=== PATIENT | female | born 1935 | race Caucasian/White ===

== ENCOUNTER 2017-06-09 09:00 | Inpatient (IN) | payer MEDICARE ==
--- OUTSIDE RECORDS SUMMARY | 2017-06-09 09:19 | XMS REPORT ---
:1935 External Reference #:[id number] Author Organization [facility] Address [address] [address] Phone [phone] Care Team Providers Name Role Phone Carmen Winter MD Primary Care Physician Unavailable Payers Type Date Identification Numbers Payment Provider Subscriber Commercial Policy Number: [id number] [employer] Rosalina Joya PayID: [id number] [address] [place] [address] Medigap Part B Expires: 2017 Policy Number: Medicare Rosalina Joya [id number] PayID: [id number] [address] [place] [address] Medigap Part B Expires: 2017 Policy Number: Aetna [facility] Rosalina Joya [id number] Group Number: [id number] [address] PayID: [id number] [place] [address] Problems Date Description Provider Status Onset: 10/01/2013 Atrial fibrillation Marsha Prado M.D. Active Onset: 10/01/2013 Difficulty breathing Marsha Prado M.D. Active Onset: 10/01/2013 Aortic valve disorder Marsha Prado M.D. Active Onset: 11/07/2014 Left bundle branch block Marsha Prado M.D. Active Onset: 11/21/2015 Paroxysmal atrial fibrillation Marsha Prado M.D. Active Onset: 07/04/2016 Essential hypertension Marsha Prado M.D. Active Onset: 08/06/2016 Obstructive sleep apnea syndrome Gretel Gimenez MD Active Family History Date Family Member(s) Problem(s) Comments General Hypertension General Congestive Heart Failure (CHF) General Arrhythmia General Alzheimer's Disease General Stroke Father Alzheimer's Disease Father due to Alzheimer's () Disease Mother Arrhythmia Mother due to Stroke () - at 84 years of age. Mother Stroke Social History Type Date Description Comments Marital Status Single Lives With Alone Occupation Retired ETOH Use Occasionally consumes alcohol Smoking Patient is a former smoker quit in 1997 1PPD x 40 years Recreational Drug Use Denies Drug Use Daily Caffeine Consumes on average 1 cup of regular coffee per day Daily Caffeine Iced Tea occassionally Exercise Type/Frequency Does not exercise PT Allergies, Adverse Reactions, Alerts Date Description Reaction Status Severity Comments 07/03/2012 Topical Sulfa Urticaria active Moderate to Severe 03/23/2013 Zestril Cough active Medications Medication Date Status Form Strength Qnty SIG Indications Ordering Provider Gabapentin 04/18/ Active Capsules 300mg 180ca 1 tabs by G25.0 Maggy Smith 2015 ps mouth every Stackman, morning and M.D. 2 tab by mouth every night Clonazepam 05/17/ Active Tablets 0.125mg 20tab 1 by mouth Maryanne 2014 Dispers s twice a day Cowdery, as needed M.D. tremor Potassium 09/13/ Active Tablets 10Meq 90tab 1 by mouth Marsha Chloride ER 2014 ER s every day Hayden Prado Spironolactone 07/05/ Active Tablets 25mg 90tab 1 tab by Marsha Johns s mouth every Ecru, day (takes M.D. with furosemide) (last taken 2 weeks ago Apr 2017 Flu) Primidone 01/01/ Active Tablets 50mg 540ta 3 po bid Jonny De La Cruz 2012 leighton Solis M.D. Cozaar 11/18/ Active Tablets 25mg 45tab 1/2 tab by Marsha 2012 s mouth every Eve, day M.D. Furosemide 07/02/ Active Tablets 20mg 180ta 2 tabs by Marsha manzanares mouth every Ecru, day as M.D. directed ( last taken approx 2 weeks ago Flu 04/2017) Pradaxa / Active Capsules 150mg 200ca po bid Unknown 0000 ps Flovent Diskus / Active Aerosol 50mcg/Bli 60uni inhale [address] ts puff by mouth 2 times a day prn for asthma Fish Oil / Active 1000mg 1 cap po Unknown 0000 daily (not taking) Calcium 0000/ Active 1200Iu daily Unknown 0000 Vitamin D / Active 2000Iu 1 tablet po Unknown 0000 daily Vitamin B-12 / Active Tablets 500mcg 90tab 1 po qd Unknown 0000 s Premarin / Active Cream 0.625mg/G 42.50 1 Unknown 0000 M 0gm application pv 3 x weekly Econazole / Active Cream 1% 30g prn Unknown Nitrate 0000 Triamcinolone / Active 0.1% b.i.d prn Unknown Cream 0000 Cpap / Active Device 1unit nightly Unknown 0000 s Halobetasol / Active Cream 0.05% 50uni apply Unknown Propionate 0000 ts topically twice daily prn Lotrisone / Active Cream 1-0.05% 15gm apply Unknown 0000 externally bid prn Proventil HFA / Active Aerosol 108(90Bas 1unit 2 puff(s) Unknown 0000 e) s inhalation mcg/Act four times a day as needed Vitamin C / Active Tablets 500mg 1 by mouth Unknown 0000 daily Loratadine / Active Tablets 10mg 1 by mouth Unknown Allergy Relief 0000 Dispers every day Nasacort Allergy / Active Aerosol 55mcg/Act 1 spray both Unknown 24HR 0000 nares once daily Topamax / Active Tablets 50mg 180ta 1 po bid Jonny S. 0000 leighton Solis M.D. Flecainide 05/15/ Hx Tablets 50mg 90tab 1/2 tablet I48.0 Marsha Acetate 2017 - s bid, take Eve, 06/03/ with 100 mg M.D. 2017 tablets. Pravastatin 06/23/ Hx Tablets 10mg 1 po qd Marsha Sodium 2013 - Eve, 06/23/ M.D. 2013 Pravastatin 06/23/ Hx Tablets 20mg 90tab 1 tablet by Marsha Sodium 2013 - s mouth once Ecru, 11/05/ daily at M.D. 2013 bedtime Flecainide 05/28/ Hx Tablets 100mg 180ta 1 by mouth Marsha Acetate 2012 twice a day Ecru, take with 25 M.D. 2018 mg for total 125 mg bid Spironolactone 05/28/ Hx Tablets 25mg 90tab 1 po qd Marsha 2012 Eve, M.D. 2012 Pravastatin 03/26/ Hx Tablets 20mg 90tab 1 tablet by Marsha Sodium 2011 mouth every Ecru, M.D. 2012 Potassium / Hx Tablets 10Meq 90tab 1 po qd Marsha Chloride CR - ER s Ecru, M.D. 2013 Primidone / Hx Tablets 100mg 90tab bid Unknown 0000 - s 2012 Gabapentin / Hx Capsules 300mg 360ca 1 tab in Am, Jonny S. 0000 - ps 2 tabs in PM Will, 04/18/ a M.D. 2016 day(titratin g dose to stop) Aldactone / Hx Tablets 25mg 30tab 1 po qd Unknown 0000 - s 2013 Cozaar / Hx Tablets 25mg 30tab 1 po qd Marsha - s Ecru, M.D. 2012 Pravachol / Hx Tablets 10mg 100ta 1 po qd Unknown 0000 - bs 2013 Lasix / Hx Tablets 20mg 30tab 1 po bid Unknown 0000 - s 2012 Nasacort Aq / Hx Aerosol 55mcg/Act 1unit use 1 spray Unknown 0000 - s ea nostril 12/18/ [facility] prn 2015 Aldactone / Hx Tablets 25mg 1 by mouth Unknown 0000 - every day 2014 Claritin / Hx Nasal 10mg 1 po qd Unknown 0000 - [place] 2016 Vital Signs Date Vital Result Comment 06/03/2017 Height 63 inches 5'3" Weight 131.75 lb with shoes Heart Rate 76 /min BP Systolic Sitting 102 mmHg LA, reg cuff BP Diastolic Sitting 58 mmHg LA, reg cuff BMI (Body Mass Index) 23.3 kg/m2 Ejection Fraction 55%-60% echo 01/23/17 05/22/2017 Height 63 inches 5'3" Weight 132.25 lb Heart Rate 68 /min BP Systolic 122 mmHg BP Diastolic 70 mmHg BMI (Body Mass Index) 23.4 kg/m2 05/15/2017 Height 63 inches 5'3" Weight 134.00 lb with shoes Heart Rate 101 /min BP Systolic Sitting 110 mmHg Lue reg cuff BP Diastolic Sitting 76 mmHg Lue reg cuff BP Systolic Standing 118 mmHg Lue reg cuff BP Diastolic Standing 70 mmHg Lue reg cuff Respiratory Rate 18 /min BMI (Body Mass Index) 23.7 kg/m2 Ejection Fraction 55-60% date 01/23/17 echo 01/01/2017 Height 63 inches 5'3" Weight 134.00 lb per pt` Heart Rate 64 /min reg BP Systolic Standing 130 mmHg Rue, reg cuff BP Diastolic Standing 80 mmHg Rue, reg cuff Respiratory Rate 16 /min O2 % BldC Oximetry 98 % on Ra BMI (Body Mass Index) 23.7 kg/m2 12/31/2016 Height 63 inches 5'3" Weight 133.38 lb per pt this Am 12/31/16 Heart Rate 62 /min BP Systolic Sitting 128 mmHg BP Diastolic Sitting 60 mmHg BP Systolic Standing 128 mmHg BP Diastolic Standing 60 mmHg Respiratory Rate 20 /min BMI (Body Mass Index) 23.6 kg/m2 Ejection Fraction 55-60% 12/14/2015-echo 11/19/2016 Height 63 inches 5'3" Weight 135.00 lb Heart Rate 62 /min BP Systolic Sitting 122 mmHg BP Diastolic Sitting 62 mmHg Respiratory Rate 24 /min O2 % BldC Oximetry 97 % room air BMI (Body Mass Index) 23.9 kg/m2 11/05/2016 Height 63 inches 5'3" Weight 135.00 lb Heart Rate 64 /min BP Systolic Sitting 128 mmHg BP Diastolic Sitting 60 mmHg Respiratory Rate 15 /min BMI (Body Mass Index) 23.9 kg/m2 10/01/2016 Height 63 inches 5'3" Weight 134.00 lb Heart Rate 68 /min BP Systolic Sitting 124 mmHg BP Diastolic Sitting 64 mmHg O2 % BldC Oximetry 96 % BMI (Body Mass Index) 23.7 kg/m2 08/06/2016 Height 63 inches 5'3" Weight 138.00 lb Heart Rate 56 /min BP Systolic Sitting 134 mmHg BP Diastolic Sitting 62 mmHg Respiratory Rate 16 /min O2 % BldC Oximetry 97 % BMI (Body Mass Index) 24.4 kg/m2 Neck Circumference in inches 13 07/04/2016 Height 63 inches 5'3" Weight 137.00 lb Heart Rate 60 /min BP Systolic Sitting 132 mmHg Lue reg cuff BP Diastolic Sitting 64 mmHg Lue reg cuff BP Systolic Standing 108 mmHg Lue BP Diastolic Standing 60 mmHg Lue Respiratory Rate 16 /min BMI (Body Mass Index) 24.3 kg/m2 Ejection Fraction 55-60% 12/14/15 04/18/2016 Height 63 inches 5'3" Weight 136.00 lb Heart Rate 68 /min BP Systolic Sitting 136 mmHg BP Diastolic Sitting 68 mmHg BMI (Body Mass Index) 24.1 kg/m2 12/29/2015 Height 63 inches 5'3" Weight 142.00 lb no shoes Heart Rate 62 /min BP Systolic Sitting 128 mmHg Ra reg cuff BP Diastolic Sitting 68 mmHg Ra reg cuff BP Systolic Standing 132 mmHg Ra reg cuff BP Diastolic Standing 70 mmHg Ra reg cuff Respiratory Rate 17 /min BMI (Body Mass Index) 25.2 kg/m2 Ejection Fraction 55-60% 12/14/2015 12/20/2015 Height 63 inches 5'3" Weight 144.50 lb Heart Rate 58 /min BP Systolic Sitting 124 mmHg BP Diastolic Sitting 64 mmHg Respiratory Rate 16 /min O2 % BldC Oximetry 97 % BMI (Body Mass Index) 25.6 kg/m2 11/21/2015 Height 63 inches 5'3" Weight 148.00 lb with shoes Heart Rate 62 /min BP Systolic Sitting 132 mmHg Ra reg cuff BP Diastolic Sitting 60 mmHg Ra reg cuff BP Systolic Standing 132 mmHg Ra reg cuff BP Diastolic Standing 60 mmHg Ra reg cuff Respiratory Rate 16 /min BMI (Body Mass Index) 26.2 kg/m2 Ejection Fraction 59% 10/07/13 06/14/2015 Height 63 inches 5'3" Weight 146.38 lb Heart Rate 64 /min BP Systolic Sitting 120 mmHg BP Diastolic Sitting 60 mmHg Respiratory Rate 14 /min BMI (Body Mass Index) 25.9 kg/m2 04/17/2015 Height 63 inches 5'3" Weight 148.38 lb without shoes Heart Rate 76 /min BP Systolic Sitting 136 mmHg LA reg cuff BP Diastolic Sitting 70 mmHg LA reg cuff BP Systolic Standing 128 mmHg LA reg cuff BP Diastolic Standing 62 mmHg LA reg cuff Respiratory Rate 16 /min BMI (Body Mass Index) 26.3 kg/m2 Ejection Fraction 59% date 10/07/13 ECHO 11/23/2014 Height 63 inches 5'3" Weight 148.00 lb Heart Rate 64 /min BP Systolic Sitting 112 mmHg BP Diastolic Sitting 64 mmHg Respiratory Rate 16 /min BMI (Body Mass Index) 26.2 kg/m2 11/07/2014 Height 63 inches 5'3" Weight 148.00 lb per pt Heart Rate 64 /min reg BP Systolic Sitting 114 mmHg Rue, reg cuff BP Diastolic Sitting 60 mmHg Rue, reg cuff BP Systolic Standing 106 mmHg Rue BP Diastolic Standing 64 mmHg Rue Respiratory Rate 18 /min BMI (Body Mass Index) 26.2 kg/m2 Ejection Fraction 59% as of 10/07/13 echo 05/17/2014 Height 63 inches 5'3" Weight 149.00 lb Heart Rate 64 /min BP Systolic Sitting 126 mmHg BP Diastolic Sitting 60 mmHg Respiratory Rate 16 /min BMI (Body Mass Index) 26.4 kg/m2 11/05/2013 Height 63 inches 5'3" Weight 150.00 lb with shoes Heart Rate 66 /min BP Systolic Sitting 146 mmHg LA reg cuff BP Diastolic Sitting 70 mmHg LA reg cuff BP Systolic Standing 132 mmHg LA reg cuff BP Diastolic Standing 68 mmHg LA reg cuff Respiratory Rate 16 /min BMI (Body Mass Index) 26.6 kg/m2 10/01/2013 Height 63 inches 5'3" Weight 151.00 lb w/o shoes (today 150lbs at home per pt) Heart Rate 62 /min BP Systolic Sitting 120 mmHg LA reg cuff BP Diastolic Sitting 60 mmHg LA reg cuff BP Systolic Standing 112 mmHg LA reg cuff BP Diastolic Standing 60 mmHg LA reg cuff Respiratory Rate 16 /min BMI (Body Mass Index) 26.7 kg/m2 04/26/2013 Height 65 inches 5'5" Weight 164.00 lb Heart Rate 58 /min BP Systolic Sitting 126 mmHg left arm, reg cuff BP Diastolic Sitting 76 mmHg left arm, reg cuff BP Systolic Standing 126 mmHg left arm, reg cuff BP Diastolic Standing 68 mmHg left arm, reg cuff Respiratory Rate 14 /min BMI (Body Mass Index) 27.3 kg/m2 03/23/2013 Height 65 inches 5'5" Weight 164.00 lb Heart Rate 68 /min BP Systolic Sitting 148 mmHg Ra reg cuff BP Diastolic Sitting 80 mmHg Ra reg cuff BP Systolic Standing 134 mmHg Ra BP Diastolic Standing 72 mmHg Ra Respiratory Rate 16 /min BMI (Body Mass Index) 27.3 kg/m2 07/03/2012 Heart Rate 60 /min BP Systolic Sitting 142 mmHg BP Diastolic Sitting 58 mmHg Respiratory Rate 14 /min Results Test Date Test Result H/L Range Note Rapid Influenza A & 05/09/2017 Influenza A Molecular NEGATIVE Negative 1 B Molecular Influenza B Molecular NEGATIVE Negative Laboratory test finding 05/09/2017 C Reactive Protein 27.03 mg/L High &lt ; 5.00 2 Comp Metabolic Panel 05/09/2017 Sodium 137 mmol/L 133-145 Potassium 3.9 mmol/L 3.5-5.0 Chloride 105 mmol/L 101-111 Co2 Carbon Dioxide 27 mmol/L 22-32 Anion Gap 5 mmol/L 2-11 Glucose 86 mg/dL 70-100 Blood Urea Nitrogen 18 mg/dL 6-24 Creatinine 1.06 mg/dL High 0.51-0.95 BUN/Creatinine Ratio 17.0 8-20 Calcium 8.2 mg/dL Low 8.6-10.3 Total Protein 6.1 g/dL Low 6.4-8.9 Albumin 2.7 g/dL Low 3.2-5.2 Globulin 3.4 g/dL 2-4 Albumin/Globulin Ratio 0.8 Low 1-3 Total Bilirubin 0.20 mg/dL 0.2-1.0 Alkaline Phosphatase 48 U/L 34-104 Alt 5 U/L Low 7-52 Ast 12 U/L Low 13-39 Egfr Non- 49.4 >60 Egfr 63.5 >60 3 CBC Auto Diff 05/09/2017 White Blood Count 6.0 10^3/uL 3.5-10.8 Red Blood Count 3.30 10^6/uL Low 4.0-5.4 Hemoglobin 9.2 g/dL Low 12.0-16.0 Hematocrit 29 % Low 35-47 Mean Corpuscular Volume 87 fL 80-97 Mean Corpuscular Hemoglobin 28 pg 27-31 Mean Corpuscular HGB Conc 32 g/dL 31-36 Red Cell Distribution Width 17 % High 10.5-15 Platelet Count 250 10^3/uL 150-450 Mean Platelet Volume 7 um3 Low 7.4-10.4 Abs Neutrophils 4.6 10^3/uL 1.5-7.7 Abs Lymphocytes 0.9 10^3/uL Low 1.0-4.8 Abs Monocytes 0.4 10^3/uL 0-0.8 Abs Eosinophils 0.1 10^3/uL 0-0.6 Abs Basophils 0 10^3/uL 0-0.2 Abs Nucleated RBC 0 10^3/uL Granulocyte % 76.7 % 38-83 Lymphocyte % 14.6 % Low 25-47 Monocyte % 7.3 % 1-9 Eosinophil % 0.9 % 0-6 Basophil % 0.5 % 0-2 Nucleated Red Blood Cells % 0.1 Laboratory test finding 05/09/2017 Rapid Influenza A B SEE RESULT BELOW 4 Antigen Basic Metabolic Panel 11/24/2012 Sodium 137 mmol/L 133-145 Potassium 4.3 mmol/L 3.5-5.0 Chloride 103 mmol/L 101-111 Co2 Carbon Dioxide 27.0 mmol/L 22-32 Anion Gap 7.0 mmol/L 2-11 Glucose 83 mg/dL 70-100 Blood Urea Nitrogen 13 mg/dL 6-24 Creatinine 0.90 mg/dL 0.50-1.40 BUN/Creatinine Ratio 14.4 8-20 Calcium 9.3 mg/dL 8.1-9.9 Egfr Non- 60.4 >60 Egfr 77.7 >60 5 1 Fisher Trap: [id number] 2 Acute inflammation: >10.00 3 Because ethnic data is not always readily available, this report includes an eGFR for both -Americans and non- Americans. The National Kidney Disease Education Program (NKDEP) does not endorse the use of the MDRD equation for patients that are not between the ages of 18 and 70, are , have extremes of body size, muscle mass, or nutritional status, or are non- or non-. According to the National Kidney Foundation, irrespective of diagnosis, the stage of the disease is based on the level of kidney function: Stage Description GFR(mL/min/1.73 m(2)) 1 Kidney damage with normal or decreased GFR 90 2 Kidney damage with mild decrease in GFR 60-89 3 Moderate decrease in GFR 30-59 4 Severe decrease in GFR 15-29 5 Kidney failure <15 (or dialysis) 4 SEE RESULT BELOW Name: ROSALINA JOYA : [address]: Marsha Prado MD Acct: [id number] Unit: [id number] AGE: 82 Location: [facility] Re05/09/17 SEX: F Status: REG REF SPEC: [id number] JOSEPH: 05/09/[address] [facility] [address]: Marsha Prado MD REQ: [id number] RECD: 05/09/17 STATUS: KEITH CHACON DR: Carmen Winter MD _ SOURCE: NASAL SPDESC: ORDERED: Flu A B Request Procedure Result Reported Site Rapid Influenza A B Request Final 05/09/17- 1156 ML Specimen received for Influenza A/B Molecular testing * ML - MAIN LAB ([facility]) . END OF REPORT * ML=Testing performed at Main Lab DEPARTMENT OF PATHOLOGY, [address] [place] [address] Devin Syed M.D. Director [facility] # [id number] 5 Because ethnic data is not always readily available, this report includes an eGFR for both -Americans and non- Americans. The National Kidney Disease Education Program (NKDEP) does not endorse the use of the MDRD equation for patients that are not between the ages of 18 and 70, are , have extremes of body size, muscle mass, or nutritional status, or are non- or non-. According to the National Kidney Foundation, irrespective of diagnosis, the stage of the disease is based on the level of kidney function: Stage Description GFR(mL/min/1.73 m(2)) 1 Kidney damage with normal or decreased GFR 90 2 Kidney damage with mild decrease in GFR 60-89 3 Moderate decrease in GFR 30-59 4 Severe decrease in GFR 15-29 5 Kidney failure <15 (or dialysis) Procedures Date CPT Code Description Status 06/03/2017 85051 EKG Tracing & Interpretation Completed 05/19/2017 30136 Cardioversion Completed 05/15/2017 66393 EKG Tracing & Interpretation Completed 05/09/2017 23071 Cardioversion Completed 05/07/2017 74971 EKG Tracing & Interpretation Completed 01/23/2017 03457 ECHO Transthoracic, Real-Time 2D With Doppler And Color Completed Flow 01/23/2017 91457 ECHO Transthoracic, Real-Time 2D With Doppler And Color Completed Flow 12/31/2016 86525 EKG Tracing & Interpretation Completed 07/04/2016 33613 EKG Tracing & Interpretation Completed 12/14/2015 22755 ECHO Transthoracic, Real-Time 2D With Doppler And Color Completed Flow 11/21/2015 64596 EKG Tracing & Interpretation Completed 04/17/2015 14475 EKG Tracing & Interpretation Completed 04/17/2015 42512 EKG Tracing & Interpretation Completed 11/07/2014 74074 EKG Tracing & Interpretation Completed 10/18/2013 23657 ECHO Stress Test Incl Perf Contiuous ekg Monitoring Completed W/Phys Superv 10/07/2013 03492 ECHO Transthoracic, Real-Time 2D With Doppler And Color Completed Flow 10/01/2013 82588 EKG Tracing & Interpretation Completed 03/16/2013 23732 ECHO Transthoracic, Real-Time 2D With Doppler And Color Completed Flow 11/03/2012 23735 EKG Tracing & Interpretation Completed 08/13/2012 82587 Carpal Tunnel Release Completed 08/13/2012 88881 Carpal Tunnel Release Completed 04/24/2012 14470 Rad Exam; Wrist Limited, 2 Views Completed 04/24/2012 40261 Rad Exam; Wrist Limited, 2 Views Completed 04/10/2012 33863 Rad Exam; Wrist Limited, 2 Views Completed 04/10/2012 92826 Rad Exam; Wrist Limited, 2 Views Completed 04/10/2012 07019 Short Arm Cast Application Completed 04/07/2012 50062 EKG, Tracing Only, No Interpretation Completed 04/07/2012 39030 EKG, Interpretation Only Completed 03/27/2012 13189 Rad Exam; Wrist Limited, 2 Views Completed 03/27/2012 38807 Rad Exam; Wrist Limited, 2 Views Completed 03/27/2012 44679 Short Arm Cast Application Completed 03/27/2012 09138 Short Arm Cast Application Completed 03/27/2012 44792 CLST TRMT Distal Radial FX Completed 03/13/2012 35908 Open TX Of Distal Radial Intra-Articular FX Or Completed Epiphyseal Septn 03/13/2012 43238 Open TX Of Distal Radial Intra-Articular FX Or Completed Epiphyseal Septn 11/25/2011 71477 Polysomnography Sleep Staging 4+ Parameters W/Cpap Completed 11/25/2011 77180 Polysomnography Sleep Staging 4+ Parameters W/Cpap Completed Encounters Type Date Location Provider CPT E/M Dx Office Visit 05/22/2017 [facility] Jonny Solis, 34321 I48.0 10:30a M.DFreya G25.0 Office Visit 05/15/2017 1:00p [facility] Marsha Prado M.D. 02628 I48.0 Animal Technician I44.7 Office Visit 01/01/2017 1:00p [facility] [place], 80962 G47.33 [facility] LOGAN ARTHUR, [facility] Office Visit 12/31/2016 3:00p [facility] Marsha Prado M.D. 74728 I44.7 [facility] I35.0 I48.0 R06.02 Office Visit 11/19/2016 3:00p [facility] [place], 75884 G47.33 [facility] LOGAN ARTHUR, [facility] R09.02 F45.8 Office Visit 11/05/2016 10:30a [facility] Jonny Solis, 32199 G25.0 [facility] Hayden R26.0 Office Visit 10/01/2016 1:30p [facility] [place] [address] G47.33 [facility] Office Visit 08/06/2016 2:45p [facility] [place] [address] G47.33 [facility] R68.2 I48.0 I42.9 Office Visit 07/04/2016 4:00p [facility] Marsha Prado M.D. 64091 I35.0 Joel I48.0 I44.7 I10 Office Visit 04/18/2016 9:45a [facility] Jonny Solis, 87074 G25.0 M.DFreya Office Visit 12/29/2015 1:15p [facility] Marsha Prado, 15778 I35.0 Hayden I48.0 R53.1 Office Visit 12/20/2015 2:45p [facility] Jonny Solis 68244 G25.0 Services Of Joel Blake R26.0 Office Visit 11/21/2015 11:15a [facility] Christopher Prado M.D. 63112 I44.7 Joel I35.0 I48.0 R53.1 R53.83 G47.33 I10 Office Visit 06/14/2015 2:45p [facility] Jonny Solis, 93417 G25.0 Services Of Animal Technician M.DFreya Office Visit 04/17/2015 3:00p [facility] DEX Barnard 95227MHB I48.0 Animal Technician I44.7 I35.0 Office Visit 11/23/2014 3:45p [facility] Jonny Solis, 42762 333.1 Services Of Joel Blake 781.3 Office Visit 11/07/2014 1:45p [facility] Marsha Prado M.D. 41569 427.31 Animal Technician 424.1 426.3 780.50 Office Visit 05/17/2014 11:45a [facility] Jonny Solis, 00976 333.1 Services Of Joel M.DFreya Office Visit 11/05/2013 2:00p [facility] Marsha Prado M.D. 94637 786.09 Animal Technician 780.79 424.1 426.3 Office Visit 10/01/2013 1:15p [facility] Marsha Prado M.D. 37954 427.31 [facility] 786.09 424.1 Office Visit 04/26/2013 1:00p [facility] Nurse Visit 81563 401.9 [facility] Office Visit 03/30/2013 11:00a [facility] Tanisha Campos M.D. 50553 354.0 C.M.AFreya Office Visit 03/23/2013 3:15p [facility] Marsha Prado M.D. 24025 424.1 Animal Technician 427.31 401.9 E880.9 Office Visit 01/04/2013 11:15a [facility] Lore Alvarez 52610 354.0 Of C.M.AFreya Blake 354.2 Office Visit 01/01/2013 11:45a [facility] Jonny Solis, 80973 333.1 Services Of Joel Blake 781.3 Office Visit 11/03/2012 2:45p [facility] Marsha Prado M.D. 26910 427.31 Animal Technician 424.1 401.9 272.0 Office Visit 07/03/2012 11:30a [facility] Jonny Solis, 20692 333.1 Services Of [facility] Hayden 781.3 Office Visit 04/07/2012 12:45p [facility] Marsha Prado M.D. 47888 427.31 [facility] 427.31 401.9 Office Visit 03/18/2012 4:09p [facility], Jessica Arnold, 78198 401.9 Hospitalists M.D. 780.53 814.12 814.09 Office Visit 03/17/2012 4:09p [facility], Jessica rAnold, 97442 401.9 Hospitalists M.D. 780.53 814.12 814.09 Office Visit 03/16/2012 4:08p [facility], Jessica Arnold, 58563 814.12 Hospitalists M.D. 814.09 401.9 780.53 Office Visit 03/15/2012 4:07p [facility], Jessica Arnold, 54153 780.53 Hospitalists M.DFreya 401.9 814.12 814.09 Office Visit 03/14/2012 4:07p [facility], Jessica Arnold, 45642 780.53 Hospitalists M.D. 401.9 814.12 814.09 Office Visit 03/12/2012 4:07p [facility], Abdifatah Tilley M.D. 04267 401.9 Hospitalists 780.53 814.12 814.09 Office Visit 03/11/2012 4:06p [facility], Abdifatah Tilley M.D. 67158 814.12 Hospitalists 814.09 401.9 780.53 Plan of Care Future Appointment(s):06/24/2017 11:00 am - Marsha Prado M.D. at [facility]06/10/2017 1:30 pm - Nurse Visit IC at [facility]11/26/2017 2:45 pm - Jonny Solis M.D. at [facility]06/23/2017 4:00 pm - Marsha Prado M.D. at [facility]2017 2:00 pm - Ica Nuclear Schedule at [facility]05/22/2017 - Jonny Solis M.D.I48.0 Paroxysmal atrial fibrillationFollow up:6 MONTHSRecommendations:increase primidone to 150 mg twice a dayG25.0 Essential tremor
--- OUTSIDE RECORDS SUMMARY | 2017-06-09 09:20 | XMS REPORT ---
:1935 External Reference #:[id number] [facility] Address [address] [address] Phone [phone] Care Team Providers Name Role Phone Carmen Winter MD Primary Care Physician Unavailable Payers Type Date Identification Numbers Payment Provider Subscriber Commercial Policy Number: [id number] [employer] Rosalina Joya PayID: [id number] [address] [place] [address] Medigap Part B Expires: 2017 Policy Number: Medicare Rosalina Joya [id number] PayID: [id number] [address] [place] [address] Medigap Part B Expires: 2017 Policy Number: [employer] [facility] Rosalina Joya [id number] Group Number: [id number] [address] PayID: [id number] [place] [address] Problems Date Description Provider Status Onset: 10/01/2013 [...] Form Strength Qnty SIG Indications Ordering Provider Flecainide 05/15/ Active Tablets 50mg 90tab 1/2 tablet I48.0 Marsha Acetate 2017 s bid, take [place], with 100 mg M.D. tablets. Gabapentin 04/18/ Active Capsules 300mg 180ca 1 tabs by G25.0 Maggy Smith 2015 ps mouth every [place], morning and M.D. 2 tab by mouth every night Clonazepam 05/17/ Active Tablets 0.125mg 20tab 1 by mouth Maryanne 2014 Dispers s twice a day [place], as needed M.D. tremor Potassium 09/13/ Active Tablets 10Meq 90tab 1 by mouth Marsha Chloride ER 2013 ER s every day Hayden Prado Spironolactone 07/05/ Active Tablets 25mg 90tab 1 tab by Marsha Johns s mouth every [place], day (last M.D. taken 2 weeks ago Apr 2017 Flu) Primidone 01/01/ Active Tablets 50mg 540ta 3 po bid Jonny De La Cruz 2012 leighton Solis M.D. Cozaar 11/18/ Active Tablets 25mg 45tab 1/2 tab by Marsha Casey s mouth every [place], day M.D. Furosemide 07/02/ Active Tablets 20mg 180ta 2 tabs by Marsha manzanares mouth every [place], day as M.D. directed ( last taken approx 2 weeks ago Flu 04/2017) Flecainide 05/28/ Active Tablets 100mg 180ta 1 by mouth Marsha Acetate 2012 bs twice a day [place], take with 25 M.D. mg for total 125 mg bid Pradaxa 00/ Active Capsules 150mg 200ca po bid Unknown 0000 ps Flovent Diskus / Active Aerosol 50mcg/Bli 60uni inhale [address] ts puff by mouth 2 times a day prn for asthma Fish Oil / Active 1000mg 1 cap po Unknown 0000 daily (not taking) Calcium 00/ Active 1200Iu daily Unknown 0000 Vitamin D / Active 2000Iu 1 tablet po Unknown 0000 daily Vitamin B-12 / Active Tablets 500mcg 90tab 1 po qd Unknown 0000 s Premarin 00/ Active Cream 0.625mg/G 42.50 1 Unknown 0000 M 0gm application pv 3 x weekly Econazole / Active Cream 1% 30g prn Unknown Nitrate 0000 Triamcinolone / Active 0.1% b.i.d prn Unknown Cream 0000 Cpap 00/ Active Device 1unit nightly Unknown 0000 s Halobetasol 00/ Active Cream 0.05% 50uni apply Unknown Propionate 0000 ts topically twice daily prn Lotrisone / Active Cream 1-0.05% 15gm apply Unknown 0000 externally bid prn Proventil HFA / Active Aerosol 108(90Bas 1unit 2 puff(s) Unknown 0000 e) s inhalation mcg/Act four times a day as needed Vitamin C / Active Tablets 500mg 1 by mouth Unknown 0000 daily Loratadine 00/ Active Tablets 10mg 1 by mouth Unknown Allergy Relief 0000 Dispers every day Nasacort Allergy / Active Aerosol 55mcg/Act 1 spray both Unknown 24HR 0000 nares once daily Topamax / Active Tablets 50mg 180ta 1 po bid Jonny S. 0000 bs Hayden Solis Pravastatin 06/23/ Hx Tablets 10mg 1 po qd Marsha Sodium 2013 - Eve 06/23/ Hayden 2013 Pravastatin 06/23/ Hx Tablets 20mg 90tab 1 tablet by Marsha Sodium 2013 - s mouth once [place], 11/05/ daily at M.D. 2013 bedtime Spironolactone 05/28/ Hx Tablets 25mg 90tab 1 po qd Marsha 2012 s Eve, M.D. 2012 Pravastatin 03/26/ Hx Tablets 20mg 90tab 1 tablet by Marsha Sodium 2011 - s mouth every [place], day M.D. 2012 Potassium / Hx Tablets 10Meq 90tab 1 po qd Marsha Chloride CR - ER s Eve, M.D. 2013 Primidone / Hx Tablets 100mg 90tab bid Unknown - s 2012 Gabapentin / Hx Capsules 300mg 360ca 1 tab in Am, S. 0000 - ps 2 tabs in PM Will, 04/18/ M.D. 2016 day(titratin g dose to stop) Aldactone / Hx Tablets 25mg 30tab 1 po qd Unknown - s 2013 Cozaar / Hx Tablets 25mg 30tab 1 po qd Marsha s Eve, M.D. 2012 Pravachol / Hx Tablets 10mg 100ta 1 po qd Unknown 0000 - bs 2013 Lasix / Hx Tablets 20mg 30tab 1 po bid Unknown 0000 - s 2012 Nasacort Aq / Hx Aerosol 55mcg/Act 1unit use 1 spray Unknown - s ea nostril 12/18/ [facility] prn 2016 Aldactone / Hx Tablets 25mg 1 by mouth Unknown 0000 - every day 2014 Claritin / Hx Nasal 10mg 1 po qd Unknown 0000 - [place] 2016 Vital Signs Date Vital Result Comment 05/22/2017 Height 63 inches 5'3" Weight 132.25 [...] Test Date Test Result H/L Range Note Laboratory test 05/09/2017 C Reactive Protein 27.03 mg/L High < 5.00 1 finding Rapid Influenza A 05/09/2017 Influenza A Molecular NEGATIVE Negative 2 & B Molecular Influenza B Molecular NEGATIVE Negative Laboratory test finding 05/09/2017 Rapid Influenza A B SEE RESULT BELOW 3 Antigen Comp Metabolic Panel 05/09/2017 Sodium 137 mmol/L [...] Egfr Non- 49.4 >60 Egfr 63.5 >60 4 CBC Auto Diff 05/09/2017 White Blood Count [...] 0-2 Nucleated Red Blood Cells % 0.1 Basic Metabolic Panel 11/24/2012 Sodium 137 mmol/L 133-145 Potassium 4.3 mmol/L 3.5-5.0 Chloride 103 mmol/L 101-111 Co2 Carbon Dioxide 27.0 mmol/L 22-32 Anion Gap 7.0 mmol/L 2-11 Glucose 83 mg/dL 70-100 Blood Urea Nitrogen 13 mg/dL 6-24 Creatinine 0.90 mg/dL 0.50-1.40 BUN/Creatinine Ratio 14.4 8-20 Calcium 9.3 mg/dL 8.1-9.9 Egfr Non- 60.4 >60 Egfr 77.7 >60 5 1 Acute inflammation: >10.00 2 Batch Analyst: [id number] 3 SEE RESULT BELOW Name: ROSALINA JOYA : [address]: Marsha Prado MD Acct: [id number] Unit: [id number] AGE: 82 Location: [facility] Re05/09/17 SEX: F Status: REG REF SPEC: [id number] JOSEPH: 05/09/17-[address]: Marsha Prado MD REQ: [id number] RECD: 05/09/17 STATUS: COMP OT DR: Carmen Winter MD _ SOURCE: NASAL SPDESC: ORDERED: Flu A B Request Procedure Result Reported Site Rapid Influenza A B Request Final 05/09/17- 1156 ML Specimen received for Influenza A/B Molecular testing * ML - MAIN LAB ([facility]) . END OF REPORT * ML=Testing performed at Main Lab DEPARTMENT OF PATHOLOGY, [address] [place] [address] Devin Syed M.D. Director [facility] # [id number] 4 Because ethnic data is not always readily [...] 15-29 5 Kidney failure <15 (or dialysis) 5 Because ethnic data is not always [...] dialysis) Procedures Date CPT Code Description Status 05/15/2017 01064 EKG Tracing & Interpretation Completed 05/09/2017 35222 Cardioversion Completed 05/07/2017 56702 EKG Tracing & Interpretation Completed 01/23/2017 18850 ECHO Transthoracic, Real-Time 2D With Doppler And Color Completed Flow 01/23/2017 49830 ECHO Transthoracic, Real-Time 2D With Doppler And Color Completed Flow 12/31/2016 98242 EKG Tracing & Interpretation Completed 07/04/2016 47081 EKG Tracing & Interpretation Completed 12/14/2015 42067 ECHO Transthoracic, Real-Time 2D With Doppler And Color Completed Flow 11/21/2015 70881 EKG Tracing & Interpretation Completed 04/17/2015 70772 EKG Tracing & Interpretation Completed 04/17/2015 95264 EKG Tracing & Interpretation Completed 11/07/2014 54608 EKG Tracing & Interpretation Completed 10/18/2013 56932 ECHO Stress Test Incl Perf Contiuous ekg Monitoring Completed W/Phys Superv 10/07/2013 05595 ECHO Transthoracic, Real-Time 2D With Doppler And Color Completed Flow 10/01/2013 30553 EKG Tracing & Interpretation Completed 03/16/2013 93123 ECHO Transthoracic, Real-Time 2D With Doppler And Color Completed Flow 11/03/2012 91494 EKG Tracing & Interpretation Completed 08/13/2012 46092 Carpal Tunnel Release Completed 08/13/2012 51323 Carpal Tunnel Release Completed 04/24/2012 32209 Rad Exam; Wrist Limited, 2 Views Completed 04/24/2012 46046 Rad Exam; Wrist Limited, 2 Views Completed 04/10/2012 62335 Rad Exam; Wrist Limited, 2 Views Completed 04/10/2012 79161 Rad Exam; Wrist Limited, 2 Views Completed 04/10/2012 19603 Short Arm Cast Application Completed 04/07/2012 91908 EKG, Interpretation Only Completed 04/07/2012 95376 EKG, Tracing Only, No Interpretation Completed 03/27/2012 43129 CLST TRMT Distal Radial FX Completed 03/27/2012 11418 Short Arm Cast Application Completed 03/27/2012 09695 Short Arm Cast Application Completed 03/27/2012 39280 Rad Exam; Wrist Limited, 2 Views Completed 03/27/2012 05028 Rad Exam; Wrist Limited, 2 Views Completed 03/13/2012 43972 Open TX Of Distal Radial Intra-Articular FX Or Completed Epiphyseal Septn 03/13/2012 22783 Open TX Of Distal Radial Intra-Articular FX Or Completed Epiphyseal Septn 11/25/2011 80432 Polysomnography Sleep Staging 4+ Parameters W/Cpap Completed 11/25/2011 24965 Polysomnography Sleep Staging 4+ Parameters W/Cpap Completed Encounters Type Date Location Provider CPT E/M Dx Office Visit 01/01/2017 [facility] [place], 61199 G47.33 1:00p Services Of Joel ARTHUR RN, JAQUELIN Office Visit 12/31/2016 [facility] Marsha Prado M.D. 47709 I44.7 3:00p Joel I35.0 I48.0 R06.02 Office Visit 11/19/2016 3:00p [facility] [place], 80762 G47.33 Services Of Joel ARTHUR RN, JAQUELIN R09.02 F45.8 Office Visit 11/05/2016 10:30a [facility] Jonny Solis, 31900 G25.0 Services Of Operating Room Orderly M.D. R26.0 Office Visit 10/01/2016 1:30p [facility] [place] [address] G47.33 Services Of Operating Room Orderly Office Visit 08/06/2016 2:45p [facility] [place] [address] G47.33 Services Of Operating Room Orderly R68.2 I48.0 I42.9 Office Visit 07/04/2016 4:00p [facility] Marsha Prado M.D. 92244 I35.0 Operating Room Orderly I48.0 I44.7 I10 Office Visit 04/18/2016 9:45a [facility] Jonny Solis 09235 G25.0 M.D. Office Visit 12/29/2015 1:15p [facility] Joel Prado 12947 I35.0 M.DFreya I48.0 R53.1 Office Visit 12/20/2015 2:45p [facility] Jonny Solis 72111 G25.0 Services Of Operating Room Orderly M.D. R26.0 Office Visit 11/21/2015 11:15a [facility] Marsha Prado M.D. 84058 I44.7 Joel I35.0 I48.0 R53.1 R53.83 G47.33 I10 Office Visit 06/14/2015 2:45p [facility] Jonny Solis 64388 G25.0 Services Of Operating Room Orderly M.D. Office Visit 04/17/2015 3:00p [facility] DEX Barnard 95588TDW I48.0 Operating Room Orderly I44.7 I35.0 Office Visit 11/23/2014 3:45p [facility] Jonny Solis 80228 333.1 Services Of Operating Room Orderly M.D. 781.3 Office Visit 11/07/2014 1:45p [facility] Marsha Prado M.D. 68010 427.31 Operating Room Orderly 424.1 426.3 780.50 Office Visit 05/17/2014 11:45a [facility] Jonny Solis 56773 333.1 Services Of Operating Room Orderly M.D. Office Visit 11/05/2013 2:00p [facility] Marsha Prado M.D. 60296 786.09 Operating Room Orderly 780.79 424.1 426.3 Office Visit 10/01/2013 1:15p [facility] Marsha Prado M.D. 42726 427.31 Operating Room Orderly 786.09 424.1 Office Visit 04/26/2013 1:00p [facility] Nurse Visit 02507 401.9 Operating Room Orderly Office Visit 03/30/2013 11:00a [facility] Of Tanisha Campos M.D. 04425 354.0 C.M.A. Office Visit 03/23/2013 3:15p [facility] Marsha Prado M.D. 01728 424.1 Operating Room Orderly 427.31 401.9 E880.9 Office Visit 01/04/2013 11:15a [facility] Lore Alvarez, 02047 354.0 Of C.M.AFreya Blake 354.2 Office Visit 01/01/2013 11:45a [facility] Jonny Solis, 25506 333.1 Services Of [facility] M.DFreya 781.3 Office Visit 11/03/2012 2:45p [facility] Marsha Prado M.D. 19261 427.31 [facility] 424.1 401.9 272.0 Office Visit 07/03/2012 11:30a [facility] Jonny Solis, 31571 333.1 Services Of Operating Room Orderly M.DFreya 781.3 Office Visit 04/07/2012 12:45p [facility] Marsha Prado M.D. 16415 427.31 Operating Room Orderly 427.31 401.9 Office Visit 03/18/2012 4:09p [facility], Jessica Arnold, 19640 401.9 Hospitalists M.D. 780.53 814.12 814.09 Office Visit 03/17/2012 4:09p [facility], Jessica Arnold, 54133 401.9 Hospitalists M.DFreya 780.53 814.12 814.09 Office Visit 03/16/2012 4:08p [facility], Jessica Arnold, 58815 814.12 Hospitalists M.D. 814.09 401.9 780.53 Office Visit 03/15/2012 4:07p [facility], Jessicakarley Arnold, 47175 780.53 Hospitalists Hayden 401.9 814.12 814.09 Office Visit 03/14/2012 4:07p [facility], Jessica Arnold, 30373 780.53 Hospitalists [place]den 401.9 814.12 814.09 Office Visit 03/12/2012 4:07p [facility], Abdifatah Tilley M.D. 74097 401.9 Hospitalists 780.53 814.12 814.09 Office Visit 03/11/2012 4:06p [facility], Abdifatah Tilley M.D. 67383 814.12 Hospitalists 814.09 401.9 780.53 Plan of Care Future Appointment(s):11/26/2017 2:45 pm - Jonny Solis M.D. at [facility]06/23/2017 4:00 pm - Marsha Prado M.D. at [facility]06/12/2017 2:00 pm - Ica Nuclear Schedule at [facility]05/22/2017 - Jonny Solis M.D.I48.0 Paroxysmal atrial fibrillationFollow up:6 MONTHSRecommendations:increase primidone to 150 mg twice a dayG25.0 Essential tremor
--- OUTSIDE RECORDS SUMMARY | 2017-06-09 09:20 | XMS REPORT ---
:1935 External Reference #:[id number] Author Organization [facility] Address [address] [address] Phone [phone] Care Team Providers Name Role Phone Carmen Winter MD Primary Care Physician Unavailable Payers Type Date Identification Numbers Payment Provider Subscriber Medicare Primary Policy Number: [id number] Medicare Rosalina Joya PayID: [id number] [address] [place] [address] [facility] Policy Number: [id number] [employer] Rosalina Joya Group Number: [id number] [address] PayID: [id number] [place] [address] Problems Date Description Provider Status Onset: 10/01/2013 [...] 50mg 90tab 1/2 tablet I48.0 Marsha Acetate 2018 s bid, take [place], with 100 mg M.D. tablets. Gabapentin 04/18/ [...] Chloride ER 2014 ER s every day Eve, M.D. Spironolactone 07/05/ Active Tablets 25mg 90tab 1 tab by Marsha Johns s mouth every [place], day (last M.D. taken 2 weeks ago Apr 2017 Flu) Primidone 01/01/ Active Tablets 50mg 360ta 3 in am by Jonny Casey bs mouth two at [place], night M.D. Cozaar 11/18/ Active Tablets 25mg 45tab 1/2 tab by Marsha 2012 s mouth every [place], day M.D. Furosemide 07/02/ Active Tablets 20mg 180ta 2 tabs by Marsha Casey bs mouth every [place], day as M.D. directed ( last taken approx 2 weeks ago Flu 04/2017) Flecainide 05/28/ Active Tablets 100mg 180ta 1 by mouth Marsha Acetate Carmela bs twice a day Eve, take with 25 M.D. mg for total 125 mg bid Pradaxa 0000/ Active Capsules 150mg 200ca po bid Unknown 0000 ps Flovent Diskus / Active Aerosol 50mcg/Bli 60uni inhale [address] ts puff by mouth 2 times a day prn for asthma Fish Oil / Active 1000mg 1 cap po Unknown 0000 daily (not taking) Calcium 00/00/ Active 1200Iu daily Unknown 0000 Vitamin D [...] bid Jonny S. 0000 leighton Solis M.D. Pravastatin 06/23/ Hx Tablets 10mg 1 po qd Marsha Sodium 2013 - Eve, 06/23/ M.D. 2013 Pravastatin 06/23/ Hx Tablets 20mg 90tab 1 tablet by Marsha Sodium 2013 mouth once Eve, 11/05/ daily at M.DFreya 2013 bedtime Spironolactone 05/28/ Hx Tablets 25mg 90tab 1 po qd Marsha 2012 - Eve, M.D. 2012 Pravastatin 03/26/ Hx Tablets 20mg 90tab 1 tablet by Marsha Sodium 2011 mouth every , M.D. 2012 Potassium / Hx Tablets 10Meq 90tab 1 po qd Marsha Chloride CR - ER s [place], M.D. 2013 Primidone / Hx Tablets 100mg 90tab bid Unknown 0000 - s 2012 Gabapentin / Hx Capsules 300mg 360ca 1 tab in Am, Jonny SFreya 0000 - ps 2 tabs in PM Will, M.D. 2016 day(titratin g dose to stop) Aldactone / Hx Tablets 25mg 30tab 1 po qd Unknown 0000 - s 2013 Cozaar / Hx Tablets 25mg 30tab 1 po qd Marsha - s [place], M.D. 2012 Pravachol / Hx Tablets 10mg 100ta 1 po qd Unknown 0000 - bs 2013 Lasix / Hx Tablets 20mg 30tab 1 po bid Unknown 0000 - s 2012 Nasacort Aq / Hx Aerosol 55mcg/Act 1unit use 1 spray Unknown - s ea nostril 12/18/ [facility] 2016 Aldactone / Hx Tablets 25mg 1 by mouth Unknown 0000 - every day 2014 Claritin / Hx Nasal 10mg 1 po qd Unknown 0000 - [place] 2016 Vital Signs Date Vital Result Comment 05/15/2017 Height 63 inches 5'3" Weight 134.00 [...] >60 5 1 Acute inflammation: >10.00 2 Food Tester: [id number] 3 SEE RESULT BELOW Name: ROSALINA JOYA : [address]: Marsha Prado MD Acct: [id number] Unit: [id number] AGE: 82 Location: [facility] Re05/09/17 SEX: F Status: REG REF SPEC: [id number] JOSEPH: 05/09/[address] [facility] [address]: Marsha Prado MD REQ: [id number] RECD: 05/09/17 STATUS: KEITH CHACON DR: Carmen Winter MD _ SOURCE: NASAL SPDESC: ORDERED: Flu A B Request Procedure Result Reported Site Rapid Influenza A B Request Final 05/09/17- 1156 ML Specimen received for Influenza A/B Molecular testing * ML - MAIN LAB ([facility]) . END OF REPORT * ML=Testing performed at Main Lab DEPARTMENT OF PATHOLOGY, [address] [place] [address] Devin Syed M.D. Director [facility] # [id number] 4 Because ethnic data is not always [...] Procedures Date CPT Code Description Status 05/15/2017 54536 EKG Tracing & Interpretation Completed 05/07/2017 87225 EKG Tracing & Interpretation Completed 01/23/2017 67914 ECHO Transthoracic, Real-Time 2D With Doppler And Color Completed Flow 01/23/2017 33979 ECHO Transthoracic, Real-Time 2D With Doppler And Color Completed Flow 12/31/2016 58395 EKG Tracing & Interpretation Completed 07/04/2016 32772 EKG Tracing & Interpretation Completed 12/14/2015 50853 ECHO Transthoracic, Real-Time 2D With Doppler And Color Completed Flow 11/21/2015 00044 EKG Tracing & Interpretation Completed 04/17/2015 73312 EKG Tracing & Interpretation Completed 04/17/2015 04440 EKG Tracing & Interpretation Completed 11/07/2014 81629 EKG Tracing & Interpretation Completed 10/18/2013 66965 ECHO Stress Test Incl Perf Contiuous ekg Monitoring Completed W/Phys Superv 10/07/2013 56245 ECHO Transthoracic, Real-Time 2D With Doppler And Color Completed Flow 10/01/2013 86781 EKG Tracing & Interpretation Completed 03/16/2013 23997 ECHO Transthoracic, Real-Time 2D With Doppler And Color Completed Flow 11/03/2012 89306 EKG Tracing & Interpretation Completed 08/13/2012 45548 Carpal Tunnel Release Completed 08/13/2012 79452 Carpal Tunnel Release Completed 04/24/2012 17160 Rad Exam; Wrist Limited, 2 Views Completed 04/24/2012 15334 Rad Exam; Wrist Limited, 2 Views Completed 04/10/2012 55086 Rad Exam; Wrist Limited, 2 Views Completed 04/10/2012 56741 Rad Exam; Wrist Limited, 2 Views Completed 04/10/2012 04756 Short Arm Cast Application Completed 04/07/2012 65431 EKG, Interpretation Only Completed 04/07/2012 64585 EKG, Tracing Only, No Interpretation Completed 03/27/2012 33703 CLST TRMT Distal Radial FX Completed 03/27/2012 02518 Short Arm Cast Application Completed 03/27/2012 25584 Short Arm Cast Application Completed 03/27/2012 00634 Rad Exam; Wrist Limited, 2 Views Completed 03/27/2012 67146 Rad Exam; Wrist Limited, 2 Views Completed 03/13/2012 19251 Open TX Of Distal Radial Intra-Articular FX Or Completed Epiphyseal Septn 03/13/2012 78435 Open TX Of Distal Radial Intra-Articular FX Or Completed Epiphyseal Septn 11/25/2011 69546 Polysomnography Sleep Staging 4+ Parameters W/Cpap Completed 11/25/2011 86987 Polysomnography Sleep Staging 4+ Parameters W/Cpap Completed Encounters Type Date Location Provider CPT E/M Dx Office Visit 05/15/2017 1:00p [facility] Marsha Prado M.D. 33641 I48.0 Joel I44.7 Office Visit 01/01/2017 1:00p [facility] [place], 73303 G47.33 Services Of Joel ARTHUR RN, JAQUELIN Office Visit 12/31/2016 3:00p [facility] Marsha Prado M.D. 07030 I44.7 Joel I35.0 I48.0 R06.02 Office Visit 11/19/2016 3:00p [facility] [place] 65493 G47.33 Services Of Joel ARTHUR RN, JAQUELIN R09.02 F45.8 Office Visit 11/05/2016 10:30a Lynn Solis 81093 G25.0 Services Of Joel Blake R26.0 Office Visit 10/01/2016 1:30p [facility] [place] [address] G47.33 Services Of Medical Billing Coder Office Visit 08/06/2016 2:45p [facility] [place] [address] G47.33 Services Of Medical Billing Coder R68.2 I48.0 I42.9 Office Visit 07/04/2016 4:00p [facility] Marsha Prado M.D. 84346 I35.0 Medical Billing Coder I48.0 I44.7 I10 Office Visit 04/18/2016 9:45a [facility] Jonny Solis 39651 G25.0 M.D. Office Visit 12/29/2015 1:15p [facility]illing [facility]oder Marsha Prado 03003 I35.0 M.D. I48.0 R53.1 Office Visit 12/20/2015 2:45p [facility] Jonny Solis 32450 G25.0 Services Of Medical Billing Coder M.D. R26.0 Office Visit 11/21/2015 11:15a [facility] Marsha Prado M.D. 44974 I44.7 Joel I35.0 I48.0 R53.1 R53.83 G47.33 I10 Office Visit 06/14/2015 2:45p [facility] Jonny Solis 49891 G25.0 Services Of Medical Billing Coder M.D. Office Visit 04/17/2015 3:00p [facility] DEX Barnard 85496RJM I48.0 Medical Billing Coder I44.7 I35.0 Office Visit 11/23/2014 3:45p [facility] Jonny Solis 16215 333.1 Services Of Medical Billing Coder M.D. 781.3 Office Visit 11/07/2014 1:45p [facility] Marsha Prado M.D. 37892 427.31 Medical Billing Coder 424.1 426.3 780.50 Office Visit 05/17/2014 11:45a [facility] Jonny Solis 10615 333.1 Services Of Medical Billing Coder M.D. Office Visit 11/05/2013 2:00p [facility] Marsha Prado M.D. 16840 786.09 Medical Billing Coder 780.79 424.1 426.3 Office Visit 10/01/2013 1:15p [facility] Marsha Prado M.D. 52599 427.31 Medical Billing Coder 786.09 424.1 Office Visit 04/26/2013 1:00p [facility] [place] [address] 401.9 [facility] Office Visit 03/30/2013 11:00a [facility] Of Tanisha Campos M.D. 04459 354.0 C.M.A. Office Visit 03/23/2013 3:15p [facility] Marsha Prado M.D. 05514 424.1 Medical Billing Coder 427.31 401.9 E880.9 Office Visit 01/04/2013 11:15a [facility] Lore Alvarez 91929 354.0 Of C.MMerlin Blake 354.2 Office Visit 01/01/2013 11:45a [facility] Jonny Solis 19087 333.1 Services Of Joel Blake 781.3 Office Visit 11/03/2012 2:45p [facility] Marsha Prado M.D. 97961 427.31 [facility] 424.1 401.9 272.0 Office Visit 07/03/2012 11:30a [facility] Jonny Solis, 78669 333.1 Services Of Joel Blake 781.3 Office Visit 04/07/2012 12:45p [facility] Marsha Prado M.D. 94490 427.31 Medical Billing Coder 427.31 401.9 Office Visit 03/18/2012 4:09p [facility], Jessica Arnold, 55725 401.9 Hospitalists M.D. 780.53 814.12 814.09 Office Visit 03/17/2012 4:09p [facility], Jessica Arnold, 14696 401.9 Hospitalists M.D. 780.53 814.12 814.09 Office Visit 03/16/2012 4:08p [facility], Jessica Arnold, 25090 814.12 Hospitalists M.D. 814.09 401.9 780.53 Office Visit 03/15/2012 4:07p [facility],gill Arnold, 51730 780.53 Hospitalists M.D. 401.9 814.12 814.09 Office Visit 03/14/2012 4:07p [facility], Jessica Arnold, 80727 780.53 Hospitalists [place] 401.9 814.12 814.09 Office Visit 03/12/2012 4:07p [facility], Abdifatah Tilley M.D. 06134 401.9 Hospitalists 780.53 814.12 814.09 Office Visit 03/11/2012 4:06p [facility],gill Tilley M.D. 33558 814.12 Hospitalists 814.09 401.9 780.53 Plan of Care Future Appointment(s):06/23/2017 4:00 pm - Marsha Prado M.D. at [facility]05/19/2017 11:00 am - Marlo Iyer DO FAC at [facility]06/12/2017 2:00 pm - [facility] at [facility]05/22/2017 3:00 pm - Jonny Solis M.D. at [facility]05/15/2017 - Marsha Prado M.D.I48.0 Paroxysmal atrial fibrillationNew Medication:Flecainide Acetate 50 mgNew Orders: CardioversionEchocardiogramFollow up:OV 2-4 weeks, or DEX with ECG and after echo done.Recommendations:Increase flecainide to 125 mg twice daily (100 mg + half of a 50 mg tablet twice daily).I44.7 Left bundle-branch block, unspecified
[2017-06-09] MEDS ORDERED: Clotrimazole/Betamethasone CREAM* 15 GM TOPICAL PRN (09:53)
[2017-06-09] MEDS ORDERED: Albuterol HFA INHALER* 8 gm MDI INH PRN (09:53)
[2017-06-09] MEDS ORDERED: Zolpidem TAB* 5 MG PO PRN (10:00)
[2017-06-09 11:29] LABS: EGFR Non-African American 48.3 (>60)
[2017-06-09 11:36] LABS: Hematocrit 31 % (35-47); Hemoglobin 9.9 g/dl (12.0-16.0); Mean Corpuscular HGB Conc 32 g/dl (31-36); Mean Corpuscular Hemoglobin 27 pg (27-31); Mean Corpuscular Volume 86 fL (80-97); Mean Platelet Volume 8 um3 (7.4-10.4); Platelet Count 218 10^3/ul (150-450); Red Blood Count 3.64 10^6/ul (4.0-5.4); Red Cell Distribution Width 17 % (10.5-15); White Blood Count 5.5 10^3/ul (3.5-10.8)
[2017-06-09 11:37] LABS: ABS Basophils 0 10^3/ul (0-0.2); ABS Eosinophils 0.2 10^3/ul (0-0.6); ABS Lymphocytes 1.2 10^3/ul (1.0-4.8); ABS Monocytes 0.4 10^3/ul (0-0.8); ABS Neutrophils 3.7 10^3/ul (1.5-7.7); ABS Nucleated RBC 0 10^3/ul; Eosinophil % 4.2 % (0-6); Lymphocyte % 21.2 % (25-47); Nucleated Red Blood Cells % 0.1
[2017-06-09] MEDS: Dofetilide CAP* 125 MCG PO SCH ×2 (12:34→21:51)
[2017-06-09] MEDS ORDERED: Potassium Chloride LIQUID* 20 MEQ PACKET PO SCH (13:00)
[2017-06-09] MEDS ORDERED: Gabapentin CAP(*) 300 MG PO SCH (18:00)
[2017-06-09] MEDS ORDERED: Mometasone 220 MCG MDI INH SCH (18:00)
[2017-06-09] MEDS: CMC Dabigatran CAP(NF) 150 MG CAP PO SCH (21:49)
[2017-06-09] MEDS: Potassium Chlor TAB* 10 MEQ TAB.ER PO SCH (21:50)
[2017-06-09] MEDS: Topiramate TAB(*) 25 MG PO SCH (21:50)
[2017-06-09] MEDS: Losartan TAB* 25 MG PO SCH (21:50)
[2017-06-09] MEDS: Triamcinolone 0.025% OINT * 15 GM TUBE TOPICAL SCH (21:51)
[2017-06-09] MEDS ORDERED: Gabapentin CAP(*) 100 MG PO ONE (22:40)
[2017-06-09] MEDS: Primidone TAB(*) 50 MG PO SCH ×3 (23:13→23:22)
[2017-06-10] MEDS: Gabapentin CAP(*) 100 MG PO SCH ×2 (09:18→17:56)
[2017-06-10] MEDS: Cholecalciferol TAB* 1000 UNITS PO SCH (09:18)
[2017-06-10] MEDS: Furosemide TAB* 20 MG PO SCH (09:19)
[2017-06-10] MEDS: Spironolactone TAB* 25 MG PO SCH (09:19)
[2017-06-10] MEDS: Topiramate TAB(*) 25 MG PO SCH ×2 (09:19→20:24)
[2017-06-10] MEDS: CMC Dabigatran CAP(NF) 150 MG CAP PO SCH ×2 (09:21→20:21)
[2017-06-10] MEDS: Acetaminophen TAB* 325 MG PO PRN ×2 (09:22→17:57)
[2017-06-10] MEDS: Fluticasone NASAL SPRAY 50MCG* 16 gm SPRAY BTL BOTH NARES SCH (09:23)
[2017-06-10] MEDS: Triamcinolone 0.025% OINT * 15 GM TUBE TOPICAL SCH ×2 (09:23→20:28)
[2017-06-10] MEDS: Cyanocobalamin TAB* 500 MCG PO SCH (09:36)
[2017-06-10] MEDS: Primidone TAB(*) 50 MG PO SCH ×2 (09:36→20:23)
[2017-06-10] MEDS: Dofetilide CAP* 125 MCG PO SCH ×2 (09:37→20:22)
[2017-06-10 09:38] LABS: EGFR Non-African American 56.7 (>60)
[2017-06-10] MEDS ORDERED: Nitroglycerin TAB 0.4 MG* 0.4 MG TAB SL PRN (17:37)
[2017-06-10] MEDS: Potassium Chlor TAB* 10 MEQ TAB.ER PO SCH (20:23)
[2017-06-10] MEDS: Losartan TAB* 25 MG PO SCH (22:12)
[2017-06-11] MEDS: Triamcinolone 0.025% OINT * 15 GM TUBE TOPICAL SCH ×2 (09:00→20:12)
[2017-06-11] MEDS: Fluticasone NASAL SPRAY 50MCG* 16 gm SPRAY BTL BOTH NARES SCH (09:14)
[2017-06-11] MEDS: Dofetilide CAP* 125 MCG PO SCH ×2 (09:15→21:24)
[2017-06-11] MEDS: CMC Dabigatran CAP(NF) 150 MG CAP PO SCH ×2 (09:15→20:10)
[2017-06-11] MEDS ORDERED: fentaNYL* 50 MCG/ML 2 ML VIAL (100 MCG VIAL) ONE (11:30)
[2017-06-11] MEDS ORDERED: Naloxone* 0.4 MG/ML 1 ML VIAL ONE (11:31)
[2017-06-11] MEDS ORDERED: Flumazenil* 0.1 MG/ML 5 ML MDV ONE (11:31)
[2017-06-11] MEDS ORDERED: Midazolam* 1 MG/ML 10 ML VIAL (10 MG) ONE (11:31)
--- NOTE | 2017-06-11 12:13 | PN ---
Subjective Date of Service: 06/11/17 - CC: christensen, afib Interval History: Pt had chest pressure last night, different from CP she told us about in the office. She felt odd/not right. It responded to SL NTG and has not recurred. No c/o today. Medications Active Medications: Acetaminophen (Tylenol Tab*) 650 mg PO Q6H PRN PRN Reason: PAIN Last Admin: 06/10/17 17:57 Dose: 650 mg Albuterol (Ventolin Hfa Inhaler*) 2 puff INH QID PRN PRN Reason: DYSPNEA Betamethasone/Clotrimazole (Lotrisone Cream*) 1 applic TOPICAL BID PRN PRN Reason: erythema Cholecalciferol (Vitamin D Tab*) 2,000 units PO QAM [facility] Last Admin: 06/10/17 09:18 Dose: 2,000 units Cyanocobalamin (Vitamin B12 Tab*) 500 mcg PO QAM [facility] Last Admin: 06/10/17 09:36 Dose: 500 mcg Dabigatran (Pradaxa Cap(Nf)) 150 mg PO BID [facility] Last Admin: 06/11/17 09:15 Dose: 150 mg Dofetilide (Tikosyn Cap*) 125 mcg PO BID [facility] Last Admin: 06/11/17 09:15 Dose: 125 mcg Fluticasone Propionate (Flonase Nasal [place] 50mcg*) 1 spray BOTH NARES DAILY [facility] Last Admin: 06/11/17 09:14 Dose: 1 spray Furosemide (Lasix Tab*) 40 mg PO DAILY [facility] Last Admin: 06/10/17 09:19 Dose: 40 mg Gabapentin (Neurontin Cap(*)) 100 mg PO QAM [facility] Last Admin: 06/10/17 09:18 Dose: 100 mg Gabapentin (Neurontin Cap(*)) 200 mg PO QPM [facility] Last Admin: 06/10/17 17:56 Dose: 200 mg Losartan Potassium (Cozaar Tab*) 12.5 mg PO BEDTIME [facility] Last Admin: 06/10/17 22:12 Dose: 12.5 mg Nitroglycerin (Nitroglycerin Tab 0.4 Mg*) 0.4 mg SL Q5M PRN PRN Reason: ANGINA Last Admin: 06/10/17 17:57 Dose: 0.4 mg Potassium Chloride (Klor Con Er Tab*) 10 meq PO BEDTIME [facility] Last Admin: 06/10/17 20:23 Dose: 10 meq Primidone (Mysoline Tab(*)) 150 mg PO BID [facility] Last Admin: 06/10/17 20:23 Dose: 150 mg Spironolactone (Aldactone Tab*) 25 mg PO QAM [facility] Last Admin: 06/10/17 09:19 Dose: 25 mg Topiramate (Topamax(*)) 50 mg PO BID [facility] Last Admin: 06/10/17 20:24 Dose: 50 mg Triamcinolone Acetonide (Triamcinolone 0.025% Oint *) 1 applic TOPICAL BID [facility] Last Admin: 06/10/17 20:28 Dose: 1 applic Zolpidem Tartrate (Ambien Tab*) 5 mg PO BEDTIME PRN PRN Reason: INSOMNIA Objective Vital Signs: Temp Pulse Resp BP Pulse Ox 98.4 F 79 20 102/47 93 06/11/17 07:31 06/11/17 07:31 06/11/17 08:00 06/11/17 07:31 06/11/17 07:31 Oxygen Devices in Use Now: None Appearance: elderly female, in bed, no accute distress, appears at usual baseline. Eyes: No Scleral Icterus, PERRLA Ears/Nose/Mouth/Throat: Clear Oropharnyx, Mucous Membranes Moist Neck: NL Appearance and Movements; NL JVP, Trachea Midline, No Thyroid Enlargement, Masses Respiratory: Clear to Auscultation Cardiovascular: No Edema, - - Irregularly irregular, +SM. Abdominal: NL Sounds; No Tenderness; No Distention, No Hepatosplenomegaly Lymphatic: No Axillary Adenopathy Extremities: No Edema, No Clubbing, Cyanosis Skin: No Rash or Ulcers Neurological: Alert and Oriented x 3, NL Gait - tremor, long standing. Lines/Tubes/Other Access: Clean, Dry and Intact Peripheral IV Laboratory Results: 06/09/17 11:04 06/11/17 10:09 06/10/17 06/11/17 06/11/17 18:25 00:52 05:17 Troponin I 0.01 0.01 0.01 EKG Data: Monitor: afib, LBBB, borderline, QTc 500 ms (with LBBB). Assessment/Plan 82 yo female with almost 20 years PAF, originally presented with EF 10%, CHF, unaware of afib. Her EF normalized with latter day of NSR. Pt now breaking through flecainide, symptomatic with increased CHRISTENSEN in afib, here for Tikosyn loading. Now s/p successful electrical cardioversion. ECG in NSR pending. Continue current Tikosyn dose for now. Possible discharge in AM. CP: Normal CA's on distant cath, but needs a stress test. As trops normal X 3 post CP we will keep current stress test ordered as out patient.
[2017-06-11] MEDS ORDERED: Potassium Chlor TAB* 10 MEQ TAB.ER PO ONE (12:14)
[2017-06-11] MEDS: Topiramate TAB(*) 25 MG PO SCH ×2 (14:56→23:25)
[2017-06-11] MEDS: Furosemide TAB* 20 MG PO SCH (14:56)
[2017-06-11] MEDS: Primidone TAB(*) 50 MG PO SCH ×2 (14:57→23:25)
[2017-06-11] MEDS: Gabapentin CAP(*) 100 MG PO SCH ×2 (14:58→20:11)
[2017-06-11] MEDS: Cyanocobalamin TAB* 500 MCG PO SCH (14:58)
[2017-06-11] MEDS: Spironolactone TAB* 25 MG PO SCH (14:58)
[2017-06-11] MEDS: Cholecalciferol TAB* 1000 UNITS PO SCH (14:58)
--- NOTE | 2017-06-11 21:10 | CARD ---
CC: Dr. Carmen Winter* ELECTRICAL CARDIOVERSION: DATE OF PROCEDURE: 06/11/17 PROCEDURE: Electrical cardioversion. PREPROCEDURE DIAGNOSIS: Atrial fibrillation, status post Tikosyn loading. POSTPROCEDURE DIAGNOSIS: Atrial fibrillation status post Tikosyn loading. DESCRIPTION OF PROCEDURE: The indications, risks, and benefits of the procedure were discussed with the patient and she was amendable to proceeding. A time-out was called. AP patches have been placed on the patient's chest wall. The patient received a total of 3 mg of Versed and 25 mcg of fentanyl for sedation. She had some mild apnea with sats dropping into the 80s, which responded to oxygen. This was removed and 150 joules of energy was delivered across the chest wall with successful cardioversion to normal sinus rhythm. Other than the transient drop in saturations off oxygen, the patient was hemodynamically stable and no complications. 12-lead ECG is pending. CONCLUSION: Successful electrical cardioversion on Tikosyn. [id number]/CPS #: [id number] MTDRoderick
[2017-06-11] MEDS: Potassium Chlor TAB* 10 MEQ TAB.ER PO SCH (23:25)
[2017-06-11] MEDS: Losartan TAB* 25 MG PO SCH (23:25)
[2017-06-12] MEDS: Fluticasone NASAL SPRAY 50MCG* 16 gm SPRAY BTL BOTH NARES SCH (10:10)
[2017-06-12] MEDS: Primidone TAB(*) 50 MG PO SCH (10:10)
[2017-06-12] MEDS: Dofetilide CAP* 125 MCG PO SCH (10:10)
[2017-06-12] MEDS: Spironolactone TAB* 25 MG PO SCH (10:11)
[2017-06-12] MEDS: Furosemide TAB* 20 MG PO SCH (10:11)
[2017-06-12] MEDS: Gabapentin CAP(*) 100 MG PO SCH (10:11)
[2017-06-12] MEDS: CMC Dabigatran CAP(NF) 150 MG CAP PO SCH (10:11)
[2017-06-12] MEDS: Cholecalciferol TAB* 1000 UNITS PO SCH (10:11)
[2017-06-12] MEDS: Cyanocobalamin TAB* 500 MCG PO SCH (10:11)
[2017-06-12] MEDS: Topiramate TAB(*) 25 MG PO SCH (10:11)
[2017-06-12] MEDS: Triamcinolone 0.025% OINT * 15 GM TUBE TOPICAL SCH (10:22)
[2017-06-12 11:22] LABS: EGFR Non-African American 59.7 (>60)
[2017-06-12 11:30] VITALS: BP 113/45
[2017-06-12] MEDS ORDERED: Potassium Chlor TAB* 20 MEQ TAB.ER PO ONE (11:30)
[2017-06-12] MEDS ORDERED: Magnesium Sulfate 1 GM IV* 1 GM/100 ML BAG IV ONE (11:35)
--- NOTE | 2017-06-12 21:32 | DS ---
CC: Dr. Winter * DISCHARGE SUMMARY: DATE OF ADMISSION: 06/09/17 DATE OF DISCHARGE: 06/12/17 HISTORY OF PRESENT ILLNESS AND HOSPITAL COURSE: Marylou Velasquez is an 82-year-old woman with a long-standing history of paroxysmal atrial fibrillation going back almost 20 years. When she first presented, she was unaware of the rhythm and her ejection fraction was 10%. The patient's ejection fraction normalized with maintenance of normal sinus rhythm and most recently she had been on flecainide, but was breaking through. Flecainide was stopped and she was admitted for elective loading for Tikosyn. The patient arrived in atrial fibrillation. Tikosyn was loaded, with her left bundle branch blocks the patient's QT intervals were in the high 400s, but the medication was able to be continued. She underwent electrical cardioversion on 06/11/17 and was uneventful and successful. Today the patient states she feels much much better on Tikosyn and post cardioversion, her chronic resting tremor is improved and she just generally feels better. She has no chest pain. Two days ago, the patient had chest pressure at late afternoon, early evening, relieved with 1 sublingual nitroglycerin and had negative troponins. This is different than chest pain she had described to us in the office and she is walking without any difficulty of shortness of breath or pain or pressure. The patient has a problem list of: 1. Paroxysmal atrial fibrillation. 2. Rhythm-induced cardiomyopathy. 3. Obstructive sleep apnea. 4. Dyslipidemia. 5. Tremors since childhood. 6. Left bundle branch block. 7. Aortic stenosis. 8. First degree AV block. 9. Recently diagnosed anemia (April 2017). PAST SURGICAL HISTORY: Includes: 1. Partial thyroidectomy in 1967. 2. Cataract surgery in 2014. 3. Wrist surgery after a fall. 4. Breast biopsy in 1988. See admission H and P for family history and social history. PHYSICAL EXAMINATION: On exam the day of discharge, the patient is 5 feet 4 inches, weighs 132 pounds with a BMI of 23. Blood pressure 111/47, pulse sinus rhythm 59 beats a minute, respiratory rate is 16, oxygen saturation on room air 95% and she is afebrile. General appearance: Elderly woman in bed, just finished her breakfast, appears comfortable in no acute distress. Psychological : Calm, cooperative, pleasant. Neurological: Awake, alert, oriented to person , place and time. Cranial nerves II through XII intact. Grossly normal sensory and motor function in the upper and lower extremities and normal gait. Tremor not evident at the time I saw her and has been ambulating on the floor with normal gait. Skin: Warm, dry, age-appropriate changes. HEENT: Pupils were equal and round. Mucous membranes moist. Poor dentition consistent with age. Neck without thyromegaly or lymphadenopathy appreciated. Breath sounds were clear with good effort. No wheezes, rales or rhonchi. Coronary: S1, S2. Regular 2/6 mid to late peaking systolic murmur heard in the right upper sternal border with radiation. Abdomen: Soft and nontender. Lower extremities are free of edema. DIAGNOSTIC STUDIES/LAB DATA: Labs from 06/09/17; white count 5.5, hemoglobin 9.9, hematocrit 31, platelets 218,000. From 06/11/17; sodium 136, potassium 3.6 , chloride 105, bicarb 26, BUN 14, creatinine 0.87, magnesium 2.0. Troponins from 06/10/17 through 06/11/17 0.01, 0.01, 0.01. A 12-lead ECG done today on Tikosyn 125 mcg b.i.d., fully loaded shows normal sinus rhythm, 64 beats a minute. QRS axis -60 with incomplete left bundle branch block and she has a corrected QT interval of 481 milliseconds, QT 466. ST segments are unremarkable. In summary, Rosalina Velasquez is an 82-year-old woman with longstanding paroxysmal atrial fibrillation, status post successful Tikosyn loading and cardioversion who is clinically doing well and in fact improved off flecainide ( QT intervals are prolonged, but some of this is due to her conduction delay, not just Tikosyn). We will discharge her on her current dose. Verbal and written instructions provided about the risks of combining Tikosyn with rate lowering medications and she is aware this can include antibiotics, antifungals and antidepressants and more. She will follow up in our office with the previously scheduled stress test for her chest pain as well as followup EKGs and echo to follow up on her aortic stenosis. ADDENDUM: THE PATIENT WENT BACK INTO ATRIAL FIBRILLATION PRIOR TO DISCHARGE. LABS WERE THEN BACK, KCL MILDLY LOW, MAGNESIUM LOW NORMAL. PT GIVEN POTASSIUM AND MAGNESIUM, SENT HOME IN AFIB, CONTROLLED RATE ON TIKOSYN. [id number]/CPS #: [id number] [facility]
== END 2017-06-12 15:05 | disposition home or self-care (01) | DRG 310 ==
LOC: MEDTELE 09:13
PROVIDERS: ADMIT Specialist; ATTEND Specialist
PROC: 5A2204Z Restoration of Cardiac Rhythm, Single (ICD-10-PCS; principal; 2017-06-11 11:15)
DX: I48.0 Paroxysmal atrial fibrillation (principal); I42.8 Other cardiomyopathies; D64.9 Anemia, unspecified; I44.7 Left bundle-branch block, unspecified; G47.33 Obstructive sleep apnea (adult) (pediatric); E78.5 Hyperlipidemia, unspecified; I35.0 Nonrheumatic aortic (valve) stenosis; I44.0 Atrioventricular block, first degree; E83.42 Hypomagnesemia; E87.6 Hypokalemia; I45.81 Long QT syndrome; I10 Essential (primary) hypertension; G25.0 Essential tremor; R07.9 Chest pain, unspecified; Z98.49 Cataract extraction status, unspecified eye; Z88.2 Allergy status to sulfonamides; Z88.8 Allergy status to other drugs, medicaments and biological substances; Z82.49 Family history of ischemic heart disease and other diseases of the circulatory system; Z82.3 Family history of stroke; Z82.0 Family history of epilepsy and other diseases of the nervous system; Z87.891 Personal history of nicotine dependence
CPT/HCPCS: 36415; 80048; 83735; 84443; 84484; 85025; 92960; 93005; 99156; A9270-GY; J2250; J2310; J3010; J3475

== ENCOUNTER 2018-11-13 15:04 | Inpatient (IN) | payer MEDICARE ==
--- NOTE | 2018-11-13 15:11 | ED ---
Adult Trauma - HPI Summary HPI Summary: This pt is an 83 y/o female presenting to [facility] via EMS after a fall 3 days ago. Pt reports her cat vomited 3 days ago and she was going to the kitchen to get towels when she lost her balance and fell. Pt states she has been on the floor since Friday (today is Friday). She notes she was not able to get back up after her fall. Denies head strike or LOC. Pt used a bowl to urinate but has not had a bowel movement since then. Denies any other complaints. Pt's friends were trying to connect with her and they couldn't, and EMS found her on the floor. EMs reports pt's right leg is turned. Pt is on Pradaxa. - History of Current Complaint Stated Complaint: FALL ON FLOOR BEEN DOWN SINCE NOVEMBER 10 PER FAMILY Hx Obtained From: Patient Mechanism of Injury: Fall Ambulatory at the Scene: No Loss of Consciousness: no loss of consciousness Onset/Duration: Started Days Ago - 2, Still Present Location: Extremities - left hip Associated Signs & Symptoms: Positive: Negative. Negative: Abdominal Pain, Nausea/Vomiting, Loss of Consciousness Related History: Anticoagulants - Allergy/Home Medications Allergies/Adverse Reactions: Allergies Allergy/AdvReac Type Severity Reaction Status Date / Time lisinopril Allergy Coughing Verified 11/13/18 16:45 Sulfa (Sulfonamide Allergy Rash Verified 11/13/18 16:45 Antibiotics) PMH/Surg Hx/FS Hx/Imm Hx Endocrine/Hematology History: Reports: Hx Anticoagulant Therapy, Hx Thyroid Disease Denies: Hx Diabetes Cardiovascular History: Reports: Hx Congestive Heart Failure - under control- resolved as per patient, Hx Hypertension - on medication, Hx Valvular Heart Disease - STENOSIS OF AORTIC VALVE, DR. ARRIOLA CARDIOLOGIS Denies: Hx Pacemaker/ICD Respiratory History: Reports: Hx Asthma - controlled, Hx Seasonal Allergies, Hx Sleep Apnea - brought own bipap machine Denies: Hx Chronic Obstructive Pulmonary Disease (COPD) History: Denies: Hx Dialysis, Hx Renal Disease Musculoskeletal History: Reports: Hx Arthritis - HERE AND THERE SPINE AND HANDS Denies: Hx Osteoporosis Sensory History: Reports: Hx Cataracts, Hx Contacts or Glasses Denies: Hx Glaucoma, Hx Deafness, Hx Hearing Aid, Hx Hearing Problem Opthamlomology History: Reports: Hx Cataracts, Hx Contacts or Glasses Denies: Hx Glaucoma Neurological History: Reports: Other Neuro Impairments/Disorders - ESSENTIAL TREMOR Denies: Hx Dementia, Hx Headaches, Hx Migraine, Hx Seizures Psychiatric History: Denies: Hx Panic Disorder, Hx Substance Abuse - Cancer History Hx Chemotherapy: No Hx Radiation Therapy: No - Surgical History Surgery Procedure, Year, and Place: 1967 removed 1/ thyroid. tonsilectomy at age 1. left breast biopsy. LEFT WRIST REPAIR WITH HARDWARE 2012. BILATERAL CATARACTS. CARPAL TUNNEL RIGHT WRIST Hx Anesthesia Reactions: No Infectious Disease History: Denies: Hx Hepatitis, Hx Human Immunodeficiency Virus (HIV) - Family History Family History: Father with Alzheimer's. Mother with stroke - Social History Alcohol Use: Occasionally Alcohol Amount: 1 glass of wine at dinner Substance Use Type: Reports: None Smoking Status (MU): Former Smoker Review of Systems Negative: Fever Cardiovascular: Negative Respiratory: Negative Gastrointestinal: Negative Musculoskeletal: Other - POSITIVE: right leg is turned Neurological: Other - NEGATIVE: LOC All Other Systems Reviewed And Are Negative: Yes Physical Exam - Summary Physical Exam Summary: VITAL SIGNS: Reviewed. GENERAL: Patient is a well-developed and nourished female who is lying comfortable in the stretcher. Patient is not in any acute respiratory distress. HEAD AND FACE: No signs of trauma to the head or neck. No LOC. No ecchymosis, hematomas or skull depressions. No sinus tenderness. EYES: PERRLA, EOMI x 2, No injected conjunctiva, no nystagmus. EARS: Hearing grossly intact. Ear canals and tympanic membranes are within normal limits. MOUTH: Oropharynx within normal limits. NECK: Supple, trachea is midline, no adenopathy, no JVD, no carotid bruit, no c- spine tenderness, neck with full ROM. CHEST: Symmetric, no tenderness at palpation LUNGS: Clear to auscultation bilaterally. No wheezing or crackles. CVS: Regular rate and rhythm, S1 and S2 present, no murmurs or gallops appreciated. ABDOMEN: Soft, non-tender. No signs of distention. No rebound, no guarding, and no masses palpated. Bowel sounds are normal. EXTREMITIES: Deformity of the right hip and decreased ROM. NEURO: Alert and oriented x 3. No acute neurological deficits. Speech is normal and follows commands. SKIN: Dry and warm. Type 2 decubitus ulcer. Type 1 decubitus ulcer in the upper back. Erythema in the upper and lower back. Triage Information Reviewed: Yes Vital Signs On Initial Exam: Initial Vitals Temp Pulse Resp BP Pulse Ox 98.8 F 122 16 121/63 97 11/13/18 15:10 11/13/18 15:10 11/13/18 15:10 11/13/18 15:10 11/13/18 15:10 Vital Signs Reviewed: Yes Diagnostics - Laboratory Result Diagrams: 11/13/18 15:30 11/13/18 15:30 Lab Statement: Any lab studies that have been ordered have been reviewed, and results considered in the medical decision making process. - Radiology Chest XR Radiology Interpretation Completed By: Radiologist Summary of Radiographic Findings: IMPRESSION: No evidence for active cardiopulmonary disease. Dr. Calderon has reviewed this report. Right hip and pelvis XR Radiology Interpretation Completed By: Radiologist Summary of Radiographic Findings: IMPRESSION: Comminuted intertrochanteric fracture right hip with medial displacement of the distal fracture fragment. Dr. Calderon has reviewed this report. - EKG 15:35 Cardiac Rate: Tachycardia - at 102 bpm EKG Rhythm: Atrial Fibrillation Ectopy: PVCs EKG Comparison: No Significant Change - similar to prior on 02/11/18. Summary of EKG Findings: PVCs. Adult Trauma Course/Dx - Course Assessment/Plan: This pt is an 83 y/o female presenting to [facility] via EMS after a fall 3 days ago. Pt reports her cat vomited 3 days ago and she was going to the kitchen to get towels when she lost her balance and fell. Pt states she has been on the floor since Friday afternoon (today is Friday). She notes she was not able to get back up after her fall. Denies head strike or LOC. Pt used a bowl to urinate but has not had a bowel movement since then. Denies any other complaints. Pt's friends were trying to connect with her and they couldn't, and EMS found her on the floor. EMs reports pt's right leg is turned. Pt is on Pradaxa. Blood test results were significant for a slight anemia with a hemoglobin of 11, hematocrit 34, BUN is 36, CPK is 1043, CRP is 152, BNP is 501 and Urinalysis is negative for UTI. Chest x-ray impression: No evidence for active cardiopulmonary disease. Hip x-ray impression: Comminuted intertrochanteric fracture of the right hip with medial displacement or the distal fracture fragment. The ED course the patient was given IV fluids for hydration, and treatment of rhabdomyolysis. The patient has not required anything for pain at this point. I discussed the case with Dr. Lopez from orthopedics and he will consult for this patient. I discussed my physical exam and test results with Dr. Peña from the hospitalist services and she agrees to admit patient to her services. Patient is hemodynamically stable, alert and oriented x 3. - Diagnoses Provider Diagnoses: Intertrochanteric fracture of right femur, Rhabdomyolysis, Dehydration - Physician Notifications Discussed Care Of Patient With: Antony Lopez Time Discussed With Above Provider: 16:44 Instructed by Provider To: Other - Discussed the case with Dr. Lopez, orthopedist, who will consult for the pt. [16:45] Discussed pt care with Dr. Peña, hospitalist, who accepted the pt for admission. Discharge - Sign-Out/Discharge Documenting (check all that apply): Patient Departure - Admit to [facility] [place] All imaging exams completed and their final reports reviewed: Yes Patient Received Moderate/Deep Sedation with Procedure: No - Discharge Plan Condition: Stable Disposition: ADMITTED TO [facility] - Billing Disposition and Condition Condition: STABLE Disposition: Admitted to [facility] - Attestation Statements Document Initiated by Camryn: Yes Documenting Scribe: Mayela Guadalupe Provider For Whom Camryn is Documenting (Include Credential): Capo Calderon MD Scribe Attestation: Mayela So, scribed for Capo Calderon MD on 11/13/18 at 2107. Scribe Documentation Reviewed: Yes Provider Attestation: The documentation as recorded by the Mayela south accurately reflects the service I personally performed and the decisions made by me, Capo Calderon MD Status of Scribe Document: Viewed
[2018-11-13] MEDS ORDERED: NS 0.9% 1000 ML** 1,000 ML IV ONE (15:14)
[2018-11-13 15:46] LABS: ABS Lymphocytes 1.2 10^3/ul (1.0-4.8); ABS Monocytes 0.7 10^3/ul (0-0.8); ABS Neutrophils 7.4 10^3/ul (1.5-7.7); Eosinophil % 0.2 %; Hematocrit 34 % (35-47); Lymphocyte % 12.5 %; Mean Corpuscular HGB Conc 33 g/dL (31-36); Mean Corpuscular Hemoglobin 32 pg (27-31); Mean Corpuscular Volume 98 fL (80-97); Mean Platelet Volume 7.8 fL (7.4-10.4); Platelet Count 207 10^3/uL (150-450); Red Blood Count 3.46 10^6 /uL (3.70-4.87); Red Cell Distribution Width 15 % (10-15); White Blood Count 9.3 10^3/uL (3.5-10.8)
[2018-11-13 15:56] LABS: Urine Appearance Cloudy; Urine Bacteria Absent (Absent); Urine Bilirubin Negative (Negative); Urine Blood Negative (Negative); Urine Color Amber; Urine Glucose Negative (Negative); Urine Ketones 1+ (Negative); Urine Nitrite Negative (Negative); Urine Protein 1+(30 mg/dL) (Negative); Urine Red Blood Cell Absent (Absent); Urine Specific Gravity 1.027 (1.010-1.030); Urine Squamous Epithelial Cell Present (Absent); Urine Urobilinogen Negative (Negative); Urine White Blood Cell Absent (Absent)
[2018-11-13 16:00] LABS: Albumin 3.6 g/dL (3.2-5.2); BUN/Creatinine Ratio 39.6 (8-20); C Reactive Protein 152.3 mg/L (<8.01); Calcium 9.3 mg/dL (8.6-10.3); EGFR African American 71.1 (>60); EGFR Non-African American 58.8 (>60); Globulin 3.5 g/dL (2-4); Magnesium 2.4 mg/dL (1.9-2.7); Potassium 4.8 mmol/L (3.5-5.0); Total Bilirubin 0.5 mg/dL (0.2-1.0); Total Protein 7.1 g/dL (6.4-8.9)
[2018-11-13] MEDS ORDERED: Morphine INJ* 2 MG/ML 1 ML SYRINGE (TWO MG - NEW SYRINGE VERSION) IV PRN (18:36)
[2018-11-13] MEDS ORDERED: oxyCODONE/Acetamin 5/325 MG* TAB PO PRN (18:36)
[2018-11-13] MEDS ORDERED: Ondansetron INJ* 2 MG/ML VIAL IV PRN (18:36)
[2018-11-13] MEDS ORDERED: traMADol TAB* 50 MG PO PRN (18:44)
[2018-11-13] MEDS ORDERED: NS 0.9% 1000 ML** 1,000 ML IV SCH (18:45)
[2018-11-13] MEDS ORDERED: clonazePAM TAB(*) 0.5 MG PO PRN (18:46)
[2018-11-13] MEDS ORDERED: Mometasone 220 MCG MDI INH PRN (18:46)
[2018-11-13] MEDS ORDERED: Metoprolol Succinate XL TAB* 50 MG PO SCH (19:00)
[2018-11-13] MEDS ORDERED: Senna TAB PO PRN (19:03)
[2018-11-13 19:09] LABS: INR 1.11 (0.82-1.09)
[2018-11-13] MEDS ORDERED: Heparin VIAL(*) 5000 UNITS/ML VIAL (FIVE THOUSAND) SUBCUT ONE (20:00)
--- NOTE | 2018-11-13 21:25 | HP ---
AMENDED REPORT NOW INCLUDES DESIGNATED COSIGNER CC: Dr. Carmen Winter; Dr. Marsha Prado; Dr. Jonny Solis * MEDICINE HISTORY AND PHYSICAL: DATE OF ADMISSION: 11/13/18 PROVIDER: April Jonas NP ATTENDING PHYSICIAN: Dr. Fredi Mccormack * (dictated by April Jonas NP). PRIMARY CARE PROVIDER: Dr. Carmen Winter. CONSULTING UKE DRIVER: Dr. Tremayne Driscoll. CONSULTING ORTHOPEDIC SURGEON: Dr. Antony Lopez. CHIEF COMPLAINT: Fall due to dizziness. HISTORY OF PRESENT ILLNESS: Ms. Velasquez is an 83-year-old female, who was brought in by EMS this morning following a fall that occurred 3 days ago. Ms. Velasquez states that on Friday, she felt herself go into AFib. She recently had a cardiac ablation in February, where she was successfully cardioverted into sinus rhythm and states that she has been in sinus rhythm since that time; however, on Friday, she felt fluttering and noted that she likely went back into atrial fibrillation. She states she took her blood pressure as she does monitor this at home and noted that she had a low blood pressure of 90/54. She did not cut down on her medications, she did not call her doctors. She said she was trying to wait it out into her next appointment. Unfortunately, her cat threw up in the hallway and she went to the kitchen to go get paper towels. She states that she turned too quickly, became dizzy, and lost her balance and fell down onto her right hip. She fell on Friday and had been lying on the floor since that time. She did attempt to use a nearby bowl to toilet herself. She was using mints found in her pockets as food and was covering herself up with a jacket on a chair. She could not access the phone. Her friends were trying to connect with her and could not reach her and finally activated EMS services. EMS came to the house and found her on the floor with her right leg turned. Here in the ER, she was found to have a total CK of 1043, CRP of 152, BNP of 501 , and a right hip comminuted intertrochanteric fracture. She is also currently in AFib with rates in the 120s to 130s. Ms. Velasquez denies any fever, chills, chest pain, or shortness of breath. She does state that she has "restriction in breathing" at baseline from her aortic stenosis; however, this does not feel worse to her. She denies any cough. She reports that she does get swelling in her legs with her left leg usually more swollen than her right leg due to incompetent valve of the leg. She denies any abdominal pain, nausea, vomiting, or diarrhea. She denies any dysuria or hematuria. Denies any focal weakness or sensory loss. Her pain to her right hip right now is minimal as she states she has high pain tolerance and has not been moving the extremity. No other complaints. PAST MEDICAL HISTORY: Includes: 1. Paroxysmal atrial fibrillation. 2. Obstructive sleep apnea. 3. Chronic systolic and diastolic heart failure. 4. Hypertension. 5. History of left bundle branch block. 6. Moderate aortic stenosis. 7. Dyslipidemia. 8. Essential tremor. 9. AVM of the colon. PAST SURGICAL HISTORY: Includes recent cardiac ablation, left breast biopsy in 1988, left wrist plate in 2011, partial thyroidectomy in 1967, and cataract surgery to both eyes in 2014. HOME MEDICATIONS: 1. Clonazepam 0.125 mg b.i.d. p.r.n. tremor. 2. Nasacort 1 spray both nares daily. 3. Triamcinolone 0.1% cream 1 application topically b.i.d. p.r.n. 4. Topamax 50 mg b.i.d. 5. Spironolactone 25 mg q.a.m. 6. Proventil 2 puffs inhaled four times a day p.r.n. 7. Primidone 150 mg b.i.d. 8. Potassium chloride tab 10 mEq at bedtime. 9. Metoprolol succinate 50 mg daily. 10. Loratadine 10 mg daily p.r.n. 11. Halobetasol propionate 1 application topical b.i.d. p.r.n. 12. Neurontin 300 mg in the morning and 600 mg at bedtime. 13. Furosemide 40 mg daily. 14. Flovent 1 puff inhaled b.i.d. p.r.n. 15. Ferrous gluconate 325 mg daily. 16. Miconazole topically for pruritus. 17. Pradaxa 150 mg b.i.d. 18. Vitamin B12 500 mcg q.a.m. 19. Premarin vaginal cream as needed. 20. Lotrisone topical b.i.d. p.r.n. 21. Calcium D 600 mg b.i.d. 22. Amiodarone 100 mg daily. 23. Nitroglycerin 0.4 mg sublingual q.5 minutes p.r.n. 24. Tylenol 650 mg q.6 hours p.r.n. ALLERGIES: Include LISINOPRIL and SULFA. FAMILY HISTORY: She reports a brother who of cardiac arrest at age 62. He also had history of hypertension and atrial fibrillation. Mother may have from a CVA. SOCIAL HISTORY: She is a former smoker. She quit in 1997. She reports rare alcohol use. She does live alone with 2 cats. She does not have any living family, but she has 2 friends, who she names as her healthcare proxy; the first is Zhao Valladares and the second is Marylou Booker. REVIEW OF SYSTEMS: A 12-point review of systems was completed. All pertinent positives and negatives as per HPI. PHYSICAL EXAMINATION GENERAL: This is a well-developed elderly female, lying in ED stretcher, in no acute distress. She is very pleasant and conversive. VITAL SIGNS: Temperature 98.8, heart rate is 106 to 120 on the monitor, respiratory rate 22, blood pressure 113/67, and O2 saturation is 95% on room air. HEENT: Head is atraumatic, normocephalic. Pupils are equal, round, and reactive to light and accommodation. Extraocular movements are intact. Sclerae are anicteric. Oral mucosa is moist. There is no oropharyngeal erythema or exudate. NECK: Supple with full range of motion. No lymphadenopathy appreciated. No JVD noted. No carotid bruits auscultated. CARDIAC: Irregularly irregular rate and rhythm. Rate is somewhat tachycardic. There is a prominent systolic murmur that is best heard along the right upper sternal border. ABDOMEN: Soft, nontender, nondistended with normoactive bowel sounds. EXTREMITIES: There is mild edema to the right knee and lower extremity. Distal pulses are palpable. Brisk capillary refill is present. MUSCULOSKELETAL: There is right lower extremity external rotation. Tender to palpation along the right hip. There is decreased range of motion. Range of motion is intact to the left lower extremity and upper extremities. NEURO: She is alert, she is oriented x3. There are no focal deficits. Speech is clear. She follows commands. She is able to make needs known. SKIN: Warm, dry. Limited assessment of the back as I was unable to independently roll the patient with her hip. There is reportedly a type 2 decubitus ulcer to the back as well as a type 1 area to the upper back as well. DIAGNOSTIC STUDIES/LAB DATA: CBC: WBC 9.3, hemoglobin 11.0, hematocrit 34, platelet count 207. CMP: Sodium 143, potassium 4.8, chloride 107, carbon dioxide 25, BUN 36, creatinine 0.91, glucose 90, lactic acid 1.1, calcium 9.3, magnesium 2.4. Total bilirubin 0.5, AST 58, ALT 29, alk phos 79. Total CK 1043. CRP 152.30. BNP 501. Albumin 3.6. Chest x-ray shows no evidence for active cardiopulmonary disease. EKG reviewed and shows atrial fibrillation and PVCs. Right hip and pelvic x-ray as per above, again with right hip comminuted intertrochanteric fracture with medial displacement of the distal fracture fragment. Old medical records were reviewed. ASSESSMENT AND PLAN: This is an 83-year-old female, who sustained an unfortunate fall and was found to have a right hip fracture. She is currently in atrial fibrillation and is going in and out of rapid ventricular response. She will be admitted as an inpatient to the surgical stay unit. Plan: 1. Right intertrochanteric fracture. The ER has already contacted Dr. Lopez. I have also called the on-call orthopedic service and spoken with DEX Sen, who is aware of the patient. I did notify her that the patient has been off her Pradaxa since Friday morning since her fall, which gives her approximately 3 days of being off anticoagulation. We discussed making her n.p.o. after midnight and she will be seen in the morning. I have requested a Cardiology consult given the patient's extensive cardiac history as well as her moderate aortic stenosis and cardiomyopathy. Ideally, we would like to get her to surgery as soon as possible given that she has been with the fracture already for 3 days. In terms of preoperative clearance, again, Ms. Velasquez has been off of her Pradaxa secondary to her situation with her last dose being taken on Friday, , in the morning prior to her fall. She does not carry any history of diabetes. She does have a history of congestive heart failure and with this history, her RCRI score is 1, which gives her a 6% 30-day risk of , myocardial infarction, or cardiac arrest per the RCRI stratification. Her functional METs is about 4, possibly slightly over 4 with moderate functional capacity as she does live independently, is able to do her own grocery shopping. She states that she can climb flight of stairs with rest and can walk on level ground for significant amount of time. She does provide her own self-care and light housework. Again, she has been off her Pradaxa. She is not on aspirin or any other significant medications that would need to be held prior to surgery. We have asked for Cardiology consult as part of her preoperative clearance and should they recommend proceeding with surgery, she would be medically optimized to proceed tomorrow at this point. Her atrial fibrillation is currently rate controlled and we will restart her on her amiodarone and metoprolol in order to keep her rate controlled. 2. Atrial fibrillation. Again, she has paroxysmal atrial fibrillation, status post cardiac ablation, now back in atrial fibrillation. Rate is currently controlled and we will continue to work on pain management to help prevent any recurrences of rapid ventricular response. Continue her on her amiodarone and metoprolol with hold parameters. 3. History of chronic combined systolic and diastolic heart failure. She does not appear to be in acute exacerbation. She is typically on diuretics, but given her recent injury and time down without access to food and drink, we will hold her diuretics to avoid any continued stress on the kidneys at this time. These will be resumed when appropriate. We will order daily weights. She did have an echo within the past year. Unfortunately, we are unable to get an echo in time today and the earliest available echo time will be on Friday. We will defer to Cardiology if they feel that an echo is needed prior to surgery. 4. Elevated total CK, likely secondary to her time down on the floor these past few days. Surprisingly, it is not significantly elevated. We will continue with gentle hydration x1 additional bag with careful attention to fluid status. We will recheck her CK tomorrow, continue hydration as needed and indicated. 5. History of obstructive sleep apnea. We will offer hospital CPAP. 6. Essential tremor. Continue primidone and gabapentin as well as her p.r.n. clonazepam if needed. 7. FEN: She is ordered a heart-healthy diet. We will make her n.p.o. after midnight. 8. DVT prophylaxis: Pradaxa is held. We will give her 1 dose of subcu heparin tonight and hold further doses in anticipation of potential surgery tomorrow. 9. Code status: She is a full code. She does not have any advance directives. She wishes to discuss this with her PCP. 10. Disposition: Anticipate rehabilitation needs. She would be a good candidate for PMRU. TIME SPENT: Approximately 65 minutes was spent on this admission with more than half that time spent [id number] with the patient obtaining history and physical, performing physical examination, and reviewing the plan of care. Plan of care was also reviewed with my attending, Dr. Fredi Mccormack, who is in agreement. APRIL JONAS NP [id number]/CPS #: [id number] ISABEL
[2018-11-13] MEDS: Amiodarone TAB* 200 MG PO SCH (22:09)
[2018-11-13] MEDS: Calcium/Vitamin D TAB 250/125* TAB PO SCH (22:10)
[2018-11-13] MEDS: Acetaminophen TAB* 325 MG PO PRN (22:12)
[2018-11-13] MEDS: Gabapentin CAP(*) 300 MG PO SCH (22:14)
[2018-11-13] MEDS: Metoprolol Succinate XL TAB* 50 MG PO SCH (22:15)
[2018-11-13] MEDS: Topiramate TAB(*) 25 MG PO SCH (22:16)
[2018-11-13] MEDS: Primidone TAB(*) 50 MG PO SCH (22:18)
[2018-11-14] MEDS ORDERED: Digoxin TAB* 0.25 MG PO ONE (01:01)
[2018-11-14] MEDS ORDERED: NS 0.9% 500 ML* 500 ML IV ONE (04:00)
[2018-11-14 05:21] LABS: ABS Eosinophils 0.1 10^3/ul (0-0.6); ABS Lymphocytes 1.4 10^3/ul (1.0-4.8); ABS Monocytes 0.7 10^3/ul (0-0.8); ABS Neutrophils 4.7 10^3/ul (1.5-7.7); Eosinophil % 1.3 %; Hematocrit 30 % (35-47); Hemoglobin 9.7 g/dL (12.0-16.0); Lymphocyte % 20.7 %; Mean Corpuscular HGB Conc 33 g/dL (31-36); Mean Corpuscular Hemoglobin 32 pg (27-31); Mean Corpuscular Volume 98 fL (80-97); Mean Platelet Volume 7.7 fL (7.4-10.4); Platelet Count 175 10^3/uL (150-450); Red Blood Count 3.02 10^6 /uL (3.70-4.87); Red Cell Distribution Width 15 % (10-15); White Blood Count 6.9 10^3/uL (3.5-10.8)
[2018-11-14 05:35] LABS: BUN/Creatinine Ratio 36.6 (8-20); Calcium 8.4 mg/dL (8.6-10.3); EGFR African American 80.2 (>60); EGFR Non-African American 66.3 (>60); Potassium 4.4 mmol/L (3.5-5.0)
[2018-11-14 05:41] LABS: CKMB ng/mL 17.2 ng/mL (0.6-6.3)
[2018-11-14] MEDS: Acetaminophen TAB* 325 MG PO PRN (06:48)
--- NOTE | 2018-11-14 08:31 | PN ---
Progress Note - Progress Note Date of Service: 11/14/18 SOAP: Subjective: resting comfortably, pain well controlled, A & 0, denies any CP/SOB Objective: Vital Signs Temp Pulse Resp BP Pulse Ox 97.6 F 60 16 100/56 93 11/14/18 03:00 11/14/18 03:00 11/14/18 03:00 11/14/18 03:00 11/14/18 03:00 Laboratory Last Values WBC 6.9 10^3/uL (3.5-10.8) 11/14/18 05:08 RBC 3.02 10^6 /uL (3.70-4.87) L 11/14/18 05:08 Hgb 9.7 g/dL (12.0-16.0) L 11/14/18 05:08 Hct 30 % (35-47) L 11/14/18 05:08 MCV 98 fL (80-97) H 11/14/18 05:08 MCH 32 pg (27-31) H 11/14/18 05:08 MCHC 33 g/dL (31-36) 11/14/18 05:08 RDW 15 % (10-15) 11/14/18 05:08 Plt Count 175 10^3/uL (150-450) 11/14/18 05:08 MPV 7.7 fL (7.4-10.4) 11/14/18 05:08 Neut % (Auto) 67.6 % 11/14/18 05:08 Lymph % (Auto) 20.7 % 11/14/18 05:08 Wagoner % (Auto) 9.9 % 11/14/18 05:08 Eos % (Auto) 1.3 % 11/14/18 05:08 Baso % (Auto) 0.5 % 11/14/18 05:08 Absolute Neuts (auto) 4.7 10^3/ul (1.5-7.7) 11/14/18 05:08 Absolute Lymphs (auto) 1.4 10^3/ul (1.0-4.8) 11/14/18 05:08 Absolute Monos (auto) 0.7 10^3/ul (0-0.8) 11/14/18 05:08 Absolute Eos (auto) 0.1 10^3/ul (0-0.6) 11/14/18 05:08 Absolute Basos (auto) 0.0 10^3/ul (0-0.2) 11/14/18 05:08 Absolute Nucleated RBC 0.0 10^3/ul 11/14/18 05:08 Nucleated RBC % 0.0 11/14/18 05:08 INR (Anticoag Therapy) 1.11 (0.82-1.09) H 11/13/18 15:30 Sodium 141 mmol/L (135-145) 11/14/18 05:08 Potassium 4.4 mmol/L (3.5-5.0) 11/14/18 05:08 Chloride 110 mmol/L (101-111) 11/14/18 05:08 Carbon Dioxide 27 mmol/L (22-32) 11/14/18 05:08 Anion Gap 4 mmol/L (2-11) 11/14/18 05:08 BUN 30 mg/dL (6-24) H 11/14/18 05:08 Creatinine 0.82 mg/dL (0.51-0.95) 11/14/18 05:08 Est GFR ( Amer) 80.2 (>60) 11/14/18 05:08 Est GFR (Non-Af Amer) 66.3 (>60) 11/14/18 05:08 BUN/Creatinine Ratio 36.6 (8-20) H 11/14/18 05:08 Glucose 95 mg/dL (70-100) 11/14/18 05:08 Lactic Acid 1.1 mmol/L (0.5-2.0) 11/13/18 15:31 Calcium 8.4 mg/dL (8.6-10.3) L 11/14/18 05:08 Magnesium 2.4 mg/dL (1.9-2.7) 11/13/18 15:30 Total Bilirubin 0.50 mg/dL (0.2-1.0) 11/13/18 15:30 AST 58 U/L (13-39) H 11/13/18 15:30 ALT 29 U/L (7-52) 11/13/18 15:30 Alkaline Phosphatase 79 U/L (34-104) 11/13/18 15:30 Total Creatine Kinase 1043 U/L (10-223) H 11/13/18 15:30 CK-MB (CK-2) 17.2 ng/mL (0.6-6.3) H 11/14/18 05:08 C-Reactive Protein 152.30 mg/L (<8.01) H 11/13/18 15:30 B-Natriuretic Peptide 501 pg/mL (<=100) H 11/13/18 15:31 Total Protein 7.1 g/dL (6.4-8.9) 11/13/18 15:30 Albumin 3.6 g/dL (3.2-5.2) 11/13/18 15:30 Globulin 3.5 g/dL (2-4) 11/13/18 15:30 Albumin/Globulin Ratio 1.0 (1-3) 11/13/18 15:30 Lipase 19 U/L (11.0-82.0) 11/13/18 15:30 Urine Color Taryn 11/13/18 15:30 Urine Appearance Cloudy 11/13/18 15:30 Urine pH 5.0 (5-9) 11/13/18 15:30 Ur Specific Malone 1.027 (1.010-1.030) 11/13/18 15:30 Urine Protein 1+(30 mg/dl) (Negative) A 11/13/18 15:30 Urine Ketones 1+ (Negative) A 11/13/18 15:30 Urine Blood Negative (Negative) 11/13/18 15:30 Urine Nitrate Negative (Negative) 11/13/18 15:30 Urine Bilirubin Negative (Negative) 11/13/18 15:30 Urine Urobilinogen Negative (Negative) 11/13/18 15:30 Ur Leukocyte Esterase Negative (Negative) 11/13/18 15:30 Urine WBC (Auto) Absent (Absent) 11/13/18 15:30 Urine RBC (Auto) Absent (Absent) 11/13/18 15:30 Ur Squamous Epith Cells Present (Absent) A 11/13/18 15:30 Urine Bacteria Absent (Absent) 11/13/18 15:30 Urine Glucose Negative (Negative) 11/13/18 15:30 Urine Ascorbic Acid * (Negative) A 11/13/18 15:30 PE: 2+ DP pulse, intact sensation, able to dorsi flex/plantar flex; NVI Assessment: right hip fx s/p fall Abi Plan: 1) NWB RLE 2) SubQ heparin given last night, will hold today for possible sx 3) NPO- awaiting cardiac clearance; hopefully OR today if cleared 4) Hospitalist co-managing
--- NOTE | 2018-11-14 09:25 | PN ---
Subjective Date of Service: 11/14/18 Interval History: Pain control OK. No new c/o. Objective Active Medications: Acetaminophen (Tylenol Tab*) 650 mg PO Q4H PRN PRN Reason: FEVER/PAIN Last Admin: 11/14/18 06:48 Dose: 650 mg Amiodarone HCl (Cordarone Tab*) 100 mg PO DAILY [facility] Last Admin: 11/13/18 22:09 Dose: 100 mg Calcium/Vitamin D (Oscal D Tab 250/125*) 2 tab PO BID [facility] Last Admin: 11/13/18 22:10 Dose: 2 tab Clonazepam (Klonopin Tab(*)) 0.125 mg PO BID PRN PRN Reason: TREMORS Cyanocobalamin (Vitamin B12 Tab*) 500 mcg PO QAM [facility] Docusate Sodium (Colace Cap*) 100 mg PO BID PRN PRN Reason: CONSTIPATION Ferrous Gluconate (Fergon Tab*) 324 mg PO DAILY [facility] Fluticasone Propionate (Flonase Nasal Spring 50mcg*) 1 spray BOTH NARES DAILY [facility] Gabapentin (Neurontin Cap(*)) 300 mg PO QAM [facility] Gabapentin (Neurontin Cap(*)) 600 mg PO BEDTIME [facility] Last Admin: 11/13/18 22:14 Dose: 600 mg Magnesium Hydroxide (Milk Of Magnesia Liq*) 30 ml PO Q6H PRN PRN Reason: CONSTIPATION Metoprolol Succinate (Toprol Xl Tab*) 50 mg PO QPM [facility] Last Admin: 11/13/18 22:15 Dose: 50 mg Mometasone Furoate (Asmanex 220 Mcg Mdi *) 1 puff INH QPM PRN PRN Reason: WHEEZING Morphine Sulfate (Morphine Inj (Syringe))*) 2 mg IV Q4H PRN PRN Reason: PAIN - BREAKTHROUGH Ondansetron HCl (Zofran Inj*) 4 mg IV Q6H PRN PRN Reason: NAUSEA/VOMITING Oxycodone/Acetaminophen (Percocet 5/325 Tab*) 1 tab PO Q4H PRN PRN Reason: Pain Primidone (Mysoline Tab(*)) 150 mg PO BID [facility] Last Admin: 11/13/18 22:18 Dose: 150 mg Senna (Senokot Tab*) 2 tab PO BEDTIME PRN PRN Reason: CONSTIPATION Topiramate (Topamax(*)) 50 mg PO BID [facility] Last Admin: 11/13/18 22:16 Dose: 50 mg Tramadol HCl (Ultram*) 50 mg PO Q6H PRN PRN Reason: PAIN Vital Signs - 8 hr 11/14/18 11/14/18 03:00 08:47 Temperature 97.6 F 98.3 F Pulse Rate 60 80 Respiratory 16 16 Rate Blood Pressure 100/56 98/50 (mmHg) O2 Sat by Pulse 93 98 Oximetry Oxygen Devices in Use Now: None Appearance: Alert, supin in bed. In good spirits. Looks comfortable. Eyes: No Scleral Icterus Ears/Nose/Mouth/Throat: Clear Oropharnyx Respiratory: Symmetrical Chest Expansion and Respiratory Effort, Clear to Auscultation, Clear to Percussion Cardiovascular: No Edema, - - 2/6 systolic murmur RSB. Irreg. Extremities: No Edema, No Clubbing, Cyanosis, - - R leg shortened and everted. Skin: No Rash or Ulcers, No Nodules or Sclerosis, - Neurological: Alert and Oriented x 3, NL Sensation Result Diagrams: 11/14/18 05:08 11/14/18 05:08 Assess/Plan/Problems-Billing Assessment: - Patient Problems (1) Closed right hip fracture Current Visit: Yes Status: Acute Code(s): S72.001A - FRACTURE OF UNSP PART OF NECK OF RIGHT FEMUR, INIT SNOMED Code(s): 378071255 Comment: Plan for ORIF 11/[address] Driscoll. Discussed with Dr. Driscoll. Note patient's last dose of dabigatran was AM 11/10. (2) Atrial fibrillation Current Visit: Yes Status: Acute Code(s): I48.91 - UNSPECIFIED ATRIAL FIBRILLATION SNOMED Code(s): 14731003 Comment: Chronic. Received her usual dose metoprolol XL 7 PM, will get home dose amiodarone AM 11/14. (3) Aortic stenosis Current Visit: Yes Status: Acute Code(s): I35.0 - NONRHEUMATIC AORTIC (VALVE ) STENOSIS SNOMED Code(s): 43621443 Comment: She was dizzy just before she fell, could be related to . Dr. Driscoll to consult 11/14. Hx CHF, on furosemide. Clinically compensated 11/14. (4) Essential tremor Current Visit: Yes Status: Acute Code(s): G25.0 - ESSENTIAL TREMOR SNOMED Code(s): 598163000 Comment: This is the indication for her topiramate and primidone. (5) Rhabdomyolysis Current Visit: Yes Status: Acute Code(s): M62.82 - RHABDOMYOLYSIS SNOMED Code(s): 694860326 Comment: CK 1043 11/13, add on 11/14 pending.
--- NOTE | 2018-11-14 09:47 | PN ---
Progress Note - Progress Note Date of Service: 11/14/18 Note: She has a reverse obliquity peritrochanteric hip fracture on the right. The plan will be for surgery to stabilize the fracture with a long gamma nail. We are pending cardiology evaluation.
[2018-11-14] MEDS: Ferrous Gluconate TAB* 324 MG TAB PO SCH (09:51)
[2018-11-14] MEDS: Fluticasone NASAL SPRAY 50MCG* 16 gm SPRAY BTL BOTH NARES SCH (09:51)
[2018-11-14] MEDS: Cyanocobalamin TAB* 500 MCG PO SCH (09:51)
[2018-11-14] MEDS: Calcium/Vitamin D TAB 250/125* TAB PO SCH ×2 (09:51→20:47)
[2018-11-14] MEDS: Gabapentin CAP(*) 300 MG PO SCH ×2 (09:52→20:48)
[2018-11-14] MEDS: Primidone TAB(*) 50 MG PO SCH ×2 (09:54→20:48)
[2018-11-14] MEDS: Topiramate TAB(*) 25 MG PO SCH ×2 (09:54→20:47)
[2018-11-14] MEDS: Amiodarone TAB* 200 MG PO SCH (09:55)
--- NOTE | 2018-11-14 10:50 | CONS ---
CONSULTATION REPORT: DATE OF CONSULT: 11/14/18 CHIEF COMPLAINT: Right hip fracture. HISTORY OF PRESENT ILLNESS: Ms. Velasquez is 83 years old. She had a fall that occurred on Friday, 3 days prior to admission. She said she turned too quickly , got dizzy, lost her balance and fell, landed on the right hip. She was eventually brought to the ER, where she was admitted overnight on Friday night. She was rehydrated. Cardiology was consulted yesterday. It sounds like she had a cardioversion back in last February that she had some paroxysmal atrial fibrillation since then. PAST MEDICAL HISTORY: Paroxysmal atrial fibrillation, obstructive sleep apnea, chronic systolic and diastolic heart failure, hypertension, history of left bundle branch block, moderate aortic stenosis, dyslipidemia, essential tremor, and AVM of the colon. PAST SURGICAL HISTORY: Recent cardiac ablation, left breast biopsy in 1988, left wrist plate in 2011, partial thyroidectomy, cataract surgery in both eyes. MEDICATIONS: Home medications and current medications were reviewed. ALLERGIES: LISINOPRIL and SULFA. FAMILY HISTORY: Noncontributory. SOCIAL HISTORY: She is a former smoker. She quit in 1997. She reports rare alcohol use. She live alone with 2 cats. Per the notes, she has 2 friends, which she names as her healthcare proxy. REVIEW OF SYSTEMS: As above. PHYSICAL EXAM: General: Awake and alert. Vital signs are stable. Most recent show a temperature of 98.3, heart rate of 80, respiratory rate of 16, satting 98%, blood pressure 98/50. Skin: Intact. There are no openings in the system. Musculoskeletal: The right lower extremity is shortened and little bit externally rotated. She is able to wiggle the toes. Foot is warm and well perfused. DIAGNOSTIC STUDIES/LAB DATA: X-rays of the right hip showed a reverse obliquity right peritrochanteric hip fracture. I have ordered a femur x-ray. Most recent white count was 6.9, platelet count was 175, H and H 9.7 and 30. Chemistries show a creatinine of 0.82. IMPRESSION: Right reverse obliquity peritrochanteric hip fracture. PLAN: This will need reduction and stabilization. We are awaiting cardiology clearance by Dr. Driscoll. He is going to reach out to me once he has done that this morning. The surgical plan will be for close versus open reduction and stabilization of the right hip fracture with a long Gamma nail. [id number]/[facility] #: [id number] MTDD
[2018-11-14] MEDS ORDERED: Bupivacaine 0.5% W/EPI SDV* 30 ML VIAL ONE (11:17)
[2018-11-14] MEDS ORDERED: Bupivacaine 0.25% SDV PF* 10 ML VIAL INJ ONE (11:18)
[2018-11-14] MEDS ORDERED: fentaNYL* 50 MCG/ML 2 ML VIAL (100 MCG VIAL) ONE ×2 (11:28→15:12)
[2018-11-14] MEDS ORDERED: KETAMINE HCL* 50 MG/ML 10 ML VIAL ONE ×2 (11:28→15:10)
[2018-11-14] MEDS ORDERED: Midazolam* 1 MG/ML 2 ML VIAL (2 MG) ONE ×2 (11:28→15:12)
[2018-11-14] MEDS ORDERED: ceFAZolin 2 GM in NS PREMIX(*) 2 GM/100 ML BAG IVPB ONE (11:33)
[2018-11-14] MEDS ORDERED: Acetaminophen IV 1GM/100ML * 1,000 MG/100 ML VIAL IVPB ONE (11:50)
[2018-11-14] MEDS ORDERED: Naloxone* 0.4 MG/ML 1 ML VIAL IV PRN (11:50)
[2018-11-14] MEDS ORDERED: DiMENhydriNATE IV* 50 MG/ML VIAL IV PUSH PRN (11:50)
[2018-11-14] MEDS ORDERED: oxyCODONE TAB* 5 MG TAB PO PRN (11:50)
[2018-11-14] MEDS ORDERED: HYDROmorphone INJ1* 1 MG/ML SYRINGE IV PRN (11:50)
--- NOTE | 2018-11-14 11:54 | CONS ---
CC: Dr. Carmen Winter; Dr. Marsha Prado; [facility] Orthopedics CARDIOLOGY CONSULTATION: DATE OF CONSULT: 11/14/18 INDICATION FOR CONSULTATION: Atrial fibrillation, hip fracture. HISTORY OF PRESENT ILLNESS: The patient is an 83-year-old female with a history of persistent atrial fibrillation, moderate aortic stenosis, mild to moderate pulmonary hypertension, who sustained a hip fracture at home. The patient underwent an ablation for her atrial fibrillation back in November 2017. The patient noted that she was back in atrial fibrillation about a week ago. She continued to take all of her medications. The patient was at home. She turned quickly after picking up a water dish f or her cat and fell forwards and sustained a right hip fracture. The patient was unable to get to th e phone and was on the floor for 3 days until she was found by EMS. The patient did not take any of her medications during those 3 days. On arrival to the emergency room, the patient was awake, alert and oriented. She denied any chest pain. She noted that she was in atrial fibrillation. Her labora tory studies were essentially unremarkable except for an elevated CPK of 1000, but an MB of 17, which is not consistent with myocardial infarction. Her BNP was elevated at 501. In speaking with the patient, she was actually doing quite well at home before she went into atrial f ibrillation, she had no complaints. She denied any chest pain. She denied any shortness of breath. She denied any lightheadedness, dizziness, or syncope. Again, the patient did go into atrial fibrill ation. She was aware of that. She did not contact any of her physicians. She stated she felt a lit tle bit lightheadedness. She had low blood pressure at home, but otherwise continued to feel well un til her fall and her hip fracture. PAST MEDICAL HISTORY: Significant for persistent atrial fibrillation, mild cardiomyopathy, moderate aortic stenosis, left bundle branch block, anemia. PAST SURGICAL HISTORY: Left wrist surgery, partial thyroidectomy, cataract surgery, breast biopsy in 1988. She had a cardiac catheterization in 2001, which showed normal coronary arteries. She had a cardiac AFib ablation in 2017. OUTPATIENT MEDICATIONS: 1. Pradaxa 150 mg b.i.d. 2. Flovent inhaler. 3. Calcium tablets. 4. CPAP at night. 5. Loratadine 10 mg a day. 6. Amiodarone 100 mg a day. 7. Iron tablets 1 tablet a day. 8. Nasacort nasal inhaler. 9. Potassium 10 mEq a day. 10. Metoprolol succinate 50 mg a day. 11. Lasix 40 mg a day. 12. Spironolactone 25 mg a day. 13. Clonazepam 0.125 mg as needed. 14. Topamax 50 mg twice a day. 15. Gabapentin 300 mg as directed. 16. Primidone 150 mg 3 times a day. ALLERGIES: She is intolerant of ZESTRIL. FAMILY HISTORY: Father had Alzheimer's disease. Mother had a stroke and of a stroke at 84. SOCIAL HISTORY: She lives alone. She denies tobacco or alcohol use. She is retired. She has frien ds that help her with her care. REVIEW OF SYSTEMS: Negative for fevers and chills. Negative for changes in bowel or bladder habits. Negative for changes in weight. All of these before her fall at home. Other 12-point review is un remarkable. PHYSICAL EXAM: On physical exam, height is 5 feet 4 inches, weight 127 pounds, temperature 98.3, hea rt rate is 80, blood pressure 98/50, respiratory rate is 16, oxygen saturation 98% on room air. The patient is lying flat because of her hip fracture. The patient is awake, alert and oriented. Sclera e anicteric. Oropharynx is pink without erythema. Carotids are 2+ with soft bilateral bruits. JVD is normal. Thyroid: She has a thyroid scar. Cardiac Exam: Irregular, S1, S2 with 2/6 systolic eject ion murmur heard best at right upper sternal border. PMI is normal. Lungs are clear to auscultation anteriorly. I cannot auscultate posteriorly as she has hip fracture and is on bedrest. Abdomen is soft, nontender, nondistended with normoactive bowel sounds. Extremities: She has no edema. She rubin s 2+ pulses in her dorsalis pedis bilaterally. Her right foot is rotated externally. DIAGNOSTIC STUDIES/LAB DATA: Laboratory studies: Chemistries within normal limits. BUN 30, creatin ine 0.8. AST and ALT are normal. CBC is normal except for a hemoglobin of 9.7 and hematocrit of 30. EKG shows atrial fibrillation with a left bundle branch block. The patient had an echocardiogram in February 2018 which showed mild LV dysfunction, ejection fraction of 45% to 50%. She had septal asynchrony secondary to her left bundle branch block. She had moder ate aortic stenosis with a mean gradient of 26 mmHg, estimated PA systolic pressure of 45 mmHg. IMPRESSION: This is an 83-year-old female with a history of persistent atrial fibrillation, moderate aortic stenosis, mild LV dysfunction, who had a fall at home and has now sustained a hip fracture. On exam, the patient is not in congestive heart failure. The patient is awake, alert and oriented. Laboratory studies are stable. At this point , I think the patient is medically stable for the operating room to do repair of her hi p fracture. This has been conveyed to Orthopedics. The patient's heart rate should remain at contr ol with beta blockers. If further heart rate control is needed and blood pressure is low, I would co nsider digoxin. At this point , the patient is not a candidate for cardioversion as she has been off her anticoagulat ion for more than 3 days. The patient would require transesophageal echocardiogram and then cardiove rsion. I do not think this is necessary prior to going to the operating room. This could be pursued at the end of the patient's hospitalization. The patient should return to full anticoagulation once her surgery is complete and her bleeding is under control. [id number]/[facility] #: [id number]
[2018-11-14] MEDS ORDERED: Ondansetron INJ* 2 MG/ML VIAL ONE (14:07)
[2018-11-14] MEDS ORDERED: Phenylephrine 40 MCG/ML SYRINGE ONE (14:07)
[2018-11-14] MEDS ORDERED: Propofol* 10 MG/ML 20 ML BTL ONE ×2 (14:07→15:11)
[2018-11-14] MEDS ORDERED: Ketorolac INJ* 30 MG/ML 1 ML VIAL ONE (14:07)
[2018-11-14] MEDS ORDERED: Lidocaine 2% PF * 5 ML VIAL ONE ×2 (14:07→15:11)
[2018-11-14] MEDS ORDERED: DiMENhydriNATE IV* 50 MG/ML VIAL ONE (14:07)
[2018-11-14] MEDS ORDERED: Dexamethasone IV* 4 MG/ML 1 ML (4 MG) ONE (14:07)
[2018-11-14] MEDS ORDERED: ceFAZolin VIAL(*) VIAL ONE (15:56)
--- NOTE | 2018-11-14 16:24 | OP ---
DATE OF OPERATION: 11/14/18 1109 - ROOM #33 DATE OF : 31 SURGEON: Antony Lopez MD. ONLINE COMMUNITY MANAGER: DEX Sen. ANESTHESIOLOGIST: Dr. Sorto. ANESTHESIA: General. PRE-OP DIAGNOSIS: Right reverse obliquity subtrochanteric hip fracture. POST-OP DIAGNOSIS: Right reverse obliquity subtrochanteric hip fracture. OPERATIVE PROCEDURE: Closed reduction and cephalomedullary fixation with long gamma nail right hip reverse obliquity peritrochanteric hip fracture. INDICATION: Rosalina is 83. She has a right hip fracture. She received fluid resuscitation and had a preoperative cardiac evaluation, was deemed as optimized as possible for surgery. Certainly, she has some cardiac history and has some cardiac risk, but now was brought to the operating room for stabilization of her hip fracture. ESTIMATED BLOOD LOSS: 50 mL. COMPLICATIONS: None. FINDINGS: See above and below. DESCRIPTION OF PROCEDURE: Rosalina was seen in the preoperative holding area. The correct site, side, and procedure were identified. We came back to the operating room where she was positioned supine on the fracture table. Once we had the leg appropriately secured in the traction boot and the left leg in the well-leg solorzano, we went ahead and brought in the C-arm and confirmed our alignment on the AP and lateral views. Everything was looking good on the lateral view. She was in varus on the AP view. I thought we had pretty good alignment and it was prepared for a ball spike pusher after we went ahead and got it prepped and draped. After we prepped and draped and placed the shower curtain drape, we went ahead and had a time-out. I then placed the Guero drill bit secured to a T-handle jennifer on that lateral spike of the proximal fragment. I was able to correct the varus with this. I got an x-ray to confirm that. I then went ahead and made a 5-cm incision proximal to the greater trochanter. The guidewire was placed just on the medial aspect of the tip of the greater trochanter. Once I had confirmed that on AP and lateral views, I advanced it down to the lesser trochanter. I then overdrilled with a proximal reamer. The long guidewire was placed. We confirmed the position and measured, and I selected an 11 x 360 mm x 125 degree long gamma nail. This was then advanced down over the guidewire into the appropriate location. Once I had it down, I went ahead and used my triple-barrel guide to guide my incision for the lag screw. Incision was made. The tensor fascia caro was split. The guide was advanced down to the bone. I went ahead and drilled up into the center-center position. I was just a little posterior off of center on my lateral view, but this was where the better bone was at, so I decided to take it as opposed to make another hole in the cancellous bone in the femoral head. Once I had the guidewire where I wanted it, I went ahead and measured and then drilled and selected a 90-mm lag screw. This was advanced up in standard fashion. After I had this in the appropriate position, I went ahead and placed my set screw proximally to lock everything into place. I used the distal locking guide and we went ahead and secured that onto the guide in standard fashion. We got the 30-degree lateral as indicated. I went ahead and placed 2 distal cross-locks in the static position. The more proximal was a 42.5 mm screw, the distal was a 47.5 mm screw. The final placement of the gamma nail was confirmed on final fluoroscopic imaging. Everything was looking good. We irrigated out all the wounds. Proximally, the subcutaneous tissue and the deep fascia were reapproximated with 2-0 Vicryl suture. The skin was closed with efrain. 0.5% Marcaine with epinephrine was infiltrated all around the operative wounds. The wounds were dressed with Xeroform, 4x4s. and then foam tape. She was then woken up and taken to the recovery room in stable condition. [id number]/[facility] #: [id number] ISABEL
[2018-11-14] MEDS ORDERED: Acetaminophen TAB* 325 MG PO ONE (17:01)
[2018-11-14] MEDS: Metoprolol Succinate XL TAB* 50 MG PO SCH (18:12)
--- NOTE | 2018-11-14 18:59 | OP ---
DATE OF OPERATION: 11/14/18 1505 - ROOM #335 DATE OF : 31 SURGEON: Antony Lopez MD ANESTHESIOLOGIST: Dr. Sorto ANESTHESIA: General PRE-OP DIAGNOSIS: POST-OP DIAGNOSIS: OPERATIVE PROCEDURE: ADDENDUM: This is an addendum to the prior dictated operative note for this date. INDICATION: Upon examination of Rosalina in the PACU, I noted that Rosalina' s right leg was about 1 inch longer than the left leg. I discussed this with her healthcare proxy. I thought that I simply must have put the nail in a little over- distracted. I went ahead and discussed this with the healthcare proxy and we decided to take her back so that I could remove the distal Crosslock screws, try to get the bone back to the correct length, and then replace one of the distal Crosslock screws. DESCRIPTION OF PROCEDURE: We, therefore, brought her back where I started with all new clean instruments and the leg was prepped and draped with Betadine in a typical fashion and a time-out was performed. She was positioned again on the fracture table with the left leg in the well-leg solorzano. I removed the efrain and then I removed the two distal crosslocks. I was then able to release all of the traction on the fracture table and I did go ahead and un-scrub and manually shorten the leg, I felt a nice clunk. I then got some fluoroscopic images of both the hip and the knee and I could see where the prior drill holes were now seen about three-quarters of an inch or an inch proximal to where they had been before. I went ahead then and rescrubbed and then in standard perfect diomede fashion, I placed one distal crosslock screw in the dynamic hole position. This was a 45 mm screw. It was a new screw. At this point, I thought everything was looking good on the fluoroscopic imaging. I irrigated out the wound. I closed the subcutaneous tissue and tensor with 2- 0 Vicryl suture. The skin was closed with efrain. A little bit more 0.25% plain Marcaine was infiltrated and the wound was dressed with Xeroform, 4x4s, and foam tape. She was then taken out of the fracture table and I compared her leg lengths and they looked perfect. We, therefore, took her to the recovery room in stable condition. [id number]/[facility] #: [id number] [facility]PITALRoderick
[2018-11-14] MEDS: ceFAZolin 1 GM* X 3 DOSES POST-OP Q8H (AddVan) IVPB SCH ×2 (20:49)
[2018-11-15] MEDS: ceFAZolin 1 GM* X 3 DOSES POST-OP Q8H (AddVan) IVPB SCH ×4 (04:50→13:50)
[2018-11-15] MEDS: Acetaminophen TAB* 325 MG PO PRN ×2 (07:50→14:13)
[2018-11-15] MEDS: Ferrous Gluconate TAB* 324 MG TAB PO SCH (09:16)
[2018-11-15] MEDS: Fluticasone NASAL SPRAY 50MCG* 16 gm SPRAY BTL BOTH NARES SCH (09:16)
[2018-11-15] MEDS: Gabapentin CAP(*) 300 MG PO SCH ×2 (09:16→20:42)
[2018-11-15] MEDS: Docusate CAP* 100 MG PO PRN (09:18)
[2018-11-15] MEDS: Calcium/Vitamin D TAB 250/125* TAB PO SCH ×2 (09:18→20:42)
[2018-11-15] MEDS: Primidone TAB(*) 50 MG PO SCH ×2 (09:18→20:42)
[2018-11-15] MEDS: Topiramate TAB(*) 25 MG PO SCH ×2 (09:19→20:43)
[2018-11-15] MEDS: Amiodarone TAB* 200 MG PO SCH (09:19)
--- NOTE | 2018-11-15 09:29 | PN ---
Progress Note - Progress Note Date of Service: 11/15/18 SOAP: Subjective: resting comfortably in bed, no CP/SOB Objective: Vital Signs Temp Pulse Resp BP Pulse Ox 98.2 F 126 18 82/42 96 11/15/18 07:46 11/15/18 09:24 11/15/18 07:16 11/15/18 09:24 11/15/18 07:16 Laboratory Last Values WBC 6.9 10^3/uL (3.5-10.8) 11/14/18 05:08 RBC 3.02 10^6 /uL (3.70-4.87) L 11/14/18 05:08 Hgb 9.7 g/dL (12.0-16.0) L 11/14/18 05:08 Hct 30 % (35-47) L 11/14/18 05:08 MCV 98 fL (80-97) H 11/14/18 05:08 MCH 32 pg (27-31) H 11/14/18 05:08 MCHC 33 g/dL (31-36) 11/14/18 05:08 RDW 15 % (10-15) 11/14/18 05:08 Plt Count 175 10^3/uL (150-450) 11/14/18 05:08 MPV 7.7 fL (7.4-10.4) 11/14/18 05:08 Neut % (Auto) 67.6 % 11/14/18 05:08 Lymph % (Auto) 20.7 % 11/14/18 05:08 [place] % (Auto) 9.9 % 11/14/18 05:08 Eos % (Auto) 1.3 % 11/14/18 05:08 Baso % (Auto) 0.5 % 11/14/18 05:08 Absolute Neuts (auto) 4.7 10^3/ul (1.5-7.7) 11/14/18 05:08 Absolute Lymphs (auto) 1.4 10^3/ul (1.0-4.8) 11/14/18 05:08 Absolute Monos (auto) 0.7 10^3/ul (0-0.8) 11/14/18 05:08 Absolute Eos (auto) 0.1 10^3/ul (0-0.6) 11/14/18 05:08 Absolute Basos (auto) 0.0 10^3/ul (0-0.2) 11/14/18 05:08 Absolute Nucleated RBC 0.0 10^3/ul 11/14/18 05:08 Nucleated RBC % 0.0 11/14/18 05:08 INR (Anticoag Therapy) 1.11 (0.82-1.09) H 11/13/18 15:30 Sodium 141 mmol/L (135-145) 11/14/18 05:08 Potassium 4.4 mmol/L (3.5-5.0) 11/14/18 05:08 Chloride 110 mmol/L (101-111) 11/14/18 05:08 Carbon Dioxide 27 mmol/L (22-32) 11/14/18 05:08 Anion Gap 4 mmol/L (2-11) 11/14/18 05:08 BUN 30 mg/dL (6-24) H 11/14/18 05:08 Creatinine 0.82 mg/dL (0.51-0.95) 11/14/18 05:08 Est GFR ( Amer) 80.2 (>60) 11/14/18 05:08 Est GFR (Non-Af Amer) 66.3 (>60) 11/14/18 05:08 BUN/Creatinine Ratio 36.6 (8-20) H 11/14/18 05:08 Glucose 95 mg/dL (70-100) 11/14/18 05:08 Lactic Acid 1.1 mmol/L (0.5-2.0) 11/13/18 15:31 Calcium 8.4 mg/dL (8.6-10.3) L 11/14/18 05:08 Magnesium 2.4 mg/dL (1.9-2.7) 11/13/18 15:30 Total Bilirubin 0.50 mg/dL (0.2-1.0) 11/13/18 15:30 AST 58 U/L (13-39) H 11/13/18 15:30 ALT 29 U/L (7-52) 11/13/18 15:30 Alkaline Phosphatase 79 U/L (34-104) 11/13/18 15:30 Total Creatine Kinase 889 U/L (10-223) H 11/14/18 05:08 CK-MB (CK-2) 17.2 ng/mL (0.6-6.3) H 11/14/18 05:08 C-Reactive Protein 152.30 mg/L (<8.01) H 11/13/18 15:30 B-Natriuretic Peptide 501 pg/mL (<=100) H 11/13/18 15:31 Total Protein 7.1 g/dL (6.4-8.9) 11/13/18 15:30 Albumin 3.6 g/dL (3.2-5.2) 11/13/18 15:30 Globulin 3.5 g/dL (2-4) 11/13/18 15:30 Albumin/Globulin Ratio 1.0 (1-3) 11/13/18 15:30 Lipase 19 U/L (11.0-82.0) 11/13/18 15:30 Urine Color Taryn 11/13/18 15:30 Urine Appearance Cloudy 11/13/18 15:30 Urine pH 5.0 (5-9) 11/13/18 15:30 Ur Specific [place] 1.027 (1.010-1.030) 11/13/18 15:30 Urine Protein 1+(30 mg/dl) (Negative) A 11/13/18 15:30 Urine Ketones 1+ (Negative) A 11/13/18 15:30 Urine Blood Negative (Negative) 11/13/18 15:30 Urine Nitrate Negative (Negative) 11/13/18 15:30 Urine Bilirubin Negative (Negative) 11/13/18 15:30 Urine Urobilinogen Negative (Negative) 11/13/18 15:30 Ur Leukocyte Esterase Negative (Negative) 11/13/18 15:30 Urine WBC (Auto) Absent (Absent) 11/13/18 15:30 Urine RBC (Auto) Absent (Absent) 11/13/18 15:30 Ur Squamous Epith Cells Present (Absent) A 11/13/18 15:30 Ur Transition Epith Cell Cancelled 11/14/18 17:00 Ur Renal Epithelial Cell Cancelled 11/14/18 17:00 Calcium Carbonate Cryst Cancelled 11/14/18 17:00 Calcium Phosphate Cryst Cancelled 11/14/18 17:00 Calcium Oxalate Crystal Cancelled 11/14/18 17:00 Leucine Crystals Cancelled 11/14/18 17:00 Cystine Crystals Cancelled 11/14/18 17:00 Uric Acid Crystals Cancelled 11/14/18 17:00 Triple Phos Crystals Cancelled 11/14/18 17:00 Tyrosine Crystals Cancelled 11/14/18 17:00 Amorphous Crystals Cancelled 11/14/18 17:00 Urine Bacteria Absent (Absent) 11/13/18 15:30 Cellular Casts Cancelled 11/14/18 17:00 Epithelial Casts Cancelled 11/14/18 17:00 Fatty Casts Cancelled 11/14/18 17:00 Hyaline Casts Cancelled 11/14/18 17:00 Granular Casts Cancelled 11/14/18 17:00 Waxy Casts Cancelled 11/14/18 17:00 Broad Casts Cancelled 11/14/18 17:00 RBC Casts Cancelled 11/14/18 17:00 WBC Casts Cancelled 11/14/18 17:00 Urine Trichomonas Cancelled 11/14/18 17:00 Urine Yeast Cancelled 11/14/18 17:00 Urine Sperm Cancelled 11/14/18 17:00 Ur Oval Fat Bodies Cancelled 11/14/18 17:00 Urinalysis Comment Cancelled 11/14/18 17:00 Urine Glucose Negative (Negative) 11/13/18 15:30 Urine Ascorbic Acid * (Negative) A 11/13/18 15:30 Blood Type A Positive 11/14/18 05:08 Antibody Screen Negative 11/14/18 05:08 Crossmatch See Detail 11/14/18 05:08 incision: c/d PE: able to dorsi flex/plantar flex, 2+ DP pulse Assessment: POD#1 ORIF right hip Plan: 1) PT/OT- WBAT 2) hospitalist co-managing 3) Dr. Lopez will defer to medicine/cardio about DVT prophylaxis; patient was on Pradaxa per-op. OK to restart today, if appropriate. 4) will change dressing tomorrow; patient will likely need VANNESA placement.
[2018-11-15] MEDS: Cyanocobalamin TAB* 500 MCG PO SCH (09:31)
--- NOTE | 2018-11-15 10:26 | PN ---
Subjective Date of Service: 11/15/18 Interval History: Pain control adequate. No new c/o. Good appetite. Objective Active Medications: Acetaminophen (Tylenol Tab*) 650 mg PO Q4H PRN PRN Reason: FEVER/PAIN Last Admin: 11/15/18 07:50 Dose: 650 mg Amiodarone HCl (Cordarone Tab*) 100 mg PO DAILY COUNTS INCLUDE 234 BEDS AT THE [facility] Last Admin: 11/15/18 09:19 Dose: 100 mg Calcium/Vitamin D (Oscal D Tab 250/125*) 2 tab PO BID COUNTS INCLUDE 234 BEDS AT THE [facility] Last Admin: 11/15/18 09:18 Dose: 2 tab Clonazepam (Klonopin Tab(*)) 0.125 mg PO BID PRN PRN Reason: TREMORS Cyanocobalamin (Vitamin B12 Tab*) 500 mcg PO QAM COUNTS INCLUDE 234 BEDS AT THE [facility] Last Admin: 11/15/18 09:31 Dose: Not Given Dabigatran (Pradaxa Cap(Nf)) 150 mg PO BID COUNTS INCLUDE 234 BEDS AT THE [facility] Docusate Sodium (Colace Cap*) 100 mg PO BID PRN PRN Reason: CONSTIPATION Last Admin: 11/15/18 09:18 Dose: 100 mg Ferrous Gluconate (Fergon Tab*) 324 mg PO DAILY COUNTS INCLUDE 234 BEDS AT THE [facility] Last Admin: 11/15/18 09:16 Dose: 324 mg Fluticasone Propionate (Flonase Nasal [place] 50mcg*) 1 spray BOTH NARES DAILY COUNTS INCLUDE 234 BEDS AT THE [facility] Last Admin: 11/15/18 09:16 Dose: 1 spray Gabapentin (Neurontin Cap(*)) 300 mg PO QAM COUNTS INCLUDE 234 BEDS AT THE [facility] Last Admin: 11/15/18 09:16 Dose: 300 mg Gabapentin (Neurontin Cap(*)) 600 mg PO BEDTIME COUNTS INCLUDE 234 BEDS AT THE [facility] Last Admin: 11/14/18 20:48 Dose: 600 mg Cefazolin Sodium 1 gm/ Sodium (Chloride) 50 mls @ 200 mls/hr IVPB Q8H COUNTS INCLUDE 234 BEDS AT THE [facility] Stop: 11/15/18 13:14 Last Admin: 11/15/18 04:50 Dose: 200 mls/hr Sodium Chloride (Ns 0.9% 500 Ml*) 500 mls @ 500 mls/hr IV ONCE ONE Stop: 11/15/18 11:59 Last Admin: 11/15/18 09:50 Dose: 500 mls/hr Magnesium Hydroxide (Milk Of Magnesia Liq*) 30 ml PO Q6H PRN PRN Reason: CONSTIPATION Metoprolol Succinate (Toprol Xl Tab*) 50 mg PO QPM COUNTS INCLUDE 234 BEDS AT THE [facility] Last Admin: 11/14/18 18:12 Dose: Not Given Mometasone Furoate (Asmanex 220 Mcg Mdi *) 1 puff INH QPM PRN PRN Reason: WHEEZING Morphine Sulfate (Morphine Inj (Syringe))*) 2 mg IV Q4H PRN PRN Reason: PAIN - BREAKTHROUGH Ondansetron HCl (Zofran Inj*) 4 mg IV Q6H PRN PRN Reason: NAUSEA/VOMITING Oxycodone/Acetaminophen (Percocet 5/325 Tab*) 1 tab PO Q4H PRN PRN Reason: Pain Primidone (Mysoline Tab(*)) 150 mg PO BID COUNTS INCLUDE 234 BEDS AT THE [facility] Last Admin: 11/15/18 09:18 Dose: 150 mg Senna (Senokot Tab*) 2 tab PO BEDTIME PRN PRN Reason: CONSTIPATION Topiramate (Topamax(*)) 50 mg PO BID COUNTS INCLUDE 234 BEDS AT THE [facility] Last Admin: 11/15/18 09:19 Dose: 50 mg Tramadol HCl (Ultram*) 50 mg PO Q6H PRN PRN Reason: PAIN Vital Signs - 8 hr 11/15/18 11/15/18 11/15/18 03:42 07:16 07:46 Temperature 99.0 F 101.5 F 98.2 F Pulse Rate 69 43 86 Respiratory 16 18 Rate Blood Pressure 97/50 99/45 (mmHg) O2 Sat by Pulse 99 96 Oximetry 11/15/18 11/15/18 11/15/18 08:00 09:16 09:24 Temperature Pulse Rate 126 Respiratory 16 16 Rate Blood Pressure 82/42 (mmHg) O2 Sat by Pulse Oximetry Oxygen Devices in Use Now: Nasal Cannula Appearance: Alert, partly up in bed. In good spirits. Looks comfortable. Cardiovascular: No Edema, - - irreg. 1-2/6 systolic murmur across precordium. Extremities: No Edema, No Clubbing, Cyanosis, - Skin: No Rash or Ulcers, No Nodules or Sclerosis, - Neurological: NL Sensation Result Diagrams: 11/14/18 05:08 11/14/18 05:08 Assess/Plan/Problems-Billing Assessment: - Patient Problems (1) Closed right hip fracture Current Visit: Yes Status: Acute Code(s): S72.001A - FRACTURE OF UNSP PART OF NECK OF RIGHT FEMUR, INIT SNOMED Code(s): 227312206 Comment: ORIF 11/14. Somewhat hypotensive and anemic 11/15, 500 ml bolus NS given 11/15. CBC and BMP ordered for 11/16. (2) Atrial fibrillation Current Visit: Yes Status: Acute Code(s): I48.91 - UNSPECIFIED ATRIAL FIBRILLATION SNOMED Code(s): 91015757 Comment: Chronic. Received her usual dose metoprolol XL 11/13 PM, will get home dose amiodarone AM 11/14. Re-start dabigatran AM 11/15. (3) Aortic stenosis Current Visit: Yes Status: Acute Code(s): I35.0 - NONRHEUMATIC AORTIC (VALVE ) STENOSIS SNOMED Code(s): 68219456 Comment: She was dizzy just before she fell, could be related to . Dr. Driscoll to consult 11/14. Hx CHF, on furosemide. Clinically compensated 11/14. (4) Essential tremor Current Visit: Yes Status: Acute Code(s): G25.0 - ESSENTIAL TREMOR SNOMED Code(s): 814899196 Comment: This is the indication for her topiramate and primidone. (5) Rhabdomyolysis Current Visit: Yes Status: Acute Code(s): M62.82 - RHABDOMYOLYSIS SNOMED Code(s): 227179313 Comment: CK 1043 11/13, add on 11/14 pending.
[2018-11-15 10:27] LABS: ABS Lymphocytes 1.2 10^3/ul (1.0-4.8); ABS Monocytes 0.5 10^3/ul (0-0.8); ABS Neutrophils 5.4 10^3/ul (1.5-7.7); Eosinophil % 0.6 %; Hematocrit 30 % (35-47); Lymphocyte % 17.3 %; Mean Corpuscular HGB Conc 33 g/dL (31-36); Mean Corpuscular Hemoglobin 32 pg (27-31); Mean Corpuscular Volume 97 fL (80-97); Mean Platelet Volume 8.3 fL (7.4-10.4); Platelet Count 170 10^3/uL (150-450); Red Blood Count 3.09 10^6 /uL (3.70-4.87); Red Cell Distribution Width 16 % (10-15); White Blood Count 7.2 10^3/uL (3.5-10.8)
[2018-11-15] MEDS ORDERED: NS 0.9% 500 ML* 500 ML IV ONE ×3 (11:00→14:49)
[2018-11-15] MEDS: CMC:Dabigatran CAP(NF) 150 MG CAP PO SCH ×2 (11:37→20:42)
[2018-11-15] MEDS: Metoprolol Succinate XL TAB* 50 MG PO SCH (17:13)
[2018-11-16 05:21] LABS: ABS Eosinophils 0.1 10^3/ul (0-0.6); ABS Lymphocytes 1.3 10^3/ul (1.0-4.8); ABS Monocytes 0.5 10^3/ul (0-0.8); ABS Neutrophils 3.7 10^3/ul (1.5-7.7); Eosinophil % 2.1 %; Hematocrit 29 % (35-47); Hemoglobin 9.7 g/dL (12.0-16.0); Lymphocyte % 23.5 %; Mean Corpuscular HGB Conc 33 g/dL (31-36); Mean Corpuscular Hemoglobin 32 pg (27-31); Mean Corpuscular Volume 97 fL (80-97); Mean Platelet Volume 8.2 fL (7.4-10.4); Nucleated Red Blood Cells % 0.1; Platelet Count 136 10^3/uL (150-450); Red Cell Distribution Width 16 % (10-15); White Blood Count 5.6 10^3/uL (3.5-10.8)
[2018-11-16 05:37] LABS: BUN/Creatinine Ratio 32.4 (8-20); Calcium 8.1 mg/dL (8.6-10.3); EGFR African American 94.7 (>60); EGFR Non-African American 78.2 (>60); Potassium 4.6 mmol/L (3.5-5.0)
[2018-11-16] MEDS: Amiodarone TAB* 200 MG PO SCH (08:32)
[2018-11-16] MEDS: Magnesium Hydroxide LIQ* 30 ML UDC PO PRN (08:34)
--- NOTE | 2018-11-16 08:34 | PN ---
Progress Note - Progress Note Date of Service: 11/16/18 SOAP: Subjective: []Patient seen at bedside today. Her right hip pain is well controlled at rest. Denies any chest pain, shortness of breath, nausea. She is dizzy with change of position. Objective: []Gen: NAD, A&Ox3 RLE: Dressing changed, Incisions CDI, mild bloody discharge on dressings no active bleeding. Thigh is soft, DF/PF intact, DP2+, sensation intact to light touch distally, Calves supple and nontender without erythema, edema or palpable cords Assessment: POD#2 ORIF right hip Plan: 1) PT/OT- WBAT 2) hospitalist co-managing 3) DVT prophy: on pradaxa. Dr. Lopez defers to medicine/cardio about DVT prophylaxis; patient was on Pradaxa per-op. 4) daily dry sterile dressing change 5) VANNESA placement needed 6) OR nurse in room at time of visit, patient signed release of previously implanted screws stating she does not want them Vital Signs Temp 98.3 F 11/16/18 07:24 Pulse 89 11/16/18 07:24 Resp 18 11/16/18 07:24 BP 101/47 11/16/18 07:24 Pulse Ox 93 11/16/18 07:24 Intake & Output 11/15/18 11/16/18 11/16/18 18:59 06:59 18:59 Intake Total 2665 400 Output Total 50 300 Balance 2615 100 Intake: IV Fluids 1530 NS (0.9%) 1530 IVPB 55 ABX - CEFAZOLIN 55 Oral 1080 400 Output: Jasmine 50 300 Other: # Bowel Movements 0 Laboratory Last Values WBC 5.6 10^3/uL (3.5-10.8) 11/16/18 04:50 RBC 3.00 10^6 /uL (3.70-4.87) L 11/16/18 04:50 Hgb 9.7 g/dL (12.0-16.0) L 11/16/18 04:50 Hct 29 % (35-47) L 11/16/18 04:50 MCV 97 fL (80-97) 11/16/18 04:50 MCH 32 pg (27-31) H 11/16/18 04:50 MCHC 33 g/dL (31-36) 11/16/18 04:50 RDW 16 % (10-15) H 11/16/18 04:50 Plt Count 136 10^3/uL (150-450) L 11/16/18 04:50 MPV 8.2 fL (7.4-10.4) 11/16/18 04:50 Neut % (Auto) 65.6 % 11/16/18 04:50 Lymph % (Auto) 23.5 % 11/16/18 04:50 [place] % (Auto) 8.5 % 11/16/18 04:50 Eos % (Auto) 2.1 % 11/16/18 04:50 Baso % (Auto) 0.3 % 11/16/18 04:50 Absolute Neuts (auto) 3.7 10^3/ul (1.5-7.7) 11/16/18 04:50 Absolute Lymphs (auto) 1.3 10^3/ul (1.0-4.8) 11/16/18 04:50 Absolute Monos (auto) 0.5 10^3/ul (0-0.8) 11/16/18 04:50 Absolute Eos (auto) 0.1 10^3/ul (0-0.6) 11/16/18 04:50 Absolute Basos (auto) 0.0 10^3/ul (0-0.2) 11/16/18 04:50 Absolute Nucleated RBC 0.0 10^3/ul 11/16/18 04:50 Nucleated RBC % 0.1 11/16/18 04:50 INR (Anticoag Therapy) 1.11 (0.82-1.09) H 11/13/18 15:30 Sodium 138 mmol/L (135-145) 11/16/18 04:50 Potassium 4.6 mmol/L (3.5-5.0) 11/16/18 04:50 Chloride 109 mmol/L (101-111) 11/16/18 04:50 Carbon Dioxide 27 mmol/L (22-32) 11/16/18 04:50 Anion Gap 2 mmol/L (2-11) 11/16/18 04:50 BUN 23 mg/dL (6-24) 11/16/18 04:50 Creatinine 0.71 mg/dL (0.51-0.95) 11/16/18 04:50 Est GFR ( Amer) 94.7 (>60) 11/16/18 04:50 Est GFR (Non-Af Amer) 78.2 (>60) 11/16/18 04:50 BUN/Creatinine Ratio 32.4 (8-20) H 11/16/18 04:50 Glucose 99 mg/dL (70-100) 11/16/18 04:50 Lactic Acid 1.1 mmol/L (0.5-2.0) 11/13/18 15:31 Calcium 8.1 mg/dL (8.6-10.3) L 11/16/18 04:50 Magnesium 2.4 mg/dL (1.9-2.7) 11/13/18 15:30 Total Bilirubin 0.50 mg/dL (0.2-1.0) 11/13/18 15:30 AST 58 U/L (13-39) H 11/13/18 15:30 ALT 29 U/L (7-52) 11/13/18 15:30 Alkaline Phosphatase 79 U/L (34-104) 11/13/18 15:30 Total Creatine Kinase 889 U/L (10-223) H 11/14/18 05:08 CK-MB (CK-2) 17.2 ng/mL (0.6-6.3) H 11/14/18 05:08 C-Reactive Protein 152.30 mg/L (<8.01) H 11/13/18 15:30 B-Natriuretic Peptide 501 pg/mL (<=100) H 11/13/18 15:31 Total Protein 7.1 g/dL (6.4-8.9) 11/13/18 15:30 Albumin 3.6 g/dL (3.2-5.2) 11/13/18 15:30 Globulin 3.5 g/dL (2-4) 11/13/18 15:30 Albumin/Globulin Ratio 1.0 (1-3) 11/13/18 15:30 Lipase 19 U/L (11.0-82.0) 11/13/18 15:30 Urine Color Taryn 11/13/18 15:30 Urine Appearance Cloudy 11/13/18 15:30 Urine pH 5.0 (5-9) 11/13/18 15:30 Ur Specific [place] 1.027 (1.010-1.030) 11/13/18 15:30 Urine Protein 1+(30 mg/dl) (Negative) A 11/13/18 15:30 Urine Ketones 1+ (Negative) A 11/13/18 15:30 Urine Blood Negative (Negative) 11/13/18 15:30 Urine Nitrate Negative (Negative) 11/13/18 15:30 Urine Bilirubin Negative (Negative) 11/13/18 15:30 Urine Urobilinogen Negative (Negative) 11/13/18 15:30 Ur Leukocyte Esterase Negative (Negative) 11/13/18 15:30 Urine WBC (Auto) Absent (Absent) 11/13/18 15:30 Urine RBC (Auto) Absent (Absent) 11/13/18 15:30 Ur Squamous Epith Cells Present (Absent) A 11/13/18 15:30 Ur Transition Epith Cell Cancelled 11/14/18 17:00 Ur Renal Epithelial Cell Cancelled 11/14/18 17:00 Calcium Carbonate Cryst Cancelled 11/14/18 17:00 Calcium Phosphate Cryst Cancelled 11/14/18 17:00 Calcium Oxalate Crystal Cancelled 11/14/18 17:00 Leucine Crystals Cancelled 11/14/18 17:00 Cystine Crystals Cancelled 11/14/18 17:00 Uric Acid Crystals Cancelled 11/14/18 17:00 Triple Phos Crystals Cancelled 11/14/18 17:00 Tyrosine Crystals Cancelled 11/14/18 17:00 Amorphous Crystals Cancelled 11/14/18 17:00 Urine Bacteria Absent (Absent) 11/13/18 15:30 Cellular Casts Cancelled 11/14/18 17:00 Epithelial Casts Cancelled 11/14/18 17:00 Fatty Casts Cancelled 11/14/18 17:00 Hyaline Casts Cancelled 11/14/18 17:00 Granular Casts Cancelled 11/14/18 17:00 Waxy Casts Cancelled 11/14/18 17:00 Broad Casts Cancelled 11/14/18 17:00 RBC Casts Cancelled 11/14/18 17:00 WBC Casts Cancelled 11/14/18 17:00 Urine Trichomonas Cancelled 11/14/18 17:00 Urine Yeast Cancelled 11/14/18 17:00 Urine Sperm Cancelled 11/14/18 17:00 Ur Oval Fat Bodies Cancelled 11/14/18 17:00 Urinalysis Comment Cancelled 11/14/18 17:00 Urine Glucose Negative (Negative) 11/13/18 15:30 Urine Ascorbic Acid * (Negative) A 11/13/18 15:30 Blood Type A Positive 11/14/18 05:08 Antibody Screen Negative 11/14/18 05:08 Crossmatch See Detail 11/14/18 05:08
[2018-11-16] MEDS: CMC:Dabigatran CAP(NF) 150 MG CAP PO SCH ×2 (08:35→20:55)
[2018-11-16] MEDS: Gabapentin CAP(*) 300 MG PO SCH ×2 (08:36→20:56)
[2018-11-16] MEDS: Ferrous Gluconate TAB* 324 MG TAB PO SCH (08:37)
[2018-11-16] MEDS: Calcium/Vitamin D TAB 250/125* TAB PO SCH ×2 (08:38→20:55)
[2018-11-16] MEDS: Topiramate TAB(*) 25 MG PO SCH ×2 (08:39→20:55)
[2018-11-16] MEDS: Cyanocobalamin TAB* 500 MCG PO SCH (08:40)
[2018-11-16] MEDS: Primidone TAB(*) 50 MG PO SCH ×2 (08:41→20:55)
[2018-11-16] MEDS: Docusate CAP* 100 MG PO PRN (08:41)
[2018-11-16] MEDS: Acetaminophen TAB* 325 MG PO PRN ×2 (08:42→14:30)
[2018-11-16] MEDS: Fluticasone NASAL SPRAY 50MCG* 16 gm SPRAY BTL BOTH NARES SCH (08:43)
[2018-11-16] MEDS ORDERED: Metoprolol Tartrate TAB* 50 mg PO ONE (09:58)
[2018-11-16 11:00] LABS: Folate 6.81 ng/mL (>3.99)
[2018-11-16] MEDS ORDERED: D5W 1/2 NS 1000 ML BAG* 1,000 ML IV SCH (15:00)
[2018-11-16] MEDS: Metoprolol Succinate XL TAB* 25 MG PO SCH (19:23)
--- NOTE | 2018-11-16 20:25 | PN ---
Subjective Date of Service: 11/16/18 Interval History: Noted with SBPs frequently in the 90s, so metoprolol has been held for a couple days. Pt noted to be occasionally rapid to 110s on tele, so given metoprolol tartrate this AM with good effect. Will decrease nightly metoprolol succinate dose. Noted with low urine output today, so will continue with IVF - will give another liter today at 100cc/hr. Pt with significant HF history and was on furosemide and spironolactone at home, but is likely still hypovolemic. She denies pain when seated, but has significant pain on movement. She had light headedness when her SBPs were in the 90s. Will DC Jasmine catheter today. Had BM today. Objective Active Medications: Acetaminophen (Tylenol Tab*) 650 mg PO Q4H PRN PRN Reason: FEVER/PAIN Last Admin: 11/16/18 14:30 Dose: 650 mg Amiodarone HCl (Cordarone Tab*) 100 mg PO DAILY [facility] Last Admin: 11/16/18 08:32 Dose: 100 mg Calcium/Vitamin D (Oscal D Tab 250/125*) 2 tab PO BID [facility] Last Admin: 11/16/18 08:38 Dose: 2 tab Clonazepam (Klonopin Tab(*)) 0.125 mg PO BID PRN PRN Reason: TREMORS Cyanocobalamin (Vitamin B12 Tab*) 500 mcg PO QAM [facility] Last Admin: 11/16/18 08:40 Dose: 500 mcg Dabigatran (Pradaxa Cap(Nf)) 150 mg PO BID [facility] Last Admin: 11/16/18 08:35 Dose: 150 mg Ferrous Gluconate (Fergon Tab*) 324 mg PO DAILY [facility] Last Admin: 11/16/18 08:37 Dose: 324 mg Fluticasone Propionate (Flonase Nasal [place] 50mcg*) 1 spray BOTH NARES DAILY [facility] Last Admin: 11/16/18 08:43 Dose: 1 spray Gabapentin (Neurontin Cap(*)) 300 mg PO QAM [facility] Last Admin: 11/16/18 08:36 Dose: 300 mg Gabapentin (Neurontin Cap(*)) 600 mg PO BEDTIME [facility] Last Admin: 11/15/18 20:42 Dose: 600 mg Dextrose/Sodium Chloride (D5w 1/2 Ns 1000 Ml Bag*) 1,000 mls @ 100 mls/hr IV PER RATE [facility] Stop: 11/17/18 00:59 Last Admin: 11/16/18 15:08 Dose: 100 mls/hr Magnesium Hydroxide (Milk Of Magnesia Liq*) 30 ml PO Q6H PRN PRN Reason: CONSTIPATION Last Admin: 11/16/18 08:34 Dose: 30 ml Metoprolol Succinate (Toprol Xl Tab*) 25 mg PO QPM [facility] Last Admin: 11/16/18 19:23 Dose: 25 mg Mometasone Furoate (Asmanex 220 Mcg Mdi *) 1 puff INH QPM PRN PRN Reason: WHEEZING Morphine Sulfate (Morphine Inj (Syringe))*) 2 mg IV Q4H PRN PRN Reason: PAIN - BREAKTHROUGH Multivitamins/Minerals (Theragran/Minerals Tab*) 1 tab PO DAILY [facility] Ondansetron HCl (Zofran Inj*) 4 mg IV Q6H PRN PRN Reason: NAUSEA/VOMITING Oxycodone/Acetaminophen (Percocet 5/325 Tab*) 1 tab PO Q4H PRN PRN Reason: Pain Primidone (Mysoline Tab(*)) 150 mg PO BID [facility] Last Admin: 11/16/18 08:41 Dose: 150 mg Senna (Senokot Tab*) 2 tab PO BEDTIME PRN PRN Reason: CONSTIPATION Topiramate (Topamax(*)) 50 mg PO BID [facility] Last Admin: 11/16/18 08:39 Dose: 50 mg Tramadol HCl (Ultram*) 50 mg PO Q6H PRN PRN Reason: PAIN Vital Signs - 8 hr 11/16/18 11/16/18 11/16/18 15:15 19:32 19:49 Temperature 98.8 F 98.3 F Pulse Rate 89 92 Respiratory 20 20 17 Rate Blood Pressure 117/87 102/54 (mmHg) O2 Sat by Pulse 96 98 Oximetry Oxygen Devices in Use Now: CPAP Appearance: frail appearing elderly woman in NAD, pleasant and interactive Ears/Nose/Mouth/Throat: Clear Oropharnyx, Mucous Membranes Moist Neck: NL Appearance and Movements; NL JVP, Trachea Midline Respiratory: - - crackles at L base Cardiovascular: - - irreg irreg, systolic murmur Abdominal: NL Sounds; No Tenderness; No Distention, No Hepatosplenomegaly Extremities: No Edema Skin: No Rash or Ulcers Neurological: Alert and Oriented x 3 Result Diagrams: 11/16/18 04:50 11/16/18 04:50 Assess/Plan/Problems-Billing Assessment: 83W with afib on AC s/p multiple failed ablations/cardioversions, 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 - Patient Problems (1) Atrial fibrillation Comment: Recurrance of afib and possible RVR, with history of ablations and cardioversions. - on amiodarone and dabigatran - will decrease home metoprolol suc to 25, with plan to increase as BPs tolerate - if unable to keep on beta-jas, would consult with cardiology for further recs, as she frequently becomes rapid, and this is likely related to her initial fall resulting in fracture (2) Closed right hip fracture Comment: ORIF 11/14. - pain control - bowel regimen - PT/OT for placement - appreciate ortho input (3) Heart failure with reduced ejection fraction Comment: Tachy-induced. - holding home furosemide and spironolactone given severe hypovolemia on presentation and low BPs during admission - f/u with Dr. Prado as outpatient - will order AM chest xray given crackles on exam; if notable for volume overload, will be cautious with further IVF, and if BPs tolerate, can consider restarting furosemide (4) Essential tremor Comment: This is the indication for her topiramate and primidone. (5) Aortic stenosis (6) Full code status
[2018-11-16] MEDS ORDERED: Morphine INJ* 2 MG/ML 1 ML SYRINGE (TWO MG - NEW SYRINGE VERSION) IV PRN (20:44)
[2018-11-16] MEDS ORDERED: oxyCODONE TAB* 5 MG TAB PO PRN (20:44)
[2018-11-16] MEDS ORDERED: Acetaminophen TAB* 325 MG PO PRN (20:44)
[2018-11-17 07:16] LABS: Blood Urea Nitrogen 17 mg/dL (6-24); CO2 Carbon Dioxide 31 mmol/L (22-32); Calcium 8.3 mg/dL (8.6-10.3); Chloride 106 mmol/L (101-111); EGFR African American 99.5 (>60); EGFR Non-African American 82.2 (>60); Glucose 100 mg/dL (70-100); Sodium 137 mmol/L (135-145)
[2018-11-17] MEDS: Fluticasone NASAL SPRAY 50MCG* 16 gm SPRAY BTL BOTH NARES SCH (09:03)
[2018-11-17] MEDS: Gabapentin CAP(*) 300 MG PO SCH ×2 (09:03→21:05)
[2018-11-17] MEDS: Primidone TAB(*) 50 MG PO SCH ×2 (09:03→21:04)
[2018-11-17] MEDS: Calcium/Vitamin D TAB 250/125* TAB PO SCH ×2 (09:04→21:05)
[2018-11-17] MEDS: CMC:Dabigatran CAP(NF) 150 MG CAP PO SCH ×2 (09:04→21:05)
[2018-11-17] MEDS: Multivitamins/Minerals TAB PO SCH (09:04)
[2018-11-17] MEDS: Cyanocobalamin TAB* 500 MCG PO SCH (09:04)
[2018-11-17] MEDS: Topiramate TAB(*) 25 MG PO SCH ×2 (09:04→21:05)
[2018-11-17] MEDS: Amiodarone TAB* 200 MG PO SCH (09:05)
[2018-11-17] MEDS: Ferrous Gluconate TAB* 324 MG TAB PO SCH (09:05)
--- NOTE | 2018-11-17 10:11 | PN ---
Progress Note - Progress Note Date of Service: 11/17/18 SOAP: Subjective: []Saw Rosalina at bedside. Right hip pain is well controlled at rest, worsens though remains tolerable with movement. Denies CP, SOB, dizziness , nausea. Objective: [] Gen: NAD RLE: Dressing changed, Incisions CDI. Thigh is soft, DF/PF intact, DP2+, sensation intact to light touch distally. Calves supple and nontender without erythema, edema or palpable cords Assessment: POD#3 ORIF right hip Plan: 1) PT/OT- WBAT 2) hospitalist co-managing 3) DVT prophy: on pradaxa 4) daily dry sterile dressing change 5) PMRU ins auth pending Vital Signs Temp 98.9 F 11/17/18 08:00 Pulse 83 11/17/18 09:15 Resp 20 11/17/18 09:03 BP 96/54 11/17/18 08:00 Pulse Ox 99 11/17/18 08:00 Intake & Output 11/16/18 11/17/18 11/17/18 18:59 06:59 18:59 Intake Total 1350 Output Total 525 800 350 Balance -525 550 -350 Intake: IV Fluids 990 D5W 1/2 NS 990 Oral 360 Output: Urine 800 350 Jasmine 525 Other: # Bowel Movements 1 Estimated Stool Amount Small Laboratory Last Values WBC 5.6 10^3/uL (3.5-10.8) 11/16/18 04:50 RBC 3.00 10^6 /uL (3.70-4.87) L 11/16/18 04:50 Hgb 9.7 g/dL (12.0-16.0) L 11/16/18 04:50 Hct 29 % (35-47) L 11/16/18 04:50 MCV 97 fL (80-97) 11/16/18 04:50 MCH 32 pg (27-31) H 11/16/18 04:50 MCHC 33 g/dL (31-36) 11/16/18 04:50 RDW 16 % (10-15) H 11/16/18 04:50 Plt Count 136 10^3/uL (150-450) L 11/16/18 04:50 MPV 8.2 fL (7.4-10.4) 11/16/18 04:50 Neut % (Auto) 65.6 % 11/16/18 04:50 Lymph % (Auto) 23.5 % 11/16/18 04:50 [place] % (Auto) 8.5 % 11/16/18 04:50 Eos % (Auto) 2.1 % 11/16/18 04:50 Baso % (Auto) 0.3 % 11/16/18 04:50 Absolute Neuts (auto) 3.7 10^3/ul (1.5-7.7) 11/16/18 04:50 Absolute Lymphs (auto) 1.3 10^3/ul (1.0-4.8) 11/16/18 04:50 Absolute Monos (auto) 0.5 10^3/ul (0-0.8) 11/16/18 04:50 Absolute Eos (auto) 0.1 10^3/ul (0-0.6) 11/16/18 04:50 Absolute Basos (auto) 0.0 10^3/ul (0-0.2) 11/16/18 04:50 Absolute Nucleated RBC 0.0 10^3/ul 11/16/18 04:50 Nucleated RBC % 0.1 11/16/18 04:50 INR (Anticoag Therapy) 1.11 (0.82-1.09) H 11/13/18 15:30 Sodium 137 mmol/L (135-145) 11/17/18 06:44 Potassium 5.0 mmol/L (3.5-5.0) 11/17/18 06:44 Chloride 106 mmol/L (101-111) 11/17/18 06:44 Carbon Dioxide 31 mmol/L (22-32) 11/17/18 06:44 Anion Gap 2 mmol/L (2-11) 11/16/18 04:50 BUN 17 mg/dL (6-24) 11/17/18 06:44 Creatinine 0.68 mg/dL (0.51-0.95) 11/17/18 06:44 Est GFR ( Amer) 99.5 (>60) 11/17/18 06:44 Est GFR (Non-Af Amer) 82.2 (>60) 11/17/18 06:44 BUN/Creatinine Ratio 25.0 (8-20) H 11/17/18 06:44 Glucose 100 mg/dL (70-100) 11/17/18 06:44 Lactic Acid 1.1 mmol/L (0.5-2.0) 11/13/18 15:31 Calcium 8.3 mg/dL (8.6-10.3) L 11/17/18 06:44 Magnesium 2.0 mg/dL (1.9-2.7) 11/17/18 06:44 Total Bilirubin 0.50 mg/dL (0.2-1.0) 11/13/18 15:30 AST 58 U/L (13-39) H 11/13/18 15:30 ALT 29 U/L (7-52) 11/13/18 15:30 Alkaline Phosphatase 79 U/L (34-104) 11/13/18 15:30 Total Creatine Kinase 889 U/L (10-223) H 11/14/18 05:08 CK-MB (CK-2) 17.2 ng/mL (0.6-6.3) H 11/14/18 05:08 C-Reactive Protein 152.30 mg/L (<8.01) H 11/13/18 15:30 B-Natriuretic Peptide 501 pg/mL (<=100) H 11/13/18 15:31 Total Protein 7.1 g/dL (6.4-8.9) 11/13/18 15:30 Albumin 3.6 g/dL (3.2-5.2) 11/13/18 15:30 Globulin 3.5 g/dL (2-4) 11/13/18 15:30 Albumin/Globulin Ratio 1.0 (1-3) 11/13/18 15:30 Lipase 19 U/L (11.0-82.0) 11/13/18 15:30 Folate 6.81 ng/mL (>3.99) 11/16/18 04:50 Urine Color Taryn 11/13/18 15:30 Urine Appearance Cloudy 11/13/18 15:30 Urine pH 5.0 (5-9) 11/13/18 15:30 Ur Specific [place] 1.027 (1.010-1.030) 11/13/18 15:30 Urine Protein 1+(30 mg/dl) (Negative) A 11/13/18 15:30 Urine Ketones 1+ (Negative) A 11/13/18 15:30 Urine Blood Negative (Negative) 11/13/18 15:30 Urine Nitrate Negative (Negative) 11/13/18 15:30 Urine Bilirubin Negative (Negative) 11/13/18 15:30 Urine Urobilinogen Negative (Negative) 11/13/18 15:30 Ur Leukocyte Esterase Negative (Negative) 11/13/18 15:30 Urine WBC (Auto) Absent (Absent) 11/13/18 15:30 Urine RBC (Auto) Absent (Absent) 11/13/18 15:30 Ur Squamous Epith Cells Present (Absent) A 11/13/18 15:30 Ur Transition Epith Cell Cancelled 11/14/18 17:00 Ur Renal Epithelial Cell Cancelled 11/14/18 17:00 Calcium Carbonate Cryst Cancelled 11/14/18 17:00 Calcium Phosphate Cryst Cancelled 11/14/18 17:00 Calcium Oxalate Crystal Cancelled 11/14/18 17:00 Leucine Crystals Cancelled 11/14/18 17:00 Cystine Crystals Cancelled 11/14/18 17:00 Uric Acid Crystals Cancelled 11/14/18 17:00 Triple Phos Crystals Cancelled 11/14/18 17:00 Tyrosine Crystals Cancelled 11/14/18 17:00 Amorphous Crystals Cancelled 11/14/18 17:00 Urine Bacteria Absent (Absent) 11/13/18 15:30 Cellular Casts Cancelled 11/14/18 17:00 Epithelial Casts Cancelled 11/14/18 17:00 Fatty Casts Cancelled 11/14/18 17:00 Hyaline Casts Cancelled 11/14/18 17:00 Granular Casts Cancelled 11/14/18 17:00 Waxy Casts Cancelled 11/14/18 17:00 Broad Casts Cancelled 11/14/18 17:00 RBC Casts Cancelled 11/14/18 17:00 WBC Casts Cancelled 11/14/18 17:00 Urine Trichomonas Cancelled 11/14/18 17:00 Urine Yeast Cancelled 11/14/18 17:00 Urine Sperm Cancelled 11/14/18 17:00 Ur Oval Fat Bodies Cancelled 11/14/18 17:00 Urinalysis Comment Cancelled 11/14/18 17:00 Urine Glucose Negative (Negative) 11/13/18 15:30 Urine Ascorbic Acid * (Negative) A 11/13/18 15:30 Blood Type A Positive 11/14/18 05:08 Antibody Screen Negative 11/14/18 05:08 Crossmatch See Detail 11/14/18 05:08
--- NOTE | 2018-11-17 11:45 | PN ---
Subjective Date of Service: 11/17/18 Interval History: Reports minimal pain to left hip. Reports slight dizziness with standing, resolves with sitting. Vital signs reviewed and patient was noted to have pulse rate of 36 this AM and then 118-130's with activity. Will titrate metoprolol. Denies chest pain or shortness of breath. Denies abd pain n/v/d. Family History: Unchanged from Admission Social History: Unchanged from Admission Past Medical History: Unchanged from Admission Objective Active Medications: Acetaminophen (Tylenol Tab*) 975 mg PO Q8H PRN PRN Reason: FEVER/PAIN Last Admin: 11/17/18 10:06 Dose: 975 mg Amiodarone HCl (Cordarone Tab*) 100 mg PO DAILY [facility] Last Admin: 11/17/18 09:05 Dose: 100 mg Calcium/Vitamin D (Oscal D Tab 250/125*) 2 tab PO BID [facility] Last Admin: 11/17/18 09:04 Dose: 2 tab Clonazepam (Klonopin Tab(*)) 0.125 mg PO BID PRN PRN Reason: TREMORS Cyanocobalamin (Vitamin B12 Tab*) 500 mcg PO QAM [facility] Last Admin: 11/17/18 09:04 Dose: 500 mcg Dabigatran (Pradaxa Cap(Nf)) 150 mg PO BID [facility] Last Admin: 11/17/18 09:04 Dose: 150 mg Ferrous Gluconate (Fergon Tab*) 324 mg PO DAILY [facility] Last Admin: 11/17/18 09:05 Dose: 324 mg Fluticasone Propionate (Flonase Nasal [place] 50mcg*) 1 spray BOTH NARES DAILY [facility] Last Admin: 11/17/18 09:03 Dose: 1 spray Gabapentin (Neurontin Cap(*)) 300 mg PO QAM [facility] Last Admin: 11/17/18 09:03 Dose: 300 mg Gabapentin (Neurontin Cap(*)) 600 mg PO BEDTIME [facility] Last Admin: 11/16/18 20:56 Dose: 600 mg Magnesium Hydroxide (Milk Of Magnesia Liq*) 30 ml PO Q6H PRN PRN Reason: CONSTIPATION Last Admin: 11/16/18 08:34 Dose: 30 ml Metoprolol Succinate (Toprol Xl Tab*) 25 mg PO QPM [facility] Last Admin: 11/16/18 19:23 Dose: 25 mg Mometasone Furoate (Asmanex 220 Mcg Mdi *) 1 puff INH QPM PRN PRN Reason: WHEEZING Morphine Sulfate (Morphine Inj (Syringe))*) 2 mg IV Q6H PRN PRN Reason: PAIN - BREAKTHROUGH Multivitamins/Minerals (Theragran/Minerals Tab*) 1 tab PO DAILY [facility] Last Admin: 11/17/18 09:04 Dose: 1 tab Ondansetron HCl (Zofran Inj*) 4 mg IV Q6H PRN PRN Reason: NAUSEA/VOMITING Oxycodone HCl (Roxycodone Tab*) 5 mg PO Q6H PRN PRN Reason: mod-severe pain Primidone (Mysoline Tab(*)) 150 mg PO BID [facility] Last Admin: 11/17/18 09:03 Dose: 150 mg Senna (Senokot Tab*) 2 tab PO BEDTIME PRN PRN Reason: CONSTIPATION Topiramate (Topamax(*)) 50 mg PO BID [facility] Last Admin: 11/17/18 09:04 Dose: 50 mg Tramadol HCl (Ultram*) 50 mg PO Q6H PRN PRN Reason: PAIN Vital Signs - 8 hr 11/17/18 11/17/18 11/17/18 08:00 09:03 09:15 Temperature 98.9 F Pulse Rate 36 83 Respiratory 16 20 Rate Blood Pressure 96/54 (mmHg) O2 Sat by Pulse 99 Oximetry Oxygen Devices in Use Now: None, CPAP Appearance: appears comfortable sitting in the chair, no acute distress Eyes: No Scleral Icterus Ears/Nose/Mouth/Throat: Clear Oropharnyx, Mucous Membranes Moist Neck: NL Appearance and Movements; NL JVP, Trachea Midline Respiratory: Symmetrical Chest Expansion and Respiratory Effort, Clear to Auscultation Cardiovascular: NL Sounds; No Murmurs; No JVD, No Edema Abdominal: NL Sounds; No Tenderness; No Distention Extremities: No Clubbing, Cyanosis, - - edema to right leg, dressing dry intact to right leg. 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 - Patient Problems (1) Aortic stenosis Current Visit: Yes Status: Acute Code(s): I35.0 - NONRHEUMATIC AORTIC (VALVE ) STENOSIS SNOMED Code(s): 04066902 (2) Atrial fibrillation Current Visit: Yes Status: Acute Code(s): I48.91 - UNSPECIFIED ATRIAL FIBRILLATION SNOMED Code(s): 08263705 Comment: Recurrance of afib and possible RVR, with history of ablations and cardioversions. - on amiodarone and dabigatran - Metoprolol- given 75mg yesterday SBP low 90's and heart rate 36-then 118-140 with exertion this AM will decrease the dose and give 25mg - and consider 12.5 mg BID continue to monitor on telemetry. - if unable to keep on beta-jas, would consult with cardiology for further recs, as she frequently becomes rapid, and this is likely related to her initial fall resulting in fracture (3) Closed right hip fracture Current Visit: Yes Status: Acute Code(s): S72.001A - FRACTURE OF UNSP PART OF NECK OF RIGHT FEMUR, INIT SNOMED Code(s): 547591199 Comment: ORIF 11/14. - pain control - bowel regimen - PT/OT for placement - appreciate ortho input (4) Essential tremor Current Visit: Yes Status: Acute Code(s): G25.0 - ESSENTIAL TREMOR SNOMED Code(s): 727651391 Comment: This is the indication for her topiramate and primidone. (5) Heart failure with reduced ejection fraction Current Visit: Yes Status: Acute Code(s): I50.20 - UNSPECIFIED SYSTOLIC ( CONGESTIVE) HEART FAILURE SNOMED Code(s): 208983367 Comment: Tachy-induced. - holding home furosemide and spironolactone given severe hypovolemia on presentation and low BPs during admission - f/u with Dr. Prado as outpatient - chest xray - bilat small pleural effusions; will use caution with further fluids replavcement. will continue to hold furosemide, d/t sbp's in the 90's, patient without shortness of breath (6) Rhabdomyolysis Current Visit: Yes Status: Acute Code(s): M62.82 - RHABDOMYOLYSIS SNOMED Code(s): 293796014 Comment: CK 1043 11/13, add on 11/14 trended down (7) Full code status Current Visit: Yes Status: Acute Code(s): Z78.9 - OTHER SPECIFIED HEALTH STATUS SNOMED Code(s): 774229842 Status and Disposition: Will need rehab at discharge
[2018-11-17] MEDS ORDERED: oxyCODONE TAB* 5 MG TAB PO PRN (16:28)
[2018-11-17] MEDS: Metoprolol Succinate XL TAB* 25 MG PO SCH (18:26)
[2018-11-17] MEDS ORDERED: Iodixanol* (CONTRAST) 320 MG/ML 100 ML SDV IV ONE (19:48)
[2018-11-17] MEDS: Acetaminophen TAB* 325 MG PO PRN (21:04)
[2018-11-18 05:16] LABS: Hematocrit 26 % (35-47); Hemoglobin 8.6 g/dL (12.0-16.0); Mean Corpuscular HGB Conc 34 g/dL (31-36); Mean Corpuscular Hemoglobin 33 pg (27-31); Mean Corpuscular Volume 97 fL (80-97); Mean Platelet Volume 7.9 fL (7.4-10.4); Platelet Count 156 10^3/uL (150-450); Red Blood Count 2.63 10^6 /uL (3.70-4.87); Red Cell Distribution Width 16 % (10-15); White Blood Count 5.2 10^3/uL (3.5-10.8)
[2018-11-18 05:48] LABS: BUN/Creatinine Ratio 29.5 (8-20); Calcium 7.9 mg/dL (8.6-10.3); EGFR African American 112.8 (>60); EGFR Non-African American 93.2 (>60)
[2018-11-18] MEDS: Fluticasone NASAL SPRAY 50MCG* 16 gm SPRAY BTL BOTH NARES SCH (08:41)
[2018-11-18] MEDS: Magnesium Hydroxide LIQ* 30 ML UDC PO PRN (08:41)
[2018-11-18] MEDS: Calcium/Vitamin D TAB 250/125* TAB PO SCH ×2 (08:41→20:53)
[2018-11-18] MEDS: Topiramate TAB(*) 25 MG PO SCH ×2 (08:41→20:53)
[2018-11-18] MEDS: Cyanocobalamin TAB* 500 MCG PO SCH (08:42)
[2018-11-18] MEDS: Ferrous Gluconate TAB* 324 MG TAB PO SCH (08:42)
[2018-11-18] MEDS: Multivitamins/Minerals TAB PO SCH (08:42)
[2018-11-18] MEDS: CMC:Dabigatran CAP(NF) 150 MG CAP PO SCH ×2 (08:42→20:51)
[2018-11-18] MEDS: Gabapentin CAP(*) 300 MG PO SCH ×2 (08:42→20:51)
[2018-11-18] MEDS: Amiodarone TAB* 200 MG PO SCH (08:42)
[2018-11-18] MEDS: Acetaminophen TAB* 325 MG PO PRN ×2 (08:44→17:21)
[2018-11-18] MEDS: Primidone TAB(*) 50 MG PO SCH ×2 (08:44→20:52)
[2018-11-18] MEDS ORDERED: NS 0.9% 500 ML* 500 ML IV SCH (14:00)
--- NOTE | 2018-11-18 16:23 | PN ---
Subjective Date of Service: 11/18/18 Interval History: Patient denies chest pain or shortness of breath. Denies abd pain , n/v/d. Does report mild right hip pain but tolerable with current pain medications. Spoke to cardiology (Dr. Prado) today- about patients uncontrolled a-fib, plan is to do OBI guided cardioversion in the AM. Patient will be Npo after midnight x meds - should receive pradaxa and amiodarone prior to procedure. Family History: Unchanged from Admission Social History: Unchanged from Admission Past Medical History: Unchanged from Admission Objective Active Medications: Acetaminophen (Tylenol Tab*) 650 mg PO Q8H PRN PRN Reason: PAIN SCALE 1-5 Last Admin: 11/18/18 08:44 Dose: 650 mg Amiodarone HCl (Cordarone Tab*) 100 mg PO DAILY [facility] Last Admin: 11/18/18 08:42 Dose: 100 mg Calcium/Vitamin D (Oscal D Tab 250/125*) 2 tab PO BID [facility] Last Admin: 11/18/18 08:41 Dose: 2 tab Clonazepam (Klonopin Tab(*)) 0.125 mg PO BID PRN PRN Reason: TREMORS Cyanocobalamin (Vitamin B12 Tab*) 500 mcg PO QAM [facility] Last Admin: 11/18/18 08:42 Dose: 500 mcg Dabigatran (Pradaxa Cap(Nf)) 150 mg PO BID [facility] Last Admin: 11/18/18 08:42 Dose: 150 mg Ferrous Gluconate (Fergon Tab*) 324 mg PO DAILY [facility] Last Admin: 11/18/18 08:42 Dose: 324 mg Fluticasone Propionate (Flonase Nasal [place] 50mcg*) 1 spray BOTH NARES DAILY [facility] Last Admin: 11/18/18 08:41 Dose: 1 spray Gabapentin (Neurontin Cap(*)) 300 mg PO QAM [facility] Last Admin: 11/18/18 08:42 Dose: 300 mg Gabapentin (Neurontin Cap(*)) 600 mg PO BEDTIME [facility] Last Admin: 11/17/18 21:05 Dose: 600 mg Sodium Chloride (Ns 0.9% 500 Ml*) 500 mls @ 150 mls/hr IV PER RATE [facility] Stop: 11/18/18 17:19 Last Admin: 11/18/18 13:49 Dose: 150 mls/hr Magnesium Hydroxide (Milk Of Magnesia Liq*) 30 ml PO Q6H PRN PRN Reason: CONSTIPATION Last Admin: 11/18/18 08:41 Dose: 30 ml Metoprolol Succinate (Toprol Xl Tab*) 25 mg PO QPM [facility] Last Admin: 11/17/18 18:26 Dose: 25 mg Mometasone Furoate (Asmanex 220 Mcg Mdi *) 1 puff INH QPM PRN PRN Reason: WHEEZING Multivitamins/Minerals (Theragran/Minerals Tab*) 1 tab PO DAILY [facility] Last Admin: 11/18/18 08:42 Dose: 1 tab Ondansetron HCl (Zofran Inj*) 4 mg IV Q6H PRN PRN Reason: NAUSEA/VOMITING Oxycodone HCl (Roxycodone Tab*) 5 mg PO Q6H PRN PRN Reason: PAIN SCALE 6-10 Primidone (Mysoline Tab(*)) 150 mg PO BID [facility] Last Admin: 11/18/18 08:44 Dose: 150 mg Senna (Senokot Tab*) 2 tab PO BEDTIME PRN PRN Reason: CONSTIPATION Topiramate (Topamax(*)) 50 mg PO BID [facility] Last Admin: 11/18/18 08:41 Dose: 50 mg Vital Signs - 8 hr 11/18/18 11/18/18 11/18/18 08:42 10:46 11:40 Temperature 99.9 F Pulse Rate 97 Respiratory 16 18 20 Rate Blood Pressure 95/50 (mmHg) O2 Sat by Pulse 97 Oximetry 11/18/18 15:45 Temperature 98.3 F Pulse Rate 85 Respiratory 22 Rate Blood Pressure 97/45 (mmHg) O2 Sat by Pulse 96 Oximetry Oxygen Devices in Use Now: None Appearance: appears comfortable sitting in the chair, no acute distress. Eyes: No Scleral Icterus Ears/Nose/Mouth/Throat: Clear Oropharnyx, Mucous Membranes Moist Neck: NL Appearance and Movements; NL JVP, Trachea Midline Respiratory: Symmetrical Chest Expansion and Respiratory Effort, Clear to Auscultation Cardiovascular: NL Sounds; No Murmurs; No JVD, - - irregular rate - afib on the monitor Abdominal: NL Sounds; No Tenderness; No Distention Extremities: No Clubbing, Cyanosis, - - mild swelling noted to right lower leg, dressing is dry and intact Skin: No Rash or Ulcers Neurological: Alert and Oriented x 3 Nutrition: Taking PO's Result Diagrams: 11/18/18 04:57 11/18/18 04:57 Assess/Plan/Problems-Billing Assessment: 83W with afib on AC s/p multiple failed ablations/cardioversions, 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 - Patient Problems (1) Atrial fibrillation Current Visit: Yes Status: Acute Code(s): I48.91 - UNSPECIFIED ATRIAL FIBRILLATION SNOMED Code(s): 91245187 Comment: Recurrance of afib and possible RVR, with history of ablations and cardioversions. - on amiodarone and dabigatran - continue Metoprolol 25 mg SBP 95-97 and heart rate 80's- 120's, continues with increased heart rates with exertion - patient appears dry will give 500 cc NS- will use caution with iVF d/t hx of CHF - spoke to Dr. Prado today - this patient is well known to her, plan is do OBI guided cardioverision tomorrow (2) Closed right hip fracture Current Visit: Yes Status: Acute Code(s): S72.001A - FRACTURE OF UNSP PART OF NECK OF RIGHT FEMUR, INIT SNOMED Code(s): 786859784 Comment: ORIF 11/14. - pain control - bowel regimen - PT/OT for placement - appreciate ortho input (3) Essential tremor Current Visit: Yes Status: Acute Code(s): G25.0 - ESSENTIAL TREMOR SNOMED Code(s): 552257295 Comment: This is the indication for her topiramate and primidone. (4) Heart failure with reduced ejection fraction Current Visit: Yes Status: Acute Code(s): I50.20 - UNSPECIFIED SYSTOLIC ( CONGESTIVE) HEART FAILURE SNOMED Code(s): 024794741 Comment: Tachy-induced. - holding home furosemide and spironolactone given hypovolemia on presentation and low BPs during admission - chest xray - bilat small pleural effusions; will use caution with fluids replacement. will continue to hold furosemide, d/t sbp's in the 90's, patient without shortness of breath - will give 500cc ns bolus (5) Rhabdomyolysis Current Visit: Yes Status: Acute Code(s): M62.82 - RHABDOMYOLYSIS SNOMED Code(s): 086164997 Comment: CK 1043 11/13, add on 11/14 trended down (6) Full code status Current Visit: Yes Status: Acute Code(s): Z78.9 - OTHER SPECIFIED HEALTH STATUS SNOMED Code(s): 788685250 Status and Disposition: Will need rehab at discharge
[2018-11-18] MEDS: Metoprolol Succinate XL TAB* 25 MG PO SCH (17:30)
[2018-11-19 05:11] LABS: Hematocrit 24 % (35-47); Mean Corpuscular HGB Conc 34 g/dL (31-36); Mean Corpuscular Hemoglobin 33 pg (27-31); Mean Corpuscular Volume 97 fL (80-97); Mean Platelet Volume 7.3 fL (7.4-10.4); Platelet Count 172 10^3/uL (150-450); Red Blood Count 2.46 10^6 /uL (3.70-4.87); Red Cell Distribution Width 16 % (10-15); White Blood Count 5.4 10^3/uL (3.5-10.8)
[2018-11-19 05:27] LABS: BUN/Creatinine Ratio 19.4 (8-20); Calcium 8.2 mg/dL (8.6-10.3); EGFR African American 101.2 (>60); EGFR Non-African American 83.7 (>60); Potassium 4.1 mmol/L (3.5-5.0)
[2018-11-19] MEDS: CMC:Dabigatran CAP(NF) 150 MG CAP PO SCH ×2 (07:31→20:47)
[2018-11-19] MEDS: Amiodarone TAB* 200 MG PO SCH (07:32)
[2018-11-19] MEDS: Fluticasone NASAL SPRAY 50MCG* 16 gm SPRAY BTL BOTH NARES SCH (07:33)
[2018-11-19] MEDS: Ferrous Gluconate TAB* 324 MG TAB PO SCH (07:33)
[2018-11-19] MEDS: Calcium/Vitamin D TAB 250/125* TAB PO SCH ×2 (07:33→20:47)
[2018-11-19] MEDS: Gabapentin CAP(*) 300 MG PO SCH ×2 (07:33→20:46)
[2018-11-19] MEDS: Cyanocobalamin TAB* 500 MCG PO SCH (07:33)
[2018-11-19] MEDS: Topiramate TAB(*) 25 MG PO SCH ×2 (07:34→20:47)
[2018-11-19] MEDS: Primidone TAB(*) 50 MG PO SCH ×2 (07:34→20:47)
[2018-11-19] MEDS: Multivitamins/Minerals TAB PO SCH (07:34)
[2018-11-19] MEDS ORDERED: Flumazenil* 0.1 MG/ML 5 ML MDV ONE (09:06)
[2018-11-19] MEDS ORDERED: Lidocaine 2% VISCOUS* 15 ML UDC ONE (09:06)
[2018-11-19] MEDS ORDERED: Naloxone* 0.4 MG/ML 1 ML VIAL ONE (09:06)
[2018-11-19] MEDS ORDERED: fentaNYL* 50 MCG/ML 2 ML VIAL (100 MCG VIAL) ONE (09:06)
[2018-11-19] MEDS ORDERED: Midazolam* 1 MG/ML 5 ML VIAL (5 MG) ONE (09:06)
--- NOTE | 2018-11-19 10:05 | PN ---
Subjective Date of Service: 11/19/18 - cc: afib, low BP Interval History: The patient is feeling ok, aware of atrial fibrillation. Hospitalists having trouble keeping BP up with afib, RVR. Medications Active Medications: Acetaminophen (Tylenol Tab*) 650 mg PO Q8H PRN PRN Reason: PAIN SCALE 1-5 Last Admin: 11/18/18 17:21 Dose: 650 mg Amiodarone HCl (Cordarone Tab*) 100 mg PO DAILY [facility] Last Admin: 11/19/18 07:32 Dose: 100 mg Calcium/Vitamin D (Oscal D Tab 250/125*) 2 tab PO BID [facility] Last Admin: 11/19/18 07:33 Dose: Not Given Clonazepam (Klonopin Tab(*)) 0.125 mg PO BID PRN PRN Reason: TREMORS Cyanocobalamin (Vitamin B12 Tab*) 500 mcg PO QAM [facility] Last Admin: 11/19/18 07:33 Dose: Not Given Dabigatran (Pradaxa Cap(Nf)) 150 mg PO BID [facility] Last Admin: 11/19/18 07:31 Dose: 150 mg Ferrous Gluconate (Fergon Tab*) 324 mg PO DAILY [facility] Last Admin: 11/19/18 07:33 Dose: Not Given Fluticasone Propionate (Flonase Nasal [place] 50mcg*) 1 spray BOTH NARES DAILY [facility] Last Admin: 11/19/18 07:33 Dose: Not Given Gabapentin (Neurontin Cap(*)) 300 mg PO QAM [facility] Last Admin: 11/19/18 07:33 Dose: Not Given Gabapentin (Neurontin Cap(*)) 600 mg PO BEDTIME [facility] Last Admin: 11/18/18 20:51 Dose: 600 mg Magnesium Hydroxide (Milk Of Magnesia Liq*) 30 ml PO Q6H PRN PRN Reason: CONSTIPATION Last Admin: 11/18/18 08:41 Dose: 30 ml Metoprolol Succinate (Toprol Xl Tab*) 25 mg PO QPM [facility] Last Admin: 11/18/18 17:30 Dose: Not Given Mometasone Furoate (Asmanex 220 Mcg Mdi *) 1 puff INH QPM PRN PRN Reason: WHEEZING Multivitamins/Minerals (Theragran/Minerals Tab*) 1 tab PO DAILY [facility] Last Admin: 11/19/18 07:34 Dose: Not Given Ondansetron HCl (Zofran Inj*) 4 mg IV Q6H PRN PRN Reason: NAUSEA/VOMITING Oxycodone HCl (Roxycodone Tab*) 5 mg PO Q6H PRN PRN Reason: PAIN SCALE 6-10 Primidone (Mysoline Tab(*)) 150 mg PO BID [facility] Last Admin: 11/19/18 07:34 Dose: Not Given Senna (Senokot Tab*) 2 tab PO BEDTIME PRN PRN Reason: CONSTIPATION Topiramate (Topamax(*)) 50 mg PO BID [facility] Last Admin: 11/19/18 07:34 Dose: Not Given Objective Vital Signs: Temp Pulse Resp BP Pulse Ox 99.6 F 122 24 95/63 94 11/19/18 07:21 11/19/18 09:01 11/19/18 08:45 11/19/18 08:59 11/19/18 09:01 Oxygen Devices in Use Now: None Appearance: elderly female, lying, talkative, comfortable Eyes: No Scleral Icterus, PERRLA Ears/Nose/Mouth/Throat: Clear Oropharnyx, Mucous Membranes Moist Neck: No Thyroid Enlargement, Masses Respiratory: Symmetrical Chest Expansion and Respiratory Effort, Clear to Auscultation Cardiovascular: - - irregular, tachycardic, mid peaking SM RUSB Abdominal: NL Sounds; No Tenderness; No Distention, No Hepatosplenomegaly Extremities: No Edema Skin: No Rash or Ulcers Neurological: Alert and Oriented x 3 Laboratory Results: 11/19/18 05:04 11/19/18 05:04 INR (Anticoag Therapy) 1.11 (0.82-1.09) H 11/13/18 15:30 Total Bilirubin 0.50 mg/dL (0.2-1.0) 11/13/18 15:30 AST 58 U/L (13-39) H 11/13/18 15:30 ALT 29 U/L (7-52) 11/13/18 15:30 Alkaline Phosphatase 79 U/L (34-104) 11/13/18 15:30 CK-MB (CK-2) 17.2 ng/mL (0.6-6.3) H 11/14/18 05:08 B-Natriuretic Peptide 501 pg/mL (<=100) H 11/13/18 15:31 Total Protein 7.1 g/dL (6.4-8.9) 11/13/18 15:30 Albumin 3.6 g/dL (3.2-5.2) 11/13/18 15:30 Globulin 3.5 g/dL (2-4) 11/13/18 15:30 Albumin/Globulin Ratio 1.0 (1-3) 11/13/18 15:30 EKG Data: Monitor: afib, RVR 125 bpm approx. Assessment/Plan 83 yo female with long hx PAF. Was in NSR on amiodarone until 2 days prior to admission. Fell, no anticoagulation for several days. Now s/p repair of hip fracture and remains in afib. The patient has historically not tolerated afib, it drops her EF and BP. OBI guided CV planned for today and succesful. OBI revealed mod+ on prelim and depressed EF, moderate TR (prelim report). For AFIB: s/p CV, continue Pradaxa, metoprolol and amiodarone at current doses. BP: Improved immediately post CV, currently sbp 114. CM: Will likely improve post CV, continue BB for now.
--- NOTE | 2018-11-19 10:24 | CARD ---
ELECTRICAL CARDIOVERSION: DATE OF PROCEDURE: 11/19/18 PROCEDURE: Electrical cardioversion. PRE-PROCEDURE DIAGNOSES: Atrial fibrillation with a rapid ventricular rate and hypotension. POST-PROCEDURE DIAGNOSES: Atrial fibrillation with a rapid ventricular rate and hypotension. The patient had fallen and her anticoagulant was not taken for 4 days, and therefore, we elected to d o a transesophageal echo-guided cardioversion. The OBI is documented separately. The indications, r isks, and benefits of both procedures were discussed with the patient and she was amenable to proceed ing. DESCRIPTION OF PROCEDURE: A time-out was called for both procedures. The patient received a total o f 5 mg of Versed and 25 mcg of fentanyl for the OBI and she required an additional milligram of Verse d for cardioversion (total 6 mg of Versed, 25 mcg of fentanyl). Using AP patches, 120 joules of energy was delivered across the chest wall with successful cardiovers ion. Currently, she is in sinus rhythm at 85 beats per minute. Oxygen saturations 96% on 2 L nasal cannula and blood pressure 122/66. There were no complications to the cardioversion. The patient tra nsiently dropped oxygen saturation with sedation prior to the OBI and responded to nasal prongs. CONCLUSION: Successful electrical cardioversion. [id number]/[facility] #: [id number]
[2018-11-19] MEDS ORDERED: Amiodarone TAB* 200 MG PO ONE (11:30)
--- NOTE | 2018-11-19 11:35 | TEE ---
*[facility]* [place] [address] Fax #: [phone] Transesophageal Echocardiogram Patient: Rosalina Velasquez : 1935 Study Date: 11/19/2018 Age: 83 Gender: F HR: 116 bpm Height: 64 in /162.6 cm BSA: 1.65 m^2 Weight: 131.7 lb /59.9 kg BMI: 22.7 kg/m^2 *Fish Seiner: * Gracia Lambert [facility] *Referring Physician: * Rajani Pierson *Reading Physician: * Marsha Prado MD Indications: Atrial Fibrillation. History: Atrial fibrillation. Aortic stenosis. Mitral stenosis. Functional status: Following treatment plan for sleep apnea. Risk factors: Hypertension. Labs, prior tests, procedures, and surgery: Electrophysiology study with ablation. Conclusions Summary: 1. Left ventricle: Systolic function is mildly reduced. The estimated ejection fraction is 45-50%, by visual assessment. 2. Right ventricle: Systolic function is mildly reduced by visual assessment. 3. Left atrium: The atrium is severely dilated. There is no evidence of a thrombus in the atrial cavity or appendage. 4. Right atrium: The atrium is severely dilated. 5. Mitral valve: The findings are consistent with mild stenosis. There is mild to moderate regurgitation. 6. Aortic valve: The findings are consistent with moderate to severe stenosis. The planimetered valve area is 1.02 cm^2. The mean systolic gradient is 20.9 mm Hg. The peak systolic gradient is 40.2 mm Hg. The LVOT to aortic valve VTI ratio is 0.28. The valve area by the velocity-time integral method is 0.85 cm^2. The valve area by the peak velocity method is 0.98 cm^2. 7. Tricuspid valve: There is moderate regurgitation. 8. Descending aorta: The descending aorta is mildly calcified. 9. Pulmonary arteries: The peak pressure during systole by Doppler is 56.0 mm Hg. Study data: Diagnostic Transesophageal Echocardiogram Consent: The risks and benefits of the procedure, including alternatives were discussed with the patient and/or their health care sales representative canvas products and written informed consent was obtained. Procedure: Initial setup: The patient was brought to the laboratory in the fasting state.Intravenous access was obtained. Surface ECG leads, heart rate, heart rhythm, blood pressure measurements, pulse oximetric signals, and mainstream end-tidal CO2 tracings were monitored throughout the procedure. Sedation. Moderate sedation was administered by nursing staff. History and physical as well as labs were reviewed. An oral bite block was inserted for protection of oral dentition. The patient was placed in the left lateral decubitus position. Topical anesthesia was obtained using viscous lidocaine. A transesophageal probe was inserted by the attending formation fracturing operator. Transesophageal echocardiography was performed, image quality was good, and all standard views were attempted within the limitations of patient tolerance and safety. Multiple 2D, color flow Doppler and spectral Doppler images were obtained. The transesophageal probe was removed. A bubble study was performed. Location: Procedure room. Patient status: Inpatient. Patient room number: 335. Study completion: The patient tolerated the procedure well. There were no complications. Administered medications: Midazolam, 4mg. Fentanyl, 25mcg. Findings Left ventricle: The cavity size is normal. Systolic function is mildly reduced. The estimated ejection fraction is 45-50%, by visual assessment. Wall motion is normal; there are no regional wall motion abnormalities. Left ventricular diastolic function parameters are indeterminate. Right ventricle: The cavity size is normal. Systolic function is mildly reduced by visual assessment. Systolic pressure is moderately increased. Left atrium: The atrium is severely dilated. Emptying velocity is low normal. There is no evidence of a thrombus in the atrial cavity or appendage. Right atrium: The atrium is severely dilated. Atrial septum: No defect or patent foramen ovale is identified. A PFO is not demonstrated by color Doppler or agitated saline contrast. Bubble study image 56. Mitral valve: The leaflets are mildly thickened. Mobility is mildly restricted. The findings are consistent with mild stenosis. There is mild to moderate regurgitation. Aortic valve: The leaflets are moderately thickened. Noncoronary cusp mobility is severely restricted. The findings are consistent with moderate to severe stenosis. There is trace regurgitation. Tricuspid valve: There is no evidence of stenosis. There is moderate regurgitation. Pulmonic valve: There is no evidence of stenosis. There is trace regurgitation. Aorta: Aortic arch: The aortic arch is mildly calcified. Descending aorta: The descending aorta is mildly calcified. The aortic root is not dilated. The ascending aorta is normal. Pericardium: There is no significant pericardial effusion. Pulmonary arteries: The main pulmonary artery is normal-sized. Systolic pressure is moderately increased. Systemic veins: Inferior vena cava: Well visualized. Superior vena cava: Well visualized. Normal Bicaval view. Pulmonary veins: Visualization of the pulmonary venous anatomy is incomplete, but a significant abnormality is unlikely. 3 of 4 visualized. Measurements LVOT Value Ref Mitral valve continued Value Ref Diam, S 2.02 cm --------- Decel time 145 ms --------- Area 3.2 cm^2 --------- PHT 28 ms --------- Peak terrence, S 0.95 m/sec --------- Mean grad, D 5.1 mm Hg --------- VTI, S 19.5 cm --------- Peak grad, D 10.6 mm Hg --------- Peak grad, S 4 mm Hg --------- Peak E/A ratio 168.03 --------- Mean grad, S 2 mm Hg --------- MVA 2.3 cm^2 --------- SV 62 ml --------- MVA, LVOT cont 2.1 cm^2 --------- SV/bsa 38 ml/m^2 --------- MR peak v 4.69 m/sec --------- Right ventricle Value Ref Tricuspid valve Value Ref Pressure, S 56 mm Hg --------- TR peak v (H) 3.45 m/sec <=2.8 Peak RV-RA grad, 48 mm Hg --------- Right atrium Value Ref S Estimated RAP 8 mm Hg --------- Aortic root Value Ref Aortic valve Value Ref Root diam 1.8 cm <3.9 Marylou diam, S (L) 1.8 cm 1.9 - 2.7 S-T junct diam, 3.2 cm 2.0 - 3.2 EDIE, plan 1.02 cm^2 --------- ED Peak v, S 3.17 m/sec --------- S-T junct 1.9 cm/m^2 1.1 - 1.9 VTI, S 69.8 cm --------- diam/bsa, ED Mean grad, S 20.9 mm Hg --------- Peak grad, S 40.2 mm Hg --------- Ascending aorta Value Ref LVOT/AV, VTI ratio 0.28 --------- AAo AP diam, S 3.1 cm --------- EDIE, VTI 0.85 cm^2 --------- EDIE, Vmax 0.98 cm^2 --------- Pulmonary artery Value Ref Pressure, S 56.0 mm Hg --------- Mitral valve Value Ref Peak E 1.29 m/sec --------- Pulmonary veins Value Ref Peak A 0.01 m/sec --------- Peak v, S 0.16 m/sec --------- VTI leaflet coapt 30.5 cm --------- Peak v, D 0.31 m/sec --------- Peak S/D ratio 0.53 --------- Peak A rev v 0.14 m/sec --------- Legend: (L) and (H) melanie values outside specified reference range. Prepared and electronically signed by Marsha Prado MD 11/19/2018 11:35
--- NOTE | 2018-11-19 14:22 | PN ---
Subjective Date of Service: 11/19/18 Interval History: Patient is feeling tired today. Patient denies CP, SOB, palpitations, N/V, abdominal pain, diarrhea, dysuria, dizziness, or other pain. Patient does not yet notice any difference in energy or exercise tolerance since her cardioversion. Patient is encouraged to engage in PT. Family History: Unchanged from Admission Social History: Unchanged from Admission Past Medical History: Unchanged from Admission Objective Active Medications: Acetaminophen (Tylenol Tab*) 650 mg PO Q8H PRN PRN Reason: PAIN SCALE 1-5 Last Admin: 11/18/18 17:21 Dose: 650 mg Amiodarone HCl (Cordarone Tab*) 200 mg PO DAILY [facility] Calcium/Vitamin D (Oscal D Tab 250/125*) 2 tab PO BID [facility] Last Admin: 11/19/18 07:33 Dose: Not Given Clonazepam (Klonopin Tab(*)) 0.125 mg PO BID PRN PRN Reason: TREMORS Cyanocobalamin (Vitamin B12 Tab*) 500 mcg PO QAM [facility] Last Admin: 11/19/18 07:33 Dose: Not Given Dabigatran (Pradaxa Cap(Nf)) 150 mg PO BID [facility] Last Admin: 11/19/18 07:31 Dose: 150 mg Ferrous Gluconate (Fergon Tab*) 324 mg PO DAILY [facility] Last Admin: 11/19/18 07:33 Dose: Not Given Fluticasone Propionate (Flonase Nasal Winder 50mcg*) 1 spray BOTH NARES DAILY [facility] Last Admin: 11/19/18 07:33 Dose: Not Given Gabapentin (Neurontin Cap(*)) 300 mg PO QAM [facility] Last Admin: 11/19/18 07:33 Dose: Not Given Gabapentin (Neurontin Cap(*)) 600 mg PO BEDTIME [facility] Last Admin: 11/18/18 20:51 Dose: 600 mg Magnesium Hydroxide (Milk Of Magnesia Liq*) 30 ml PO Q6H PRN PRN Reason: CONSTIPATION Last Admin: 11/18/18 08:41 Dose: 30 ml Metoprolol Succinate (Toprol Xl Tab*) 25 mg PO QPM [facility] Last Admin: 11/18/18 17:30 Dose: Not Given Mometasone Furoate (Asmanex 220 Mcg Mdi *) 1 puff INH QPM PRN PRN Reason: WHEEZING Multivitamins/Minerals (Theragran/Minerals Tab*) 1 tab PO DAILY [facility] Last Admin: 11/19/18 07:34 Dose: Not Given Ondansetron HCl (Zofran Inj*) 4 mg IV Q6H PRN PRN Reason: NAUSEA/VOMITING Oxycodone HCl (Roxycodone Tab*) 5 mg PO Q6H PRN PRN Reason: PAIN SCALE 6-10 Primidone (Mysoline Tab(*)) 150 mg PO BID [facility] Last Admin: 11/19/18 07:34 Dose: Not Given Senna (Senokot Tab*) 2 tab PO BEDTIME PRN PRN Reason: CONSTIPATION Topiramate (Topamax(*)) 50 mg PO BID [facility] Last Admin: 11/19/18 07:34 Dose: Not Given Vital Signs - 8 hr 11/19/18 11/19/18 11/19/18 07:21 08:00 08:45 Temperature 99.6 F Pulse Rate 91 120 Respiratory 18 18 24 Rate Blood Pressure 82/49 99/63 (mmHg) O2 Sat by Pulse 91 94 Oximetry 11/19/18 11/19/18 11/19/18 08:59 09:01 09:14 Temperature Pulse Rate 121 122 121 Respiratory Rate Blood Pressure 95/63 105/54 (mmHg) O2 Sat by Pulse 94 94 92 Oximetry 11/19/18 11/19/18 11/19/18 09:29 09:31 09:36 Temperature Pulse Rate 118 125 119 Respiratory 18 Rate Blood Pressure 93/53 96/55 96/62 (mmHg) O2 Sat by Pulse 92 92 97 Oximetry 11/19/18 11/19/18 11/19/18 09:41 09:46 09:51 Temperature Pulse Rate 126 118 134 Respiratory 38 22 22 Rate Blood Pressure 107/69 111/74 101/66 (mmHg) O2 Sat by Pulse 100 100 97 Oximetry 11/19/18 11/19/18 11/19/18 09:56 10:00 10:01 Temperature Pulse Rate 88 83 82 Respiratory 18 20 22 Rate Blood Pressure 122/66 114/57 (mmHg) O2 Sat by Pulse 100 96 95 Oximetry 11/19/18 11/19/18 11/19/18 10:06 10:11 10:16 Temperature Pulse Rate 82 80 79 Respiratory 20 21 23 Rate Blood Pressure 110/55 120/56 102/52 (mmHg) O2 Sat by Pulse 99 100 100 Oximetry 11/19/18 11/19/18 11/19/18 10:31 10:46 10:52 Temperature Pulse Rate 79 77 78 Respiratory 18 20 20 Rate Blood Pressure 97/48 98/50 106/50 (mmHg) O2 Sat by Pulse 89 91 91 Oximetry 11/19/18 11/19/18 11/19/18 11:00 11:01 11:31 Temperature Pulse Rate 78 79 78 Respiratory 19 22 24 Rate Blood Pressure 107/54 119/59 (mmHg) O2 Sat by Pulse 89 89 96 Oximetry 11/19/18 11:45 Temperature 98.4 F Pulse Rate 76 Respiratory 20 Rate Blood Pressure 122/48 (mmHg) O2 Sat by Pulse 99 Oximetry Oxygen Devices in Use Now: Nasal Cannula Appearance: Patient is an 83yo female who appears stated age and is sitting in the bed in NAD. Eyes: No Scleral Icterus, PERRLA Ears/Nose/Mouth/Throat: NL Teeth, Lips, Gums, Clear Oropharnyx, Mucous Membranes Moist Neck: NL Appearance and Movements; NL JVP, Trachea Midline Respiratory: Symmetrical Chest Expansion and Respiratory Effort, Clear to Auscultation Cardiovascular: NL Sounds; No Murmurs; No JVD, RRR, - - Trace B/L LE edema. Abdominal: NL Sounds; No Tenderness; No Distention, No Hepatosplenomegaly Lymphatic: No Cervical Adenopathy Extremities: No Clubbing, Cyanosis, - - Right hip dressing CDI. Skin: No Nodules or Sclerosis Neurological: Alert and Oriented x 3, NL Sensation, NL Muscle Strength and Tone , - - CN II-XII intact. 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 Patient is S/P ORIF right hip and OBI guided cardioversion. - Patient Problems (1) Closed right hip fracture Current Visit: Yes Status: Acute Code(s): S72.001A - FRACTURE OF UNSP PART OF NECK OF RIGHT FEMUR, INIT SNOMED Code(s): 883743631 Comment: - ORIF 11/14. - Pain control - Bowel regimen - PT/OT for placement - Appreciate ortho input - Still needing Easy Stand to transfer. - DVT Prophylaxis with home Pradaxa. (2) Atrial fibrillation Current Visit: Yes Status: Acute Code(s): I48.91 - UNSPECIFIED ATRIAL FIBRILLATION SNOMED Code(s): 16677087 Comment: - Recurrance of afib and possible RVR, with history of ablations and cardioversions. - Present before admission - On amiodarone and dabigatran - Hard to control rates and hypotension. OBI cardioversion today. - Increase amiodarone for rhythm control per cardiology until D/C. Extra dose given today. (3) Aortic stenosis Current Visit: Yes Status: Acute Code(s): I35.0 - NONRHEUMATIC AORTIC (VALVE ) STENOSIS SNOMED Code(s): 47637894 Comment: - F/U outpatient with Cardiology for ongoing monitoring and consideration of replacement. - Not in overt CHF. (4) Essential tremor Current Visit: Yes Status: Acute Code(s): G25.0 - ESSENTIAL TREMOR SNOMED Code(s): 609412338 Comment: - This is the indication for her topiramate and primidone. (5) Heart failure with reduced ejection fraction Current Visit: Yes Status: Acute Code(s): I50.20 - UNSPECIFIED SYSTOLIC ( CONGESTIVE) HEART FAILURE SNOMED Code(s): 548445412 Comment: - Tachy-induced. - Holding home furosemide and spironolactone given hypovolemia on presentation and low BPs during admission, hopefully resume tomorrow. - Now appears slightly hypervolemic, not in acute exacerbation. (6) Rhabdomyolysis Current Visit: Yes Status: Acute Code(s): M62.82 - RHABDOMYOLYSIS SNOMED Code(s): 574163757 Comment: - Present on admission from prolonged down-time. - Improved, no evidence of ATN. (7) Full code status Current Visit: Yes Status: Acute Code(s): Z78.9 - OTHER SPECIFIED HEALTH STATUS SNOMED Code(s): 198187946 Status and Disposition: Will need rehab at discharge, [facility]
--- NOTE | 2018-11-19 16:21 | PN ---
Progress Note - Progress Note Date of Service: 11/19/18 SOAP: Subjective: []Pt seen at bedside. She has no complaints today. R hip nonpainful. Denies CP, SOB, dizziness, nausea. Objective: []Gen: NAD RLE: Dressing changed, Incisions CDI no active drainage, scant serosanguinous drainage on dressings. Thigh is soft, DF/PF intact, DP2+, sensation intact to light touch distally. Calves supple and nontender without erythema, edema or palpable cords Assessment: SP ORIF right hip Plan: 1) PT/OT- WBAT 2) hospitalist co-managing 3) DVT prophy: on pradaxa 4) daily dry sterile dressing change 5) requires rehab Vital Signs Temp 99.5 F 11/19/18 15:16 Pulse 79 11/19/18 15:16 Resp 22 11/19/18 15:16 BP 113/48 11/19/18 15:16 Pulse Ox 97 11/19/18 15:16 Intake & Output 11/18/18 11/19/18 11/19/18 18:59 06:59 18:59 Intake Total 960 180 350 Output Total 100 134 8036 Balance 710 -620 -650 Weight 131 lb Intake: IV Fluids 500 200 NS (0.9%) 500 Oral 460 180 150 Output: Urine 224 955 1994 Other: # Bowel Movements 0 0 Estimated Stool Amount Large Laboratory Last Values WBC 5.4 10^3/uL (3.5-10.8) 11/19/18 05:04 RBC 2.46 10^6 /uL (3.70-4.87) L 11/19/18 05:04 Hgb 8.0 g/dL (12.0-16.0) L 11/19/18 05:04 Hct 24 % (35-47) L 11/19/18 05:04 MCV 97 fL (80-97) 11/19/18 05:04 MCH 33 pg (27-31) H 11/19/18 05:04 MCHC 34 g/dL (31-36) 11/19/18 05:04 RDW 16 % (10-15) H 11/19/18 05:04 Plt Count 172 10^3/uL (150-450) 11/19/18 05:04 MPV 7.3 fL (7.4-10.4) L 11/19/18 05:04 Neut % (Auto) 65.6 % 11/16/18 04:50 Lymph % (Auto) 23.5 % 11/16/18 04:50 [place] % (Auto) 8.5 % 11/16/18 04:50 Eos % (Auto) 2.1 % 11/16/18 04:50 Baso % (Auto) 0.3 % 11/16/18 04:50 Absolute Neuts (auto) 3.7 10^3/ul (1.5-7.7) 11/16/18 04:50 Absolute Lymphs (auto) 1.3 10^3/ul (1.0-4.8) 11/16/18 04:50 Absolute Monos (auto) 0.5 10^3/ul (0-0.8) 11/16/18 04:50 Absolute Eos (auto) 0.1 10^3/ul (0-0.6) 11/16/18 04:50 Absolute Basos (auto) 0.0 10^3/ul (0-0.2) 11/16/18 04:50 Absolute Nucleated RBC 0.0 10^3/ul 11/16/18 04:50 Nucleated RBC % 0.1 11/16/18 04:50 INR (Anticoag Therapy) 1.11 (0.82-1.09) H 11/13/18 15:30 Sodium 136 mmol/L (135-145) 11/19/18 05:04 Potassium 4.1 mmol/L (3.5-5.0) 11/19/18 05:04 Chloride 107 mmol/L (101-111) 11/19/18 05:04 Carbon Dioxide 27 mmol/L (22-32) 11/19/18 05:04 Anion Gap 2 mmol/L (2-11) 11/19/18 05:04 BUN 13 mg/dL (6-24) 11/19/18 05:04 Creatinine 0.67 mg/dL (0.51-0.95) 11/19/18 05:04 Est GFR ( Amer) 101.2 (>60) 11/19/18 05:04 Est GFR (Non-Af Amer) 83.7 (>60) 11/19/18 05:04 BUN/Creatinine Ratio 19.4 (8-20) 11/19/18 05:04 Glucose 97 mg/dL (70-100) 11/19/18 05:04 Lactic Acid 1.1 mmol/L (0.5-2.0) 11/13/18 15:31 Calcium 8.2 mg/dL (8.6-10.3) L 11/19/18 05:04 Magnesium 2.0 mg/dL (1.9-2.7) 11/17/18 06:44 Total Bilirubin 0.50 mg/dL (0.2-1.0) 11/13/18 15:30 AST 58 U/L (13-39) H 11/13/18 15:30 ALT 29 U/L (7-52) 11/13/18 15:30 Alkaline Phosphatase 79 U/L (34-104) 11/13/18 15:30 Total Creatine Kinase 889 U/L (10-223) H 11/14/18 05:08 CK-MB (CK-2) 17.2 ng/mL (0.6-6.3) H 11/14/18 05:08 C-Reactive Protein 152.30 mg/L (<8.01) H 11/13/18 15:30 B-Natriuretic Peptide 501 pg/mL (<=100) H 11/13/18 15:31 Total Protein 7.1 g/dL (6.4-8.9) 11/13/18 15:30 Albumin 3.6 g/dL (3.2-5.2) 11/13/18 15:30 Globulin 3.5 g/dL (2-4) 11/13/18 15:30 Albumin/Globulin Ratio 1.0 (1-3) 11/13/18 15:30 Lipase 19 U/L (11.0-82.0) 11/13/18 15:30 Folate 6.81 ng/mL (>3.99) 11/16/18 04:50 Urine Color Taryn 11/13/18 15:30 Urine Appearance Cloudy 11/13/18 15:30 Urine pH 5.0 (5-9) 11/13/18 15:30 Ur Specific [place] 1.027 (1.010-1.030) 11/13/18 15:30 Urine Protein 1+(30 mg/dl) (Negative) A 11/13/18 15:30 Urine Ketones 1+ (Negative) A 11/13/18 15:30 Urine Blood Negative (Negative) 11/13/18 15:30 Urine Nitrate Negative (Negative) 11/13/18 15:30 Urine Bilirubin Negative (Negative) 11/13/18 15:30 Urine Urobilinogen Negative (Negative) 11/13/18 15:30 Ur Leukocyte Esterase Negative (Negative) 11/13/18 15:30 Urine WBC (Auto) Absent (Absent) 11/13/18 15:30 Urine RBC (Auto) Absent (Absent) 11/13/18 15:30 Ur Squamous Epith Cells Present (Absent) A 11/13/18 15:30 Ur Transition Epith Cell Cancelled 11/14/18 17:00 Ur Renal Epithelial Cell Cancelled 11/14/18 17:00 Calcium Carbonate Cryst Cancelled 11/14/18 17:00 Calcium Phosphate Cryst Cancelled 11/14/18 17:00 Calcium Oxalate Crystal Cancelled 11/14/18 17:00 Leucine Crystals Cancelled 11/14/18 17:00 Cystine Crystals Cancelled 11/14/18 17:00 Uric Acid Crystals Cancelled 11/14/18 17:00 Triple Phos Crystals Cancelled 11/14/18 17:00 Tyrosine Crystals Cancelled 11/14/18 17:00 Amorphous Crystals Cancelled 11/14/18 17:00 Urine Bacteria Absent (Absent) 11/13/18 15:30 Cellular Casts Cancelled 11/14/18 17:00 Epithelial Casts Cancelled 11/14/18 17:00 Fatty Casts Cancelled 11/14/18 17:00 Hyaline Casts Cancelled 11/14/18 17:00 Granular Casts Cancelled 11/14/18 17:00 Waxy Casts Cancelled 11/14/18 17:00 Broad Casts Cancelled 11/14/18 17:00 RBC Casts Cancelled 11/14/18 17:00 WBC Casts Cancelled 11/14/18 17:00 Urine Trichomonas Cancelled 11/14/18 17:00 Urine Yeast Cancelled 11/14/18 17:00 Urine Sperm Cancelled 11/14/18 17:00 Ur Oval Fat Bodies Cancelled 11/14/18 17:00 Urinalysis Comment Cancelled 11/14/18 17:00 Urine Glucose Negative (Negative) 11/13/18 15:30 Urine Ascorbic Acid * (Negative) A 11/13/18 15:30 Blood Type A Positive 11/14/18 05:08 Antibody Screen Negative 11/14/18 05:08 Crossmatch See Detail 11/14/18 05:08
[2018-11-19] MEDS: Metoprolol Succinate XL TAB* 25 MG PO SCH (17:53)
[2018-11-19] MEDS: Acetaminophen TAB* 325 MG PO PRN (22:25)
[2018-11-20 06:06] LABS: ABS Eosinophils 0.1 10^3/ul (0-0.6); ABS Lymphocytes 1.3 10^3/ul (1.0-4.8); ABS Monocytes 0.5 10^3/ul (0-0.8); ABS Neutrophils 3.2 10^3/ul (1.5-7.7); Eosinophil % 2.7 %; Hematocrit 23 % (35-47); Hemoglobin 7.7 g/dL (12.0-16.0); Lymphocyte % 25.4 %; Mean Corpuscular HGB Conc 34 g/dL (31-36); Mean Corpuscular Hemoglobin 33 pg (27-31); Mean Corpuscular Volume 98 fL (80-97); Mean Platelet Volume 7.4 fL (7.4-10.4); Platelet Count 163 10^3/uL (150-450); Red Cell Distribution Width 16 % (10-15); White Blood Count 5.2 10^3/uL (3.5-10.8)
[2018-11-20 06:24] LABS: BUN/Creatinine Ratio 22.6 (8-20); EGFR African American 110.7 (>60); EGFR Non-African American 91.5 (>60); Magnesium 2.1 mg/dL (1.9-2.7); Potassium 4.2 mmol/L (3.5-5.0)
[2018-11-20] MEDS: Calcium/Vitamin D TAB 250/125* TAB PO SCH ×2 (10:09→20:08)
[2018-11-20] MEDS: CMC:Dabigatran CAP(NF) 150 MG CAP PO SCH ×2 (10:10→20:10)
[2018-11-20] MEDS: Topiramate TAB(*) 25 MG PO SCH ×2 (10:11→20:10)
[2018-11-20] MEDS: Cyanocobalamin TAB* 500 MCG PO SCH (10:11)
[2018-11-20] MEDS: Gabapentin CAP(*) 300 MG PO SCH ×2 (10:12→20:09)
[2018-11-20] MEDS: Ferrous Gluconate TAB* 324 MG TAB PO SCH (10:12)
[2018-11-20] MEDS: Fluticasone NASAL SPRAY 50MCG* 16 gm SPRAY BTL BOTH NARES SCH (10:13)
[2018-11-20] MEDS: Primidone TAB(*) 50 MG PO SCH ×2 (10:13→20:08)
[2018-11-20] MEDS: Multivitamins/Minerals TAB PO SCH (10:13)
[2018-11-20] MEDS: Amiodarone TAB* 200 MG PO SCH (10:14)
--- NOTE | 2018-11-20 13:36 | PN ---
Subjective Date of Service: 11/20/18 Interval History: Patient is feeling ok today. Patient denies Cp, SOB, palpitations, F/C, N/V, abdominal pain, diarrhea, dysuria, or other pain. Patient has no dizziness, patient has no increase in energy level today. Family History: Unchanged from Admission Social History: Unchanged from Admission Past Medical History: Unchanged from Admission Objective Active Medications: Acetaminophen (Tylenol Tab*) 650 mg PO Q8H PRN PRN Reason: PAIN SCALE 1-5 Last Admin: 11/19/18 22:25 Dose: 650 mg Amiodarone HCl (Cordarone Tab*) 200 mg PO DAILY [facility] Last Admin: 11/20/18 10:14 Dose: 200 mg Calcium/Vitamin D (Oscal D Tab 250/125*) 2 tab PO BID [facility] Last Admin: 11/20/18 10:09 Dose: 2 tab Clonazepam (Klonopin Tab(*)) 0.125 mg PO BID PRN PRN Reason: TREMORS Cyanocobalamin (Vitamin B12 Tab*) 500 mcg PO QAM [facility] Last Admin: 11/20/18 10:11 Dose: 500 mcg Dabigatran (Pradaxa Cap(Nf)) 150 mg PO BID [facility] Last Admin: 11/20/18 10:10 Dose: 150 mg Ferrous Gluconate (Fergon Tab*) 324 mg PO DAILY [facility] Last Admin: 11/20/18 10:12 Dose: 324 mg Fluticasone Propionate (Flonase Nasal [place] 50mcg*) 1 spray BOTH NARES DAILY [facility] Last Admin: 11/20/18 10:13 Dose: 1 spray Gabapentin (Neurontin Cap(*)) 300 mg PO QAM [facility] Last Admin: 11/20/18 10:12 Dose: 300 mg Gabapentin (Neurontin Cap(*)) 600 mg PO BEDTIME [facility] Last Admin: 11/19/18 20:46 Dose: 600 mg Magnesium Hydroxide (Milk Of Magnesia Liq*) 30 ml PO Q6H PRN PRN Reason: CONSTIPATION Last Admin: 11/18/18 08:41 Dose: 30 ml Metoprolol Succinate (Toprol Xl Tab*) 25 mg PO QPM [facility] Last Admin: 11/19/18 17:53 Dose: 25 mg Mometasone Furoate (Asmanex 220 Mcg Mdi *) 1 puff INH QPM PRN PRN Reason: WHEEZING Multivitamins/Minerals (Theragran/Minerals Tab*) 1 tab PO DAILY [facility] Last Admin: 11/20/18 10:13 Dose: 1 tab Ondansetron HCl (Zofran Inj*) 4 mg IV Q6H PRN PRN Reason: NAUSEA/VOMITING Oxycodone HCl (Roxycodone Tab*) 5 mg PO Q6H PRN PRN Reason: PAIN SCALE 6-10 Primidone (Mysoline Tab(*)) 150 mg PO BID [facility] Last Admin: 11/20/18 10:13 Dose: 150 mg Senna (Senokot Tab*) 2 tab PO BEDTIME PRN PRN Reason: CONSTIPATION Topiramate (Topamax(*)) 50 mg PO BID [facility] Last Admin: 11/20/18 10:11 Dose: 50 mg Vital Signs - 8 hr 11/20/18 11/20/18 11/20/18 07:37 08:00 10:12 Temperature 98.5 F Pulse Rate 66 Respiratory 16 16 16 Rate Blood Pressure 106/45 (mmHg) O2 Sat by Pulse 93 Oximetry 11/20/18 11/20/18 11:11 12:15 Temperature 98.7 F 98.9 F Pulse Rate 73 75 Respiratory 18 16 Rate Blood Pressure 118/41 105/38 (mmHg) O2 Sat by Pulse 95 94 Oximetry Oxygen Devices in Use Now: None Appearance: Patient is an 83yo female who appears stated age and is sitting in the bed in [facility]. Eyes: No Scleral Icterus, PERRLA Ears/Nose/Mouth/Throat: NL Teeth, Lips, Gums, Clear Oropharnyx, Mucous Membranes Moist Neck: NL Appearance and Movements; NL JVP, Trachea Midline Respiratory: Symmetrical Chest Expansion and Respiratory Effort, Clear to Auscultation Cardiovascular: NL Sounds; No Murmurs; No JVD, RRR, No Edema Abdominal: NL Sounds; No Tenderness; No Distention, No Hepatosplenomegaly Lymphatic: No Cervical Adenopathy Extremities: No Clubbing, Cyanosis, - - Right hip incision covered with bulky dressing. Skin: No Nodules or Sclerosis Neurological: Alert and Oriented x 3, NL Sensation, NL Muscle Strength and Tone , - - CN II-XII intact. 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 Patient is S/P ORIF right hip and OBI guided cardioversion. - Patient Problems (1) Closed right hip fracture Current Visit: Yes Status: Acute Code(s): S72.001A - FRACTURE OF UNSP PART OF NECK OF RIGHT FEMUR, INIT SNOMED Code(s): 003062221 Comment: - ORIF 11/14. - Pain control - Bowel regimen - PT/OT for placement pending - Appreciate ortho input - Still needing Easy Stand to transfer. - DVT Prophylaxis with home Pradaxa. - Transfuse today and then recheck H/H. (2) Atrial fibrillation Current Visit: Yes Status: Acute Code(s): I48.91 - UNSPECIFIED ATRIAL FIBRILLATION SNOMED Code(s): 45887541 Comment: - Recurrance of afib and possible RVR, with history of ablations and cardioversions. - Present before admission - On amiodarone and dabigatran - Hard to control rates and hypotension. OBI cardioversion successful. - Increase amiodarone for rhythm control per cardiology until D/C. Extra dose given. - Needs at least 30 days of Pradaxa. (3) Aortic stenosis Current Visit: Yes Status: Acute Code(s): I35.0 - NONRHEUMATIC AORTIC (VALVE ) STENOSIS SNOMED Code(s): 53914580 Comment: - F/U outpatient with Cardiology for ongoing monitoring and consideration of replacement. - Not in overt CHF. (4) Essential tremor Current Visit: Yes Status: Acute Code(s): G25.0 - ESSENTIAL TREMOR SNOMED Code(s): 230602780 Comment: - This is the indication for her topiramate and primidone. (5) Heart failure with reduced ejection fraction Current Visit: Yes Status: Acute Code(s): I50.20 - UNSPECIFIED SYSTOLIC ( CONGESTIVE) HEART FAILURE SNOMED Code(s): 236436560 Comment: - Tachy-induced. - Holding home furosemide and spironolactone given hypovolemia on presentation and low BPs during admission, Resume today. (6) Rhabdomyolysis Current Visit: Yes Status: Acute Code(s): M62.82 - RHABDOMYOLYSIS SNOMED Code(s): 265882965 Comment: - Present on admission from prolonged down-time. - Improved, no evidence of ATN. (7) Full code status Current Visit: Yes Status: Acute Code(s): Z78.9 - OTHER SPECIFIED HEALTH STATUS SNOMED Code(s): 288855568 Status and Disposition: Will need rehab at discharge, D/C to [place].
[2018-11-20] MEDS: Acetaminophen TAB* 325 MG PO PRN ×2 (14:33→22:15)
[2018-11-20 16:43] LABS: Folate 9.44 ng/mL (>3.99)
[2018-11-20] MEDS: Furosemide TAB* 20 MG PO SCH (17:35)
[2018-11-20] MEDS: Metoprolol Succinate XL TAB* 25 MG PO SCH (17:35)
[2018-11-20] MEDS: Spironolactone TAB* 25 MG PO SCH (17:36)
[2018-11-20 18:19] LABS: Hematocrit 28 % (35-47); Hemoglobin 9.4 g/dL (12.0-16.0)
[2018-11-21 06:29] LABS: ABS Basophils 0.1 10^3/ul (0-0.2); ABS Eosinophils 0.2 10^3/ul (0-0.6); ABS Lymphocytes 1.1 10^3/ul (1.0-4.8); ABS Monocytes 0.6 10^3/ul (0-0.8); ABS Neutrophils 3.3 10^3/ul (1.5-7.7); Eosinophil % 3.3 %; Hematocrit 29 % (35-47); Hemoglobin 9.7 g/dL (12.0-16.0); Lymphocyte % 21.2 %; Mean Corpuscular HGB Conc 34 g/dL (31-36); Mean Corpuscular Hemoglobin 32 pg (27-31); Mean Corpuscular Volume 95 fL (80-97); Mean Platelet Volume 7.3 fL (7.4-10.4); Platelet Count 176 10^3/uL (150-450); Red Blood Count 3.01 10^6 /uL (3.70-4.87); Red Cell Distribution Width 16 % (10-15); White Blood Count 5.3 10^3/uL (3.5-10.8)
[2018-11-21 06:41] LABS: BUN/Creatinine Ratio 24.6 (8-20); Calcium 8.6 mg/dL (8.6-10.3); EGFR African American 104.8 (>60); EGFR Non-African American 86.6 (>60); Potassium 4.6 mmol/L (3.5-5.0)
[2018-11-21] MEDS: Furosemide TAB* 20 MG PO SCH (09:23)
[2018-11-21] MEDS: Topiramate TAB(*) 25 MG PO SCH ×2 (09:23→21:17)
[2018-11-21] MEDS: Gabapentin CAP(*) 300 MG PO SCH ×2 (09:24→21:18)
[2018-11-21] MEDS: Primidone TAB(*) 50 MG PO SCH ×2 (09:24→21:17)
[2018-11-21] MEDS: Amiodarone TAB* 200 MG PO SCH (09:25)
[2018-11-21] MEDS: CMC:Dabigatran CAP(NF) 150 MG CAP PO SCH ×2 (09:25→21:18)
[2018-11-21] MEDS: Multivitamins/Minerals TAB PO SCH (09:26)
[2018-11-21] MEDS: Cyanocobalamin TAB* 500 MCG PO SCH (09:26)
[2018-11-21] MEDS: Calcium/Vitamin D TAB 250/125* TAB PO SCH ×2 (09:26→21:16)
[2018-11-21] MEDS: Spironolactone TAB* 25 MG PO SCH (09:26)
[2018-11-21] MEDS: Ferrous Gluconate TAB* 324 MG TAB PO SCH (09:27)
[2018-11-21] MEDS: Fluticasone NASAL SPRAY 50MCG* 16 gm SPRAY BTL BOTH NARES SCH (09:27)
[2018-11-21] MEDS: Acetaminophen TAB* 325 MG PO PRN (09:59)
--- NOTE | 2018-11-21 10:08 | PN ---
Subjective Date of Service: 11/21/18 Interval History: Patient is feeling well today. Patient states her energy level, SOB, are improved. Patient denies abdominal pain, diarrhea, dysuria, dizziness, or other pain. Patient feels she is improving with PT/OT. Family History: Unchanged from Admission Social History: Unchanged from Admission Past Medical History: Unchanged from Admission Objective Active Medications: Acetaminophen (Tylenol Tab*) 650 mg PO Q8H PRN PRN Reason: PAIN SCALE 1-5 Last Admin: 11/21/18 09:59 Dose: 650 mg Amiodarone HCl (Cordarone Tab*) 200 mg PO DAILY [facility] Last Admin: 11/21/18 09:25 Dose: 200 mg Calcium/Vitamin D (Oscal D Tab 250/125*) 2 tab PO BID [facility] Last Admin: 11/21/18 09:26 Dose: 2 tab Cyanocobalamin (Vitamin B12 Tab*) 500 mcg PO QAM [facility] Last Admin: 11/21/18 09:26 Dose: 500 mcg Dabigatran (Pradaxa Cap(Nf)) 150 mg PO BID [facility] Last Admin: 11/21/18 09:25 Dose: 150 mg Ferrous Gluconate (Fergon Tab*) 324 mg PO DAILY [facility] Last Admin: 11/21/18 09:27 Dose: 324 mg Fluticasone Propionate (Flonase Nasal [place] 50mcg*) 1 spray BOTH NARES DAILY [facility] Last Admin: 11/21/18 09:27 Dose: 1 spray Furosemide (Lasix Tab*) 40 mg PO DAILY [facility] Last Admin: 11/21/18 09:23 Dose: 40 mg Gabapentin (Neurontin Cap(*)) 300 mg PO QAM [facility] Last Admin: 11/21/18 09:24 Dose: 300 mg Gabapentin (Neurontin Cap(*)) 600 mg PO BEDTIME [facility] Last Admin: 11/20/18 20:09 Dose: 600 mg Magnesium Hydroxide (Milk Of Magnesia Liq*) 30 ml PO Q6H PRN PRN Reason: CONSTIPATION Last Admin: 11/18/18 08:41 Dose: 30 ml Metoprolol Succinate (Toprol Xl Tab*) 25 mg PO QPM [facility] Last Admin: 11/20/18 17:35 Dose: 25 mg Mometasone Furoate (Asmanex 220 Mcg Mdi *) 1 puff INH QPM PRN PRN Reason: WHEEZING Multivitamins/Minerals (Theragran/Minerals Tab*) 1 tab PO DAILY [facility] Last Admin: 11/21/18 09:26 Dose: 1 tab Ondansetron HCl (Zofran Inj*) 4 mg IV Q6H PRN PRN Reason: NAUSEA/VOMITING Oxycodone HCl (Roxycodone Tab*) 5 mg PO Q6H PRN PRN Reason: PAIN SCALE 6-10 Primidone (Mysoline Tab(*)) 150 mg PO BID [facility] Last Admin: 11/21/18 09:24 Dose: 150 mg Senna (Senokot Tab*) 2 tab PO BEDTIME PRN PRN Reason: CONSTIPATION Spironolactone (Aldactone Tab*) 25 mg PO QAM [facility] Last Admin: 11/21/18 09:26 Dose: 25 mg Topiramate (Topamax(*)) 50 mg PO BID [facility] Last Admin: 11/21/18 09:23 Dose: 50 mg Vital Signs - 8 hr 11/21/18 11/21/18 11/21/18 03:08 07:16 09:24 Temperature 98.7 F 100.4 F Pulse Rate 60 64 Respiratory 16 17 16 Rate Blood Pressure 120/49 107/45 (mmHg) O2 Sat by Pulse 100 93 Oximetry Oxygen Devices in Use Now: None Appearance: Patient is an 83yo female who appears stated age and is sitting in the bed in [facility]. Eyes: No Scleral Icterus, PERRLA Ears/Nose/Mouth/Throat: NL Teeth, Lips, Gums, Clear Oropharnyx, Mucous Membranes Moist Neck: NL Appearance and Movements; NL JVP, Trachea Midline Respiratory: Symmetrical Chest Expansion and Respiratory Effort, Clear to Auscultation Cardiovascular: RRR, No Edema, - - Grade 3/6 Systolic murmur. Abdominal: NL Sounds; No Tenderness; No Distention, No Hepatosplenomegaly Lymphatic: No Cervical Adenopathy Extremities: No Edema, No Clubbing, Cyanosis Skin: No Nodules or Sclerosis, - - Hip dressing CDI. Neurological: Alert and Oriented x 3, NL Sensation, NL Muscle Strength and Tone , - - CN II-XII intact. 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 Patient is S/P ORIF right hip and OBI guided cardioversion. - Patient Problems (1) Closed right hip fracture Current Visit: Yes Status: Acute Code(s): S72.001A - FRACTURE OF UNSP PART OF NECK OF RIGHT FEMUR, INIT SNOMED Code(s): 358554218 Comment: - ORIF 11/14. - Pain control - Bowel regimen - PT/OT for placement pending - Appreciate ortho input - Still needing Easy Stand to transfer. - DVT Prophylaxis with home Pradaxa. - Transfused 2u PRBC total. Hemoglobin now 9.7 and rising without intervention. (2) Atrial fibrillation Current Visit: Yes Status: Acute Code(s): I48.91 - UNSPECIFIED ATRIAL FIBRILLATION SNOMED Code(s): 86862834 Comment: - Recurrance of afib and possible RVR, with history of ablations and cardioversions. - Present before admission - On amiodarone and dabigatran - Hard to control rates and hypotension. OBI cardioversion successful. - Increase amiodarone for rhythm control per cardiology until D/C. Extra dose given. - Needs at least 30 days of Pradaxa. (3) Aortic stenosis Current Visit: Yes Status: Acute Code(s): I35.0 - NONRHEUMATIC AORTIC (VALVE ) STENOSIS SNOMED Code(s): 53760644 Comment: - F/U outpatient with Cardiology for ongoing monitoring and consideration of replacement. - Not in overt CHF. (4) Essential tremor Current Visit: Yes Status: Acute Code(s): G25.0 - ESSENTIAL TREMOR SNOMED Code(s): 888105489 Comment: - This is the indication for her topiramate and primidone. (5) Heart failure with reduced ejection fraction Current Visit: Yes Status: Acute Code(s): I50.20 - UNSPECIFIED SYSTOLIC ( CONGESTIVE) HEART FAILURE SNOMED Code(s): 772296163 Comment: - Tachy-induced. - Held home furosemide and spironolactone given hypovolemia on presentation and low BPs during admission. - Resumed with subjective improvement in SOB. (6) Rhabdomyolysis Current Visit: Yes Status: Acute Code(s): M62.82 - RHABDOMYOLYSIS SNOMED Code(s): 255672427 Comment: - Present on admission from prolonged down-time. - Improved, no evidence of ATN. (7) Full code status Current Visit: Yes Status: Acute Code(s): Z78.9 - OTHER SPECIFIED HEALTH STATUS SNOMED Code(s): 838840980 Status and Disposition: Will need rehab at discharge, D/C to [place] pending insurance authorization.
--- NOTE | 2018-11-21 13:26 | DS ---
CC: Dr. Carmen Winter * INTERIM DISCHARGE SUMMARY: DATE OF ADMISSION: 11/13/18 DATE OF DISCHARGE: PRIMARY CARE PROVIDER: Dr. Carmen Winter. MY ATTENDING WHILE IN THE HOSPITAL: Dr. Fredi Mccormack.* (DICTATED BY DEX DE LA ROSA) PRIMARY DISCHARGE DIAGNOSES: 1. Fall with right intertrochanteric hip fracture, status post repair. 2. Atrial fibrillation with rapid ventricular response, status post cardioversion. 3. Heart failure, reduced ejection fraction. 4. Tachycardia-induced mild congestive heart failure exacerbation. 5. Mild rhabdomyolysis, resolved. SECONDARY DISCHARGE DIAGNOSES: 1. Obstructive sleep apnea. 2. Essential tremor. 3. Aortic stenosis. 4. Hypertension. 5. Left bundle branch block. 6. Dyslipidemia. 7. Known arteriovenous malformation of the colon. STUDIES DONE WHILE IN THE HOSPITAL: EKG from 11/13/18 shows atrial fibrillation , left bundle branch block, PVCs. No ST segment elevation or depression, poor quality study, baseline wander, left axis deviation. Chest x-ray from 11/13/18 read as no evidence for active cardiopulmonary disease. Pelvis x-ray from 11/13/18 read as comminuted intertrochanteric fracture of the right hip with medial displacement of the distal fracture fragment. Femur x-ray from 11/14/18 read as no radiographically apparent fracture or dislocation involving the right distal femur. Chest/thorax CTA from 11/17/18 read as no pulmonary emboli; findings, in the proper clinical setting, can be seen in pulmonary hypertension, mild emphysema, bilateral pleural effusions with associated lung volume loss. Transesophageal echocardiogram from 11/19/18 read as left ventricular EF 45% to 50%, right ventricular systolic function mildly reduced, left atrium severely dilated. No evidence of thrombus in the atrial cavity or appendage. Mitral valve consistent with mild stenosis, aortic valve consistent with severe stenosis. Pulmonary artery pressure during systole is 56 mmHg. Descending aorta mildly calcified. EKG from 11/19/18 shows normal sinus rhythm, rate of 76, QTc of 459. No ST segment elevation or depression. Persistent left bundle branch block pattern, persistent left axis deviation. No hypertrophy or enlargement. HOSPITAL COURSE: This is a brief summary of the patient's presentation. For more details, please see the history and physical from Yasemin Lizama NP, on 11/13/18. In brief, the patient is an 83-year-old female with past medical history significant for the above, who presented to the emergency department 3 days before her admission after she had a fall after feeling as if she went into atrial fibrillation, becoming dizzy and weak, and then unable to get back up. The patient was down on the floor for 3 days due to weakness and extreme pain in her hip. EMS was activated by the patient's friends and they brought her into the emergency department where she was found to be in AFib with RVR, have mild rhabdomyolysis, and a hip fracture. The patient was seen in consultation by Dr. Antony Lopez of Orthopedics, who recommended surgical fixation of the patient's hip, which was performed on 11/14/18. The patient's blood pressure remained low. Prior to the patient's surgery, she had medical optimization by Dr. Tremayne Driscoll. The patient was on metoprolol and amiodarone , which were continued during her hospitalization and cardioversion was not deemed necessary before going to the operating room. The patient had an uncomplicated surgery, received 1 unit of packed red blood cells intraoperatively, but continued to have worsening anemia postoperatively, though she was being given fluids for her low blood pressure. The patient had persistently low blood pressures and developed some shortness of breath. On 01/28, the patient's chest/thorax CTA was read as above. The patient's case was discussed at that time with Dr. Marsha Prado of Cardiology, who recommended OBI with cardioversion, which was performed on 11/19/18. The patient, during this time, was found to be very weak after her prolonged downtime and was needing mechanical lift with physical therapy to get out of bed. The patient's blood pressure improved greatly and immediately after her cardioversion and she was able to be restart on her diuresis, which helped to improve her subjective shortness of breath. The patient's hemoglobin trended down to 7.7 on 11/20/18 and she was transfused an additional unit of packed red blood cells, which had a greater than expected response in the patient's blood counts. The patient feels well, though she is still significantly weak, needing mechanical lift as of 11/21/18. DISCHARGE PLAN TO-DATE: The patient has been cardioverted. The patient has had her amiodarone increased for, what was recommended to be, 7 days by Cardiology to 200 mg daily and was given 1 additional dose of amiodarone on the day of her cardioversion. The patient will be continued on her home diuretics of Lasix and spironolactone, which had been held for most of her hospitalization. The patient should have hemoglobin and hematocrit monitored, though it seems that her blood loss has stopped. The patient's potassium and magnesium should be optimized to greater than 4 and 2 respectively. The patient should follow up with her mold release worker as outpatient for an echocardiogram after a prolonged period of normal sinus rhythm to assess for recovery in the patient's EF. The patient is on optimum care for her heart failure with reduced ejection fraction. The patient should have a heart- healthy diet without caffeine and engage in activity as tolerated, working with Physical Therapy and Occupational Therapy at her rehab facility, which will be [facility] to help restore functional capacity. TIME SPENT: Approximately 20 minutes were spent on this interim discharge summary. DEX DE LA ROSA [id number]/[facility] #: [id number] ISABEL
[2018-11-21] MEDS: Metoprolol Succinate XL TAB* 25 MG PO SCH (17:47)
[2018-11-21] MEDS: Magnesium Hydroxide LIQ* 30 ML UDC PO PRN (22:42)
[2018-11-22 06:38] LABS: ABS Basophils 0.1 10^3/ul (0-0.2); ABS Eosinophils 0.2 10^3/ul (0-0.6); ABS Lymphocytes 1.2 10^3/ul (1.0-4.8); ABS Monocytes 0.6 10^3/ul (0-0.8); ABS Neutrophils 3.3 10^3/ul (1.5-7.7); Eosinophil % 3.2 %; Hematocrit 27 % (35-47); Hemoglobin 9.2 g/dL (12.0-16.0); Lymphocyte % 22.6 %; Mean Corpuscular HGB Conc 34 g/dL (31-36); Mean Corpuscular Hemoglobin 33 pg (27-31); Mean Corpuscular Volume 95 fL (80-97); Mean Platelet Volume 7.8 fL (7.4-10.4); Nucleated Red Blood Cells % 0.1; Platelet Count 199 10^3/uL (150-450); Red Blood Count 2.82 10^6 /uL (3.70-4.87); Red Cell Distribution Width 17 % (10-15); White Blood Count 5.3 10^3/uL (3.5-10.8)
[2018-11-22 06:56] LABS: BUN/Creatinine Ratio 23.8 (8-20); Calcium 7.7 mg/dL (8.6-10.3); EGFR African American 82.5 (>60); EGFR Non-African American 68.2 (>60); Potassium 4.1 mmol/L (3.5-5.0)
[2018-11-22] MEDS: Fluticasone NASAL SPRAY 50MCG* 16 gm SPRAY BTL BOTH NARES SCH (08:25)
[2018-11-22] MEDS: Furosemide TAB* 20 MG PO SCH (10:28)
[2018-11-22] MEDS: Primidone TAB(*) 50 MG PO SCH ×2 (10:29→21:10)
[2018-11-22] MEDS: Calcium/Vitamin D TAB 250/125* TAB PO SCH ×2 (10:29→21:06)
[2018-11-22] MEDS: Ferrous Gluconate TAB* 324 MG TAB PO SCH (10:29)
[2018-11-22] MEDS: CMC:Dabigatran CAP(NF) 150 MG CAP PO SCH ×2 (10:29→21:06)
[2018-11-22] MEDS: Gabapentin CAP(*) 300 MG PO SCH ×2 (10:29→21:11)
[2018-11-22] MEDS: Topiramate TAB(*) 25 MG PO SCH ×2 (10:29→21:08)
[2018-11-22] MEDS: Cyanocobalamin TAB* 500 MCG PO SCH (10:30)
[2018-11-22] MEDS: Spironolactone TAB* 25 MG PO SCH (10:30)
[2018-11-22] MEDS: Amiodarone TAB* 200 MG PO SCH (10:30)
[2018-11-22] MEDS: Multivitamins/Minerals TAB PO SCH (10:30)
[2018-11-22] MEDS: Acetaminophen TAB* 325 MG PO PRN (10:45)
--- NOTE | 2018-11-22 10:57 | PN ---
Progress Note - Progress Note Date of Service: 11/22/18 SOAP: Subjective: Pt seen at bedside. She has no complaints today. R hip nonpainful. Denies CP, SOB, dizziness, nausea. Objective: []Gen: NAD RLE: Dressing changed, Incisions CDI no active drainage, no drainage on dressings. Thigh is soft, DF/PF intact, DP2+, sensation intact to light touch distally. Calves supple and nontender without erythema, edema or palpable cords Vital Signs Temp 98.5 F 11/22/18 07:37 Pulse 65 11/22/18 07:37 Resp 16 11/22/18 10:29 BP 103/41 11/22/18 07:37 Pulse Ox 93 11/22/18 07:37 Intake & Output 11/21/18 11/22/18 11/22/18 18:59 06:59 18:59 Intake Total 1170 160 Output Total 1800 550 300 Balance -630 -390 -300 Weight 132 lb 8 oz Intake: Oral 1170 160 Output: Urine 1800 550 300 Other: # Bowel Movements 1 Estimated Stool Amount Medium # Voids 2 Assessment: SP ORIF right hip Plan: 1) PT/OT- WBAT 2) hospitalist co-managing 3) DVT prophy: on pradaxa 4) daily dry sterile dressing change 5) requires rehab, awaiting [facility]
--- NOTE | 2018-11-22 17:07 | PN ---
Subjective Date of Service: 11/22/18 Interval History: Patient is feeling well today. She continues to need easy stand for transferring. She denies dizziness/lightheadedness, chest pain, difficulty breathing, fever/chills, hematochezia/melenia, abd pain, nausea, vomiting. Family History: Unchanged from Admission Social History: Unchanged from Admission Past Medical History: Unchanged from Admission Objective Active Medications: Acetaminophen (Tylenol Tab*) 650 mg PO Q8H PRN PRN Reason: PAIN SCALE 1-5 Last Admin: 11/22/18 10:45 Dose: 650 mg Amiodarone HCl (Cordarone Tab*) 200 mg PO DAILY [facility] Last Admin: 11/22/18 10:30 Dose: 200 mg Calcium/Vitamin D (Oscal D Tab 250/125*) 2 tab PO BID [facility] Last Admin: 11/22/18 10:29 Dose: 2 tab Cyanocobalamin (Vitamin B12 Tab*) 500 mcg PO QAM [facility] Last Admin: 11/22/18 10:30 Dose: 500 mcg Dabigatran (Pradaxa Cap(Nf)) 150 mg PO BID [facility] Last Admin: 11/22/18 10:29 Dose: 150 mg Ferrous Gluconate (Fergon Tab*) 324 mg PO DAILY [facility] Last Admin: 11/22/18 10:29 Dose: 324 mg Fluticasone Propionate (Flonase Nasal [place] 50mcg*) 1 spray BOTH NARES DAILY [facility] Last Admin: 11/22/18 08:25 Dose: 1 spray Furosemide (Lasix Tab*) 40 mg PO DAILY [facility] Last Admin: 11/22/18 10:28 Dose: 40 mg Gabapentin (Neurontin Cap(*)) 300 mg PO QAM [facility] Last Admin: 11/22/18 10:29 Dose: 300 mg Gabapentin (Neurontin Cap(*)) 600 mg PO BEDTIME [facility] Last Admin: 11/21/18 21:18 Dose: 600 mg Magnesium Hydroxide (Milk Of Magnesia Liq*) 30 ml PO Q6H PRN PRN Reason: CONSTIPATION Last Admin: 11/21/18 22:42 Dose: 30 ml Metoprolol Succinate (Toprol Xl Tab*) 25 mg PO QPM [facility] Last Admin: 11/21/18 17:47 Dose: 25 mg Mometasone Furoate (Asmanex 220 Mcg Mdi *) 1 puff INH QPM PRN PRN Reason: WHEEZING Multivitamins/Minerals (Theragran/Minerals Tab*) 1 tab PO DAILY [facility] Last Admin: 11/22/18 10:30 Dose: 1 tab Ondansetron HCl (Zofran Inj*) 4 mg IV Q6H PRN PRN Reason: NAUSEA/VOMITING Oxycodone HCl (Roxycodone Tab*) 5 mg PO Q6H PRN PRN Reason: PAIN SCALE 6-10 Primidone (Mysoline Tab(*)) 150 mg PO BID [facility] Last Admin: 11/22/18 10:29 Dose: 150 mg Senna (Senokot Tab*) 2 tab PO BEDTIME PRN PRN Reason: CONSTIPATION Spironolactone (Aldactone Tab*) 25 mg PO QAM [facility] Last Admin: 11/22/18 10:30 Dose: 25 mg Topiramate (Topamax(*)) 50 mg PO BID [facility] Last Admin: 11/22/18 10:29 Dose: 50 mg Vital Signs - 8 hr 11/22/18 11/22/18 11/22/18 10:29 12:18 15:07 Temperature 98.3 F 97.9 F Pulse Rate 59 70 Respiratory 16 17 16 Rate Blood Pressure 100/43 103/41 (mmHg) O2 Sat by Pulse 93 100 Oximetry Oxygen Devices in Use Now: None Appearance: Thin, elderly white female sitting in chair appearing in NAD Eyes: No Scleral Icterus, PERRLA Ears/Nose/Mouth/Throat: Mucous Membranes Moist Neck: NL Appearance and Movements; NL JVP Respiratory: Symmetrical Chest Expansion and Respiratory Effort, Clear to Auscultation Cardiovascular: RRR, - - Grade III systolic murmur Abdominal: - - abd soft, nontender, nondistended Extremities: No Edema, No Clubbing, Cyanosis Skin: No Rash or Ulcers Neurological: Alert and Oriented x 3, NL Sensation Result Diagrams: 11/22/18 06:13 11/22/18 06:13 Assess/Plan/Problems-Billing Assessment: 83W with afib on AC s/p multiple failed ablations/cardioversions, 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 Patient is S/P ORIF right hip and OBI guided cardioversion. - Patient Problems (1) Closed right hip fracture Current Visit: Yes Status: Acute Code(s): S72.001A - FRACTURE OF UNSP PART OF NECK OF RIGHT FEMUR, INIT SNOMED Code(s): 695952350 Comment: - ORIF 11/14. - Continue pain control and bowel regimen - PT/OT recommends SNF for rehab - Still needing Easy Stand to transfer. - DVT Prophylaxis with home Pradaxa, continue at least 30 days after surgery per ortho - Transfused 2u PRBC total. H&H remains stable (2) Atrial fibrillation Current Visit: Yes Status: Acute Code(s): I48.91 - UNSPECIFIED ATRIAL FIBRILLATION SNOMED Code(s): 36331513 Comment: - Recurrance of afib and possible RVR, with history of ablations and cardioversions. - Hard to control rates and hypotension. OBI cardioversion successful on 11/19/18 - Amiodarone increased to 200 mg, will continue for total one week and reduce back to home 100 mg - continue metoprolol - Needs at least 30 days of Pradaxa, to continue - currently rate-controlled (3) Heart failure with reduced ejection fraction Current Visit: Yes Status: Acute Code(s): I50.20 - UNSPECIFIED SYSTOLIC ( CONGESTIVE) HEART FAILURE SNOMED Code(s): 677551458 Comment: - Tachy-induced. - furosemide and spironolactone previously held in setting of hypotension and hypovolemia, since resumed and will continue - home potassium supplement held and K has been normal - lungs clear and no peripheral edema (4) Aortic stenosis Current Visit: Yes Status: Acute Code(s): I35.0 - NONRHEUMATIC AORTIC (VALVE ) STENOSIS SNOMED Code(s): 36629185 Comment: - F/U outpatient with Cardiology for ongoing monitoring and consideration of replacement. - Not in overt CHF. (5) Essential tremor Current Visit: Yes Status: Acute Code(s): G25.0 - ESSENTIAL TREMOR SNOMED Code(s): 545096056 Comment: - continue topiramate and primidone (6) Rhabdomyolysis Current Visit: Yes Status: Acute Code(s): M62.82 - RHABDOMYOLYSIS SNOMED Code(s): 062164696 Comment: - Present on admission from prolonged down-time. - Resolved, no evidence of ATN. (7) DVT prophylaxis Current Visit: Yes Status: Acute Code(s): Z29.9 - ENCOUNTER FOR PROPHYLACTIC MEASURES, UNSPECIFIED SNOMED Code(s): 696618918 Comment: -continue pradaxa per ortho (8) Full code status Current Visit: Yes Status: Acute Code(s): Z78.9 - OTHER SPECIFIED HEALTH STATUS SNOMED Code(s): 320897780 Status and Disposition: Will need rehab at discharge, D/C to [place] pending insurance authorization.
[2018-11-22] MEDS: Metoprolol Succinate XL TAB* 25 MG PO SCH (18:03)
--- NOTE | 2018-11-23 00:16 | DS ---
TWO ADDENDUMS ARE NOW INCLUDED ON THIS REPORT SUPPLEMENT TO PRIOR DISCHARGE SUMMARY BY DEX DE LA ROSA: DATE OF ADMISSION: 11/13/18 DATE OF DISCHARGE: 11/23/18 ATTENDING PROVIDER: Dr. Reynold Walton * (DICTATED BY DEX DARNELL) DISCHARGE MEDICATIONS: 1. Amiodarone 200 mg p.o. daily. 2. Calcium with vitamin D tablet 600 mg p.o. b.i.d. 3. Cyanocobalamin 500 mcg p.o. daily. 4. Pradaxa 150 mg p.o. b.i.d. 5. Ferrous gluconate 325 mg p.o. daily. 6. Flovent Diskus 1 puff inhaled b.i.d. p.r.n. wheezing. 7. Lasix 40 mg p.o. daily. 8. Gabapentin 600 mg p.o. at bedtime and 300 mg p.o. q.a.m. 9. Milk of magnesia 30 mL of p.o. q. 6 hours p.r.n. constipation. 10. Metoprolol succinate 50 mg p.o. daily. 11. Multivitamin tab p.o. daily. 12. Oxycodone 5 mg p.o. q.6 hours p.r.n. severe pain. 13. Primidone 150 mg p.o. b.i.d. 14. Senna 2 tabs p.o. bedtime p.r.n. constipation. 15. Spironolactone 25 mg p.o. q.a.m. 16. Topiramate 50 mg p.o. b.i.d. 17. Triamcinolone nasal spray both nares daily. 18. Acetaminophen 650 p.o. q.6 hours p.r.n. pain. 19. Clotrimazole/betamethasone cream topically b.i.d. p.r.n. erythema. 20. Premarin vaginal cream. 21. Miconazole 1 dose per vagina p.r.n. pruritus. 22. Halobetasol propionate 1 application topically b.i.d. p.r.n. inflammation. 23. Loratadine 10 mg p.o. daily p.r.n. allergy symptoms. 24. Nitroglycerin 0.4 mg tab sublingual q.5 minutes p.r.n. angina. 25. Proventil 2 puffs inhaled 4 times a day p.r.n. dyspnea. 26. Triamcinolone one dose topically b.i.d. p.r.n. itching. DISCHARGE INSTRUCTIONS: The patient should have her efrain removed on 11/28/18 , which is 14 days after her surgery. She should follow up with orthopedic surgeon Dr. Lopez in the outpatient setting. She should be continued on Pradaxa for at least 1 month after her hip surgery, therefore at least until 10/28. Her amiodarone should be reduced back down to 100 mg p.o. daily starting on 11/27/18. It is recommended she follow up with Cardiology within 1 to 2 months given that the patient had cardioversion, given this new titration of amiodarone. I recommend discontinuing her previous home dose of potassium chloride at this time given that her potassium was normal within her hospital stay. I recommend having followup BMP and consider restarting this if necessary. Additionally, I am discontinuing her p.r.n. clonazepam at this time given use of opioids for control of her hip pain. Of note, her home topiramate and primidone are used for treatment of her essential tremor. DEX DARNELL ADDENDUM NO.1: DATE OF ADMISSION: 11/13/18 DATE OF DISCHARGE: 11/24/18 ATTENDING PROVIDER: Dr. Reynold Walton * (DICTATED BY DEX DARNELL) DISPOSITION: [facility]. On date of discharge, the patient is feeling well and her pain is well controlled. She was at physical therapy yesterday and was able to ambulate with good pain control as well. She denies chest pain, difficulty breathing, fever, or chills. She is having intermittent epigastric pain, which she describes as acid reflux, which she does experience relief with Tums and denies nausea and vomiting. PHYSICAL EXAMINATION: On date of discharge: General: Elderly white female, sitting upright in hospital bed, appearing comfortable, in no acute distress. Head: Normocephalic, atraumatic. Eyes: PERRLA. Sclerae anicteric. ENT: Mucous membranes moist. Neck: Supple. Lungs: Clear to auscultation throughout. Cardio: Regular rate and rhythm. Abdomen: Abdomen is soft, nontender, nondistended. Normoactive bowel sounds throughout. Extremities: No clubbing, cyanosis, or edema. Neuro: The patient is alert and oriented x3. No focal deficits. Skin: Skin is warm, dry, and intact. CONDITION ON DISCHARGE: Stable. For further details, please see preliminary discharge summary dictated by Wilbert Suarez on date 11/21/18 and my additional instructions that were dictated on 11/22/18. TIME SPENT: This discharge took approximately 20 minutes, majority of which was spent at the bedside. ADDENDUM NO.2: ADDENDUM TO PREVIOUS DISCHARGE SUMMARY DATE OF ADMISSION: 11/13/18 DATE OF DISCHARGE: 11/25/18 PHYSICAL EXAM: Unchanged from previous addendum. OF NOTE: Patient requests to have her dose of Spironolactone and Lasix postponed this morning as she is nervous about having to urinate during her ambulance ride to [place], and it would be of benefit if she was provided with these medications upon her arrival. DEX DARNELL [id number]/CPS #: [id number]/CPS #: [id number]/CPS #: [id number] [facility]ITAL[facility]
[2018-11-23 07:15] LABS: Hematocrit 27 % (35-47); Hemoglobin 9.2 g/dL (12.0-16.0)
[2018-11-23] MEDS: Topiramate TAB(*) 25 MG PO SCH ×2 (09:23→21:18)
[2018-11-23] MEDS: Calcium/Vitamin D TAB 250/125* TAB PO SCH ×2 (09:23→21:20)
[2018-11-23] MEDS: CMC:Dabigatran CAP(NF) 150 MG CAP PO SCH ×2 (09:24→21:22)
[2018-11-23] MEDS: Primidone TAB(*) 50 MG PO SCH ×2 (09:24→21:19)
[2018-11-23] MEDS: Furosemide TAB* 20 MG PO SCH (09:25)
[2018-11-23] MEDS: Spironolactone TAB* 25 MG PO SCH (09:26)
[2018-11-23] MEDS: Amiodarone TAB* 200 MG PO SCH (09:26)
[2018-11-23] MEDS: Gabapentin CAP(*) 300 MG PO SCH ×2 (09:26→21:19)
[2018-11-23] MEDS: Ferrous Gluconate TAB* 324 MG TAB PO SCH (09:26)
[2018-11-23] MEDS: Fluticasone NASAL SPRAY 50MCG* 16 gm SPRAY BTL BOTH NARES SCH (09:27)
[2018-11-23] MEDS: Cyanocobalamin TAB* 500 MCG PO SCH (09:27)
[2018-11-23] MEDS: Multivitamins/Minerals TAB PO SCH (09:27)
[2018-11-23] MEDS ORDERED: Calcium Carbonate CHEW TAB* 500 MG (TUMS) ONE (12:48)
[2018-11-23] MEDS: Acetaminophen TAB* 325 MG PO PRN (12:49)
[2018-11-23] MEDS: Calcium Carbonate CHEW TAB* 500 MG (TUMS) PO PRN (12:49)
--- NOTE | 2018-11-23 16:12 | PN ---
Subjective Date of Service: 11/23/18 Interval History: Patient has no complaints today. She feels her pain is well controlled. She is hoping to go to rehab today. Denies chest pain, difficulty breathing, fever/ chills, abd pain, n/v. Later in afternoon, some indigestion was reported to RN and ordered tums, sxs resolved. Family History: Unchanged from Admission Social History: Unchanged from Admission Past Medical History: Unchanged from Admission Objective Active Medications: Acetaminophen (Tylenol Tab*) 650 mg PO Q8H PRN PRN Reason: PAIN SCALE 1-5 Last Admin: 11/23/18 12:49 Dose: 650 mg Amiodarone HCl (Cordarone Tab*) 200 mg PO DAILY [facility] Last Admin: 11/23/18 09:26 Dose: 200 mg Calcium Carbonate (Tums*) 500 mg PO Q4H PRN PRN Reason: INDIGESTION Last Admin: 11/23/18 12:49 Dose: 500 mg Calcium/Vitamin D (Oscal D Tab 250/125*) 2 tab PO BID [facility] Last Admin: 11/23/18 09:23 Dose: 2 tab Cyanocobalamin (Vitamin B12 Tab*) 500 mcg PO QAM [facility] Last Admin: 11/23/18 09:27 Dose: 500 mcg Dabigatran (Pradaxa Cap(Nf)) 150 mg PO BID [facility] Last Admin: 11/23/18 09:24 Dose: 150 mg Ferrous Gluconate (Fergon Tab*) 324 mg PO DAILY [facility] Last Admin: 11/23/18 09:26 Dose: 324 mg Fluticasone Propionate (Flonase Nasal [place] 50mcg*) 1 spray BOTH NARES DAILY [facility] Last Admin: 11/23/18 09:27 Dose: 1 spray Furosemide (Lasix Tab*) 40 mg PO DAILY [facility] Last Admin: 11/23/18 09:25 Dose: 40 mg Gabapentin (Neurontin Cap(*)) 300 mg PO QAM [facility] Last Admin: 11/23/18 09:26 Dose: 300 mg Gabapentin (Neurontin Cap(*)) 600 mg PO BEDTIME [facility] Last Admin: 11/22/18 21:11 Dose: 600 mg Magnesium Hydroxide (Milk Of Magnesia Liq*) 30 ml PO Q6H PRN PRN Reason: CONSTIPATION Last Admin: 11/21/18 22:42 Dose: 30 ml Metoprolol Succinate (Toprol Xl Tab*) 25 mg PO QPM [facility] Last Admin: 11/22/18 18:03 Dose: 25 mg Mometasone Furoate (Asmanex 220 Mcg Mdi *) 1 puff INH QPM PRN PRN Reason: WHEEZING Multivitamins/Minerals (Theragran/Minerals Tab*) 1 tab PO DAILY [facility] Last Admin: 11/23/18 09:27 Dose: 1 tab Ondansetron HCl (Zofran Inj*) 4 mg IV Q6H PRN PRN Reason: NAUSEA/VOMITING Oxycodone HCl (Roxycodone Tab*) 5 mg PO Q6H PRN PRN Reason: PAIN SCALE 6-10 Primidone (Mysoline Tab(*)) 150 mg PO BID [facility] Last Admin: 11/23/18 09:24 Dose: 150 mg Senna (Senokot Tab*) 2 tab PO BEDTIME PRN PRN Reason: CONSTIPATION Spironolactone (Aldactone Tab*) 25 mg PO QAM [facility] Last Admin: 11/23/18 09:26 Dose: 25 mg Topiramate (Topamax(*)) 50 mg PO BID [facility] Last Admin: 11/23/18 09:23 Dose: 50 mg Vital Signs - 8 hr 11/23/18 11/23/18 11/23/18 09:26 11:23 15:45 Temperature 99.2 F 98.0 F Pulse Rate 65 69 Respiratory 16 18 16 Rate Blood Pressure 107/38 105/44 (mmHg) O2 Sat by Pulse 95 95 Oximetry Oxygen Devices in Use Now: None Appearance: Thin, elderly white female sitting in chair appearing in NAD Eyes: No Scleral Icterus, PERRLA Ears/Nose/Mouth/Throat: Mucous Membranes Moist Neck: NL Appearance and Movements; NL JVP Respiratory: Symmetrical Chest Expansion and Respiratory Effort, Clear to Auscultation Cardiovascular: NL Sounds; No Murmurs; No JVD, - - grade II systolic murmur Abdominal: - - abd soft, nontender, nondistended Extremities: No Edema, No Clubbing, Cyanosis Skin: No Rash or Ulcers Neurological: Alert and Oriented x 3, - - no focal deficits Result Diagrams: 11/23/18 06:37 11/22/18 06:13 Assess/Plan/Problems-Billing Assessment: 83W with afib on AC s/p multiple failed ablations/cardioversions, 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 Patient is S/P ORIF right hip and OBI guided cardioversion. - Patient Problems (1) Closed right hip fracture Current Visit: Yes Status: Acute Code(s): S72.001A - FRACTURE OF UNSP PART OF NECK OF RIGHT FEMUR, INIT SNOMED Code(s): 268813536 Comment: - ORIF 11/14. - Continue pain control and bowel regimen - PT/OT recommends SNF for rehab - Still needing Easy Stand to transfer. - DVT Prophylaxis with home Pradaxa, continue at least 30 days after surgery per ortho - Transfused 2u PRBC total. H&H remains stable (2) Atrial fibrillation Current Visit: Yes Status: Acute Code(s): I48.91 - UNSPECIFIED ATRIAL FIBRILLATION SNOMED Code(s): 47498756 Comment: - Recurrance of afib and possible RVR, with history of ablations and cardioversions. - Hard to control rates and hypotension. OBI cardioversion successful on 11/19/18 - Amiodarone increased to 200 mg, will continue for total one week and reduce back to home 100 mg - continue metoprolol - Needs at least 30 days of Pradaxa, to continue - currently rate-controlled (3) Heart failure with reduced ejection fraction Current Visit: Yes Status: Acute Code(s): I50.20 - UNSPECIFIED SYSTOLIC ( CONGESTIVE) HEART FAILURE SNOMED Code(s): 775409321 Comment: - Tachy-induced. - furosemide and spironolactone previously held in setting of hypotension and hypovolemia, since resumed and will continue - home potassium supplement held and K has been normal - no evidence of exacerbation at this time (4) Aortic stenosis Current Visit: Yes Status: Acute Code(s): I35.0 - NONRHEUMATIC AORTIC (VALVE ) STENOSIS SNOMED Code(s): 83504612 Comment: - F/U outpatient with Cardiology for ongoing monitoring and consideration of replacement. - Not in overt CHF. (5) Essential tremor Current Visit: Yes Status: Acute Code(s): G25.0 - ESSENTIAL TREMOR SNOMED Code(s): 753723173 Comment: - continue topiramate and primidone (6) Rhabdomyolysis Current Visit: Yes Status: Acute Code(s): M62.82 - RHABDOMYOLYSIS SNOMED Code(s): 454969607 Comment: - Present on admission from prolonged down-time. - Resolved, no evidence of ATN. (7) DVT prophylaxis Current Visit: Yes Status: Acute Code(s): Z29.9 - ENCOUNTER FOR PROPHYLACTIC MEASURES, UNSPECIFIED SNOMED Code(s): 711684339 Comment: -continue pradaxa per ortho (8) Full code status Current Visit: Yes Status: Acute Code(s): Z78.9 - OTHER SPECIFIED HEALTH STATUS SNOMED Code(s): 652504884 Status and Disposition: Will need rehab at discharge, D/C to [place] pending insurance authorization.
[2018-11-23] MEDS: Metoprolol Succinate XL TAB* 25 MG PO SCH (18:18)
[2018-11-24 07:11] LABS: Hematocrit 27 % (35-47); Hemoglobin 9.3 g/dL (12.0-16.0)
[2018-11-24] MEDS: Calcium/Vitamin D TAB 250/125* TAB PO SCH ×3 (09:58→22:23)
[2018-11-24] MEDS ORDERED: Calcium/Vitamin D TAB 250/125* TAB PO SCH (10:00)
--- NOTE | 2018-11-24 10:11 | DS ---
DISCHARGE SUMMARY: ADDENDUM: DATE OF ADMISSION: 11/13/18 DATE OF DISCHARGE: 11/24/18 ATTENDING PROVIDER: Dr. Reynold Walton * (DICTATED BY DEX DARNELL) DISPOSITION: [facility]. On date of discharge, the patient is feeling well and her pain is well controlled. She was at physical therapy yesterday and was able to ambulate with good pain control as well. She denies chest pain, difficulty breathing, fever, or chills. She is having intermittent epigastric pain, which she describes as acid reflux, which she does experience relief with Tums and denies nausea and vomiting. PHYSICAL EXAMINATION: On date of discharge: General: Elderly white female, sitting upright in hospital bed, appearing comfortable, in no acute distress. Head: Normocephalic, atraumatic. Eyes: PERRLA. Sclerae anicteric. ENT: Mucous membranes moist. Neck: Supple. Lungs: Clear to auscultation throughout. Cardio: Regular rate and rhythm. Abdomen: Abdomen is soft, nontender, nondistended. Normoactive bowel sounds throughout. Extremities: No clubbing, cyanosis, or edema. Neuro: The patient is alert and oriented x3. No focal deficits. Skin: Skin is warm, dry, and intact. CONDITION ON DISCHARGE: Stable. For further details, please see preliminary discharge summary dictated by Wilbert Suarez on date 11/21/18 and my additional instructions that were dictated on 11/22/18. TIME SPENT: This discharge took approximately 20 minutes, majority of which was spent at the bedside. DEX DARNELL [id number]/[facility] #: [id number] [facility] PARTNERSRoderick
[2018-11-24] MEDS: Calcium Carbonate CHEW TAB* 500 MG (TUMS) PO PRN (10:48)
[2018-11-24] MEDS: Topiramate TAB(*) 25 MG PO SCH ×2 (11:30→22:24)
[2018-11-24] MEDS: Primidone TAB(*) 50 MG PO SCH ×2 (11:31→22:23)
[2018-11-24] MEDS: Spironolactone TAB* 25 MG PO SCH (11:32)
[2018-11-24] MEDS: Furosemide TAB* 20 MG PO SCH (11:33)
[2018-11-24] MEDS: CMC:Dabigatran CAP(NF) 150 MG CAP PO SCH ×2 (11:33→22:22)
[2018-11-24] MEDS: Cyanocobalamin TAB* 500 MCG PO SCH (11:33)
[2018-11-24] MEDS: Ferrous Gluconate TAB* 324 MG TAB PO SCH (11:34)
[2018-11-24] MEDS: Amiodarone TAB* 200 MG PO SCH (11:34)
[2018-11-24] MEDS: Multivitamins/Minerals TAB PO SCH (11:34)
[2018-11-24] MEDS: Gabapentin CAP(*) 300 MG PO SCH ×2 (11:34→22:23)
[2018-11-24] MEDS: Fluticasone NASAL SPRAY 50MCG* 16 gm SPRAY BTL BOTH NARES SCH (11:35)
[2018-11-24] MEDS: Acetaminophen TAB* 325 MG PO PRN (16:20)
--- NOTE | 2018-11-24 18:14 | PN ---
Subjective Date of Service: 11/24/18 Interval History: Patient is hopeful to be discharge to rehab today. Patient has some mild abd pain after eating which is resolved with tums. Denies nausea, vomiting, fever/ chills, chest pain, difficulty breathing. Family History: Unchanged from Admission Social History: Unchanged from Admission Past Medical History: Unchanged from Admission Objective Active Medications: Acetaminophen (Tylenol Tab*) 650 mg PO Q8H PRN PRN Reason: PAIN SCALE 1-5 Last Admin: 11/24/18 16:20 Dose: 650 mg Amiodarone HCl (Cordarone Tab*) 200 mg PO DAILY [facility] Last Admin: 11/24/18 11:34 Dose: 200 mg Calcium Carbonate (Tums*) 500 mg PO Q4H PRN PRN Reason: INDIGESTION Last Admin: 11/24/18 10:48 Dose: 500 mg Calcium/Vitamin D (Oscal D Tab 250/125*) 2 tab PO BID [facility] Last Admin: 11/24/18 11:33 Dose: 2 tab Cyanocobalamin (Vitamin B12 Tab*) 500 mcg PO QAM [facility] Last Admin: 11/24/18 11:33 Dose: 500 mcg Dabigatran (Pradaxa Cap(Nf)) 150 mg PO BID [facility] Last Admin: 11/24/18 11:33 Dose: 150 mg Ferrous Gluconate (Fergon Tab*) 324 mg PO DAILY [facility] Last Admin: 11/24/18 11:34 Dose: 324 mg Fluticasone Propionate (Flonase Nasal [place] 50mcg*) 1 spray BOTH NARES DAILY [facility] Last Admin: 11/24/18 11:35 Dose: 1 spray Furosemide (Lasix Tab*) 40 mg PO DAILY [facility] Last Admin: 11/24/18 11:33 Dose: 40 mg Gabapentin (Neurontin Cap(*)) 300 mg PO QAM [facility] Last Admin: 11/24/18 11:34 Dose: 300 mg Gabapentin (Neurontin Cap(*)) 600 mg PO BEDTIME [facility] Last Admin: 11/23/18 21:19 Dose: 600 mg Magnesium Hydroxide (Milk Of Magnesia Liq*) 30 ml PO Q6H PRN PRN Reason: CONSTIPATION Last Admin: 11/21/18 22:42 Dose: 30 ml Metoprolol Succinate (Toprol Xl Tab*) 25 mg PO QPM [facility] Last Admin: 11/23/18 18:18 Dose: 25 mg Mometasone Furoate (Asmanex 220 Mcg Mdi *) 1 puff INH QPM PRN PRN Reason: WHEEZING Multivitamins/Minerals (Theragran/Minerals Tab*) 1 tab PO DAILY [facility] Last Admin: 11/24/18 11:34 Dose: 1 tab Ondansetron HCl (Zofran Inj*) 4 mg IV Q6H PRN PRN Reason: NAUSEA/VOMITING Primidone (Mysoline Tab(*)) 150 mg PO BID [facility] Last Admin: 11/24/18 11:31 Dose: 150 mg Senna (Senokot Tab*) 2 tab PO BEDTIME PRN PRN Reason: CONSTIPATION Spironolactone (Aldactone Tab*) 25 mg PO QAM [facility] Last Admin: 11/24/18 11:32 Dose: 25 mg Topiramate (Topamax(*)) 50 mg PO BID [facility] Last Admin: 11/24/18 11:30 Dose: 50 mg Vital Signs - 8 hr 11/24/18 11/24/18 11/24/18 11:34 11:53 14:59 Temperature 97.3 F 98.3 F Pulse Rate 64 65 Respiratory 16 16 17 Rate Blood Pressure 119/45 107/37 (mmHg) O2 Sat by Pulse 96 97 Oximetry Oxygen Devices in Use Now: None Appearance: Elderly white female in hospital bed appearing in NAD Eyes: No Scleral Icterus, PERRLA Ears/Nose/Mouth/Throat: Mucous Membranes Moist Neck: NL Appearance and Movements; NL JVP Respiratory: Symmetrical Chest Expansion and Respiratory Effort, Clear to Auscultation Cardiovascular: RRR, - - Grade III systolic murmur Abdominal: NL Sounds; No Tenderness; No Distention Extremities: No Edema Skin: No Rash or Ulcers, No Nodules or Sclerosis Neurological: Alert and Oriented x 3, NL Muscle Strength and Tone Result Diagrams: 11/24/18 05:54 11/22/18 06:13 Assess/Plan/Problems-Billing Assessment: 83W with afib on AC s/p multiple failed ablations/cardioversions, 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 Patient is S/P ORIF right hip and OBI guided cardioversion. - Patient Problems (1) Dyspepsia Current Visit: Yes Status: Acute Code(s): R10.13 - EPIGASTRIC PAIN SNOMED Code(s): 120429121 Comment: -mild abd pain after meals, relieved with tums, will continue tums (2) Closed right hip fracture Current Visit: Yes Status: Acute Code(s): S72.001A - FRACTURE OF UNSP PART OF NECK OF RIGHT FEMUR, INIT SNOMED Code(s): 052348074 Comment: - ORIF 11/14. - Continue pain control and bowel regimen - PT/OT recommends SNF for rehab - Still needing [facility] to transfer. - DVT Prophylaxis with home Pradaxa, continue at least 30 days after surgery per ortho - Transfused 2u PRBC total. H&H remains stable (3) Atrial fibrillation Current Visit: Yes Status: Acute Code(s): I48.91 - UNSPECIFIED ATRIAL FIBRILLATION SNOMED Code(s): 92864759 Comment: - Recurrance of afib and possible RVR, with history of ablations and cardioversions. - Hard to control rates and hypotension. OBI cardioversion successful on 11/19/18 - Amiodarone increased to 200 mg, will continue for total one week and reduce back to home 100 mg - continue metoprolol - Needs at least 30 days of Pradaxa, to continue - currently rate-controlled (4) Heart failure with reduced ejection fraction Current Visit: Yes Status: Acute Code(s): I50.20 - UNSPECIFIED SYSTOLIC ( CONGESTIVE) HEART FAILURE SNOMED Code(s): 146282628 Comment: - Tachy-induced. - furosemide and spironolactone previously held in setting of hypotension and hypovolemia, since resumed and will continue - home potassium supplement held and K has been normal - no evidence of exacerbation at this time (5) Aortic stenosis Current Visit: Yes Status: Acute Code(s): I35.0 - NONRHEUMATIC AORTIC (VALVE ) STENOSIS SNOMED Code(s): 08887526 Comment: - F/U outpatient with Cardiology for ongoing monitoring and consideration of replacement. - Not in overt CHF. (6) Essential tremor Current Visit: Yes Status: Acute Code(s): G25.0 - ESSENTIAL TREMOR SNOMED Code(s): 228274446 Comment: - continue topiramate and primidone (7) Rhabdomyolysis Current Visit: Yes Status: Acute Code(s): M62.82 - RHABDOMYOLYSIS SNOMED Code(s): 767503666 Comment: - Present on admission from prolonged down-time. - Resolved, no evidence of ATN. (8) DVT prophylaxis Current Visit: Yes Status: Acute Code(s): Z29.9 - ENCOUNTER FOR PROPHYLACTIC MEASURES, UNSPECIFIED SNOMED Code(s): 936532524 Comment: -continue pradaxa per ortho (9) Full code status Current Visit: Yes Status: Acute Code(s): Z78.9 - OTHER SPECIFIED HEALTH STATUS SNOMED Code(s): 674549719 Status and Disposition: D/C to [place] for [facility] pending insurance authorization.
[2018-11-24] MEDS: Metoprolol Succinate XL TAB* 25 MG PO SCH (18:27)
[2018-11-25 05:49] LABS: Hematocrit 28 % (35-47); Hemoglobin 9.3 g/dL (12.0-16.0); Mean Corpuscular HGB Conc 34 g/dL (31-36); Mean Corpuscular Hemoglobin 33 pg (27-31); Mean Corpuscular Volume 97 fL (80-97); Mean Platelet Volume 7.6 fL (7.4-10.4); Platelet Count 241 10^3/uL (150-450); Red Blood Count 2.85 10^6 /uL (3.70-4.87); Red Cell Distribution Width 16 % (10-15); White Blood Count 5.6 10^3/uL (3.5-10.8)
[2018-11-25 07:58] VITALS: BP 107/44
--- NOTE | 2018-11-25 10:01 | DS ---
ADDENDUM TO PREVIOUS DISCHARGE SUMMARY DATE OF ADMISSION: 11/13/18 DATE OF DISCHARGE: 11/25/18 PHYSICAL EXAM: Unchanged from previous addendum. OF NOTE: Patient requests to have her dose of Spironolactone and Lasix postponed this morning as she is nervous about having to urinate during her ambulance ride to [place], and it would be of benefit if she was provided with these medications upon her arrival. DEX DARNELL [id number]/[facility] #: [id number] MTDD
[2018-11-25] MEDS: Multivitamins/Minerals TAB PO SCH (10:09)
[2018-11-25] MEDS: CMC:Dabigatran CAP(NF) 150 MG CAP PO SCH (10:09)
[2018-11-25] MEDS: Cyanocobalamin TAB* 500 MCG PO SCH (10:11)
[2018-11-25] MEDS: Primidone TAB(*) 50 MG PO SCH (10:12)
[2018-11-25] MEDS: Amiodarone TAB* 200 MG PO SCH (10:12)
[2018-11-25] MEDS: Gabapentin CAP(*) 300 MG PO SCH (10:12)
[2018-11-25] MEDS: Calcium/Vitamin D TAB 250/125* TAB PO SCH (10:13)
[2018-11-25] MEDS: Ferrous Gluconate TAB* 324 MG TAB PO SCH (10:13)
[2018-11-25] MEDS: Spironolactone TAB* 25 MG PO SCH (10:14)
[2018-11-25] MEDS: Furosemide TAB* 20 MG PO SCH (10:14)
[2018-11-25] MEDS: Fluticasone NASAL SPRAY 50MCG* 16 gm SPRAY BTL BOTH NARES SCH (10:14)
[2018-11-25] MEDS: Topiramate TAB(*) 25 MG PO SCH (10:14)
== END 2018-11-25 10:47 | DRG 480 ==
LOC: ED 15:04 → SSU 18:22
PROVIDERS: ADMIT Internal Medicine; ATTEND Internal Medicine
PROC: 0QW604Z Revision of Internal Fixation Device in Right Upper Femur, Open Approach (ICD-10-PCS; 2018-11-14)
PROC: 30233N1 Transfusion of Nonautologous Red Blood Cells into Peripheral Vein, Percutaneous Approach (ICD-10-PCS; 2018-11-14)
PROC: 0QS636Z Reposition Right Upper Femur with Intramedullary Internal Fixation Device, Percutaneous Approach (ICD-10-PCS; principal; 2018-11-14 11:09)
PROC: B246ZZ4 Ultrasonography of Right and Left Heart, Transesophageal (ICD-10-PCS; 2018-11-19)
PROC: 5A2204Z Restoration of Cardiac Rhythm, Single (ICD-10-PCS; 2018-11-19)
DX: S72.141A Displaced intertrochanteric fracture of right femur, initial encounter for closed fracture (principal); I50.43 Acute on chronic combined systolic (congestive) and diastolic (congestive) heart failure; I42.9 Cardiomyopathy, unspecified; M62.82 Rhabdomyolysis; I48.1 Persistent atrial fibrillation; I97.89 Other postprocedural complications and disorders of the circulatory system, not elsewhere classified; L89.102 Pressure ulcer of unspecified part of back, stage 2; I95.9 Hypotension, unspecified; E86.1 Hypovolemia; I11.0 Hypertensive heart disease with heart failure; I27.20 Pulmonary hypertension, unspecified; D64.9 Anemia, unspecified; G47.33 Obstructive sleep apnea (adult) (pediatric); E78.5 Hyperlipidemia, unspecified; G25.0 Essential tremor; I08.0 Rheumatic disorders of both mitral and aortic valves; R10.13 Epigastric pain; W18.39XA Other fall on same level, initial encounter; Q27.33 Arteriovenous malformation of digestive system vessel; Y92.009 Unspecified place in unspecified non-institutional (private) residence as the place of occurrence of the external cause; Z79.1 Long term (current) use of non-steroidal anti-inflammatories (NSAID); Z79.899 Other long term (current) drug therapy; Z88.2 Allergy status to sulfonamides; Z88.8 Allergy status to other drugs, medicaments and biological substances; Z82.49 Family history of ischemic heart disease and other diseases of the circulatory system; Z82.3 Family history of stroke; Z87.891 Personal history of nicotine dependence; Z79.01 Long term (current) use of anticoagulants
CPT/HCPCS: 36415; 71046; 71275; 76000; 80048; 80053; 81003; 81015; 82550; 82553; 82607; 82746; 83605; 83690; 83735; 83880; 85014; 85018; 85025; 85027; 85610; 86140; 86850; 86900; 86901; 86922; 88300; 92960; 93005; 93312; 93325; 94660; 99156; 99157; 99284; A9270-GY; C1713; C1776; G8978-GP-CL; G8979-GP-CI; G8987-GO-CL; G8988-GO-CI; J0690; J1100; J1240; J1644; J1885; J2250; J2310; J2405; J2704; J3010; J3490; P9040; Q9967

== ENCOUNTER → 2019-08-24 08:19 | Day surgery (SDC) | payer MEDICARE, OTHER ==
[~2019-08-24 08:19] MED LIST: Buffered Lidocaine 1% SYRIN* 1 ML/SYRINGE INTRADERM ONE; Dexamethasone TAB* 4 MG ONE; Dexamethasone TAB* 4 MG PO ONE; Famotidine IV* 10 MG/ML 2 ML (20 mg) IV ONE; Famotidine IV* 10 MG/ML 2 ML (20 mg) ONE; KETAMINE HCL* 50 MG/ML 10 ML VIAL ONE; Lactated Ringers 1000 ML Bag* 1,000 ML IV SCH; Lidocaine 1% MPF ** 5 ML VIAL ONE; Midazolam* 1 MG/ML 2 ML VIAL (2 MG) ONE; Naloxone* 0.4 MG/ML 1 ML VIAL IV PRN; Ondansetron INJ* 2 MG/ML VIAL IV ONE; Ondansetron INJ* 2 MG/ML VIAL ONE; PROCHLORPERAZINE INJ 5 MG/ML 2 ML VIAL IV PRN; Propofol* 10 MG/ML 20 ML BTL ONE; Succinylcholine* 20 MG/ML 10 ML VIAL ONE; fentaNYL* 50 MCG/ML 2 ML VIAL (100 MCG VIAL) ONE
[2019-08-24 10:49] VITALS: BP 108/51
--- NOTE | 2019-08-24 12:53 | CARD ---
CC: Dr. Marsha Prado DATE OF PROCEDURE: 08/24/2019. PROCEDURE PERFORMED: Cardioversion. INDICATION: Atrial fibrillation. HISTORY: The patient is an 84-year-old female with a history of paroxysmal atrial fibrillation. She is on chronic anticoagulation with Pradaxa. She is on Amiodarone. PROCEDURE: The patient was in a fasting state. Informed consent had been obtained prior to the procedure. Anesthesia was administered Dr Phyllis from Anesthesia. The patient was fully sedated at the time of cardioversion. The patient was cardioverted with 120 joules of synchronized by biphasic energy. The patient converted to a normal sinus rhythm. The patient tolerated the procedure well. There were no complications. The patient will follow-up with Dr. Prado. [id number]/[facility] #: [id number] [facility]
== END | disposition home or self-care (01) ==
LOC: OR 08:19
PROVIDERS: ATTEND Specialist
DX: I48.0 Paroxysmal atrial fibrillation (principal); Z79.01 Long term (current) use of anticoagulants; I35.0 Nonrheumatic aortic (valve) stenosis; Z87.891 Personal history of nicotine dependence; G47.33 Obstructive sleep apnea (adult) (pediatric); I11.0 Hypertensive heart disease with heart failure; R25.1 Tremor, unspecified; I50.9 Heart failure, unspecified; R06.02 Shortness of breath; R60.9 Edema, unspecified; R42 Dizziness and giddiness; I44.7 Left bundle-branch block, unspecified; I42.9 Cardiomyopathy, unspecified
CPT/HCPCS: 92960; 93005; J0330; J2250; J2405; J2704; J3010; J8540

== ENCOUNTER 2020-03-07 18:47 | Inpatient (IN) ==
[2020-03-07] MEDS ORDERED: NS 0.9% 1000 ml BAG 1,000 ML IV ONE (19:01)
[2020-03-07] MEDS ORDERED: Pantoprazole VIAL 40 MG VIAL IV ONE (19:02)
[2020-03-07 19:59] LABS: ABS Lymphocytes 0.7 10^3/ul (1.0-4.8); ABS Monocytes 0.4 10^3/ul (0-0.8); ABS Neutrophils 2.9 10^3/ul (1.5-7.7); Eosinophil % 0.2 %; Hematocrit 22 % (35-47); Hemoglobin 6.9 g/dL (12.0-16.0); Lymphocyte % 17.9 %; Mean Corpuscular HGB Conc 32 g/dL (31-36); Mean Corpuscular Hemoglobin 33 pg (27-31); Mean Corpuscular Volume 102 fL (80-97); Platelet Count 158 10^3/uL (150-450); Red Blood Count 2.11 10^6 /uL (3.70-4.87); Red Cell Distribution Width 18 % (10-15)
[2020-03-07 20:08] LABS: Activated Partial Thrombo Time 46.2 seconds (26.0-38.0); INR 1.41 (0.82-1.09)
[2020-03-07 20:15] LABS: ALT 8 U/L (7-52); AST 13 U/L (13-39); Albumin 2.9 g/dL (3.2-5.2); Albumin/Globulin Ratio 1.1 (1-3); Alkaline Phosphatase 70 U/L (34-104); BUN/Creatinine Ratio 27.2 (8-20); Blood Urea Nitrogen 31 mg/dL (6-24); C Reactive Protein 8.97 mg/L (<8.01); CO2 Carbon Dioxide 25 mmol/L (22-32); Calcium 8.1 mg/dL (8.6-10.3); EGFR African American 54.6 (>60); EGFR Non-African American 45.1 (>60); Globulin 2.6 g/dL (2-4); Glucose 102 mg/dL (70-100); Potassium 4.2 mmol/L (3.5-5.0); Sodium 143 mmol/L (135-145); Total Protein 5.5 g/dL (6.4-8.9)
[2020-03-07 20:16] LABS: Anion Gap 5 mmol/L (2-11); Chloride 113 mmol/L (101-111)
[2020-03-07 20:20] LABS: Troponin I 0.03 ng/mL (<0.03)
[2020-03-07] MEDS ORDERED: Iodixanol (CONTRAST) 320 MG/ML 100 ML SDV IV ONE (20:44)
[2020-03-07] MEDS: Pantoprazole 80 mg in NS BAG 80 MG/250 ML BAG IV ONE (21:51)
[2020-03-07 22:57] LABS: Total Iron Binding Capacity 280 mcg/dL (250-450); Transferrin 200 mg/dL (203-362)
[2020-03-07 22:59] LABS: % Iron Saturation 7 % (15-55); Iron < 20 ug/dL (50-212); Unsaturated Iron Binding < 265 ug/dL
[2020-03-07 23:16] LABS: Ferritin 12.1 ng/mL (11-307)
[2020-03-08] MEDS ORDERED: Furosemide 20 mg/2 ml IV VIAL IV SLOW PU ONE (01:32)
[2020-03-08] MEDS: Pantoprazole 80 mg in NS BAG 80 MG/250 ML BAG IV ONE (03:24)
[2020-03-08] MEDS ORDERED: Influenza VAC *QUAD* 2020-21* 0.5 ML SYRINGE IM ONE (09:00)
[2020-03-08 10:01] LABS: Hematocrit 28 % (35-47); Hemoglobin 8.9 g/dL (12.0-16.0); Mean Corpuscular HGB Conc 32 g/dL (31-36); Mean Corpuscular Hemoglobin 29 pg (27-31); Mean Corpuscular Volume 91 fL (80-97); Mean Platelet Volume 7.5 fL (7.4-10.4); Platelet Count 131 10^3/uL (150-450); Red Blood Count 3.09 10^6 /uL (3.70-4.87); White Blood Count 4.3 10^3/uL (3.5-10.8)
[2020-03-08 10:18] LABS: BUN/Creatinine Ratio 26.6 (8-20); Calcium 7.4 mg/dL (8.6-10.3); EGFR African American 68.2 (>60); EGFR Non-African American 56.3 (>60); Potassium 3.8 mmol/L (3.5-5.0)
[2020-03-08 10:28] LABS: ABS Basophils 0.1 10^3/ul (0-0.2); ABS Eosinophils 0.1 10^3/ul (0-0.6); ABS Lymphocytes 1.2 10^3/ul (1.0-4.8); ABS Monocytes 0.5 10^3/ul (0-0.8); ABS Neutrophils 2.5 10^3/ul (1.5-7.7); Eosinophil % 1.9 %; Lymphocyte % 28.5 %; Red Cell Distribution Width 24 % (10-15)
[2020-03-08] MEDS: Pantoprazole VIAL 40 MG VIAL IV SCH (21:01)
[2020-03-09 05:42] LABS: ABS Eosinophils 0.1 10^3/ul (0-0.6); ABS Lymphocytes 1.2 10^3/ul (1.0-4.8); ABS Monocytes 0.4 10^3/ul (0-0.8); ABS Neutrophils 2.8 10^3/ul (1.5-7.7); Eosinophil % 2.7 %; Hematocrit 25 % (35-47); Hemoglobin 8.1 g/dL (12.0-16.0); Lymphocyte % 26.9 %; Mean Corpuscular HGB Conc 32 g/dL (31-36); Mean Corpuscular Hemoglobin 29 pg (27-31); Mean Corpuscular Volume 90 fL (80-97); Mean Platelet Volume 7.8 fL (7.4-10.4); Platelet Count 118 10^3/uL (150-450); Red Blood Count 2.82 10^6 /uL (3.70-4.87); Red Cell Distribution Width 23 % (10-15); White Blood Count 4.6 10^3/uL (3.5-10.8)
[2020-03-09 05:59] LABS: BUN/Creatinine Ratio 23.2 (8-20); Calcium 7.2 mg/dL (8.6-10.3); EGFR African American 67.3 (>60); EGFR Non-African American 55.6 (>60); Potassium 3.6 mmol/L (3.5-5.0)
[2020-03-09] MEDS: Pantoprazole VIAL 40 MG VIAL IV SCH ×2 (08:40→20:36)
[2020-03-09] MEDS ORDERED: Iron Sucrose 200 MG in NS 0.9% 100 ml BAG 100 ML IVPB ONE (10:30)
[2020-03-09] MEDS ORDERED: fentaNYL 100 mcg/2 ml 50 MCG/ML VIAL ONE (13:55)
[2020-03-09] MEDS ORDERED: Midazolam 10 mg/10 ml VIAL 1 mg/ml 10 ml VIAL (10 mg) ONE (13:55)
[2020-03-10 06:06] LABS: ABS Eosinophils 0.1 10^3/ul (0-0.6); ABS Monocytes 0.4 10^3/ul (0-0.8); Eosinophil % 1.8 %; Hematocrit 25 % (35-47); Hemoglobin 8.3 g/dL (12.0-16.0); Lymphocyte % 21.6 %; Mean Corpuscular HGB Conc 33 g/dL (31-36); Mean Corpuscular Hemoglobin 29 pg (27-31); Mean Corpuscular Volume 89 fL (80-97); Mean Platelet Volume 7.8 fL (7.4-10.4); Platelet Count 118 10^3/uL (150-450); Red Blood Count 2.86 10^6 /uL (3.70-4.87); Red Cell Distribution Width 22 % (10-15); White Blood Count 4.5 10^3/uL (3.5-10.8)
[2020-03-10] MEDS: Pantoprazole VIAL 40 MG VIAL IV SCH ×2 (09:05→20:45)
[2020-03-10] MEDS ORDERED: Iron Sucrose 200 MG in NS 0.9% 100 ml BAG 100 ML IVPB ONE (10:00)
[2020-03-10] MEDS: Dabigatran 150 mg CAP (NF) PO SCH (20:48)
[2020-03-11 07:04] LABS: Hematocrit 25 % (35-47); Hemoglobin 7.7 g/dL (12.0-16.0); Mean Corpuscular HGB Conc 32 g/dL (31-36); Mean Corpuscular Hemoglobin 29 pg (27-31); Mean Corpuscular Volume 90 fL (80-97); Platelet Count 114 10^3/uL (150-450); Red Blood Count 2.72 10^6 /uL (3.70-4.87); Red Cell Distribution Width 22 % (10-15); White Blood Count 4.3 10^3/uL (3.5-10.8)
[2020-03-11 07:19] LABS: ALT 6 U/L (7-52); AST 11 U/L (13-39); Albumin 2.2 g/dL (3.2-5.2); Alkaline Phosphatase 62 U/L (34-104); Anion Gap 1 mmol/L (2-11); BUN/Creatinine Ratio 19.1 (8-20); Blood Urea Nitrogen 18 mg/dL (6-24); CO2 Carbon Dioxide 27 mmol/L (22-32); Calcium 7.4 mg/dL (8.6-10.3); Chloride 111 mmol/L (101-111); EGFR African American 68.2 (>60); EGFR Non-African American 56.3 (>60); Globulin 2.1 g/dL (2-4); Glucose 87 mg/dL (70-100); Magnesium 1.9 mg/dL (1.9-2.7); Potassium 3.4 mmol/L (3.5-5.0); Sodium 139 mmol/L (135-145); Total Protein 4.3 g/dL (6.4-8.9)
[2020-03-11] MEDS ORDERED: Potassium Chloride LIQUID 20 MEQ/15 ML LIQUID PO ONE (08:18)
[2020-03-11] MEDS: Pantoprazole VIAL 40 MG VIAL IV SCH ×2 (08:22→19:52)
[2020-03-11] MEDS ORDERED: Iron Sucrose 200 MG in NS 0.9% 100 ml BAG 100 ML IVPB ONE (09:00)
[2020-03-11] MEDS: Dabigatran 150 mg CAP (NF) PO SCH (12:45)
[2020-03-11 15:05] LABS: Hematocrit 28 % (35-47); Hemoglobin 8.5 g/dL (12.0-16.0)
[2020-03-12 06:48] LABS: Hematocrit 24 % (35-47); Hemoglobin 7.7 g/dL (12.0-16.0); Mean Corpuscular HGB Conc 32 g/dL (31-36); Mean Corpuscular Hemoglobin 29 pg (27-31); Mean Corpuscular Volume 91 fL (80-97); Mean Platelet Volume 7.9 fL (7.4-10.4); Platelet Count 124 10^3/uL (150-450); Red Blood Count 2.69 10^6 /uL (3.70-4.87); Red Cell Distribution Width 22 % (10-15); White Blood Count 4.7 10^3/uL (3.5-10.8)
[2020-03-12 07:05] LABS: BUN/Creatinine Ratio 18.6 (8-20); Blood Urea Nitrogen 18 mg/dL (6-24); CO2 Carbon Dioxide 28 mmol/L (22-32); Calcium 7.5 mg/dL (8.6-10.3); Chloride 110 mmol/L (101-111); EGFR African American 65.7 (>60); EGFR Non-African American 54.3 (>60); Glucose 80 mg/dL (70-100); Potassium 4.2 mmol/L (3.5-5.0); Sodium 138 mmol/L (135-145)
[2020-03-13 06:13] LABS: Hematocrit 24 % (35-47); Hemoglobin 7.8 g/dL (12.0-16.0); Mean Corpuscular HGB Conc 32 g/dL (31-36); Mean Corpuscular Hemoglobin 29 pg (27-31); Mean Corpuscular Volume 90 fL (80-97); Mean Platelet Volume 7.9 fL (7.4-10.4); Platelet Count 125 10^3/uL (150-450); Red Blood Count 2.69 10^6 /uL (3.70-4.87); Red Cell Distribution Width 22 % (10-15); White Blood Count 3.3 10^3/uL (3.5-10.8)
[2020-03-13 06:32] LABS: BUN/Creatinine Ratio 16.2 (8-20); Calcium 7.4 mg/dL (8.6-10.3); EGFR Non-African American 49.6 (>60)
[2020-03-14 07:10] LABS: ABS Eosinophils 0.1 10^3/ul (0-0.6); ABS Lymphocytes 1.3 10^3/ul (1.0-4.8); ABS Monocytes 0.3 10^3/ul (0-0.8); ABS Neutrophils 1.9 10^3/ul (1.5-7.7); Eosinophil % 2.4 %; Hematocrit 23 % (35-47); Hemoglobin 7.3 g/dL (12.0-16.0); Lymphocyte % 35.6 %; Mean Corpuscular HGB Conc 32 g/dL (31-36); Mean Corpuscular Hemoglobin 29 pg (27-31); Mean Corpuscular Volume 91 fL (80-97); Platelet Count 119 10^3/uL (150-450); Red Blood Count 2.51 10^6 /uL (3.70-4.87); Red Cell Distribution Width 22 % (10-15); White Blood Count 3.6 10^3/uL (3.5-10.8)
[2020-03-15 06:10] LABS: Hematocrit 23 % (35-47); Hemoglobin 7.2 g/dL (12.0-16.0)
[2020-03-15 11:57] VITALS: BP 113/40
== END 2020-03-15 14:10 | DRG 378 ==
LOC: ED 18:47 → MEDTELE 22:16
PROVIDERS: ADMIT Hospitalist; ATTEND Internal Medicine

== ENCOUNTER 2021-03-15 20:51 | Inpatient (IN) ==
[2021-03-15] MEDS ORDERED: NS 0.9% 1000 ml BAG 1,000 ML IV ONE (21:14)
[2021-03-15 21:49] LABS: ABS Lymphocytes 0.3 10^3/ul (1.0-4.8); ABS Monocytes 0.5 10^3/ul (0-0.8); ABS Neutrophils 10.2 10^3/ul (1.5-7.7); Hematocrit 35 % (35-47); Hemoglobin 11.5 g/dL (12.0-16.0); Lymphocyte % 2.4 %; Mean Corpuscular HGB Conc 33 g/dL (31-36); Mean Corpuscular Hemoglobin 33 pg (27-31); Mean Corpuscular Volume 98 fL (80-97); Mean Platelet Volume 8.3 fL (7.4-10.4); Platelet Count 155 10^3/uL (150-450); Red Blood Count 3.51 10^6 /uL (3.70-4.87); Red Cell Distribution Width 15 % (10-15)
[2021-03-15 22:07] LABS: ALT 7 U/L (7-52); AST 15 U/L (13-39); Albumin 3.3 g/dL (3.2-5.2); Albumin/Globulin Ratio 0.8 (1-3); Alkaline Phosphatase 90 U/L (35-149); Anion Gap 7 mmol/L (2-11); Blood Urea Nitrogen 24 mg/dL (6-24); CO2 Carbon Dioxide 28 mmol/L (22-32); Chloride 100 mmol/L (101-111); Creatine Kinase 97 U/L (10-223); Glucose 163 mg/dL (70-100); Magnesium 1.8 mg/dL (1.9-2.7); Potassium 3.8 mmol/L (3.5-5.0); Sodium 135 mmol/L (135-145); Total Protein 7.3 g/dL (6.4-8.9)
[2021-03-15 22:22] LABS: INR 1.2 (0.86-1.15)
[2021-03-15 22:25] LABS: Troponin I 0.34 ng/mL (<0.03)
[2021-03-16] MEDS ORDERED: NS 0.9% 1000 ml BAG 1,000 ML IV SCH (00:30)
[2021-03-16 01:58] LABS: Rapid COVID-19 Molecular Undetected (Undetected)
[2021-03-16] MEDS ORDERED: Magnesium Sulfate 2 gm BAG 2 GM/50 ML BAG IVPB ONE (02:13)
[2021-03-16] MEDS ORDERED: Potassium Chlor 20 meq TAB.ER PO ONE (02:30)
[2021-03-16 04:11] LABS: Troponin I 1.42 ng/mL (<0.03)
[2021-03-16 08:44] LABS: Troponin I 2.62 ng/mL (<0.03)
[2021-03-16] MEDS ORDERED: Flu vaccine *QUAD* 2021-22* 0.5 ML SYRINGE IM ONE (09:00)
[2021-03-16] MEDS: IVABRADINE 5 MG PO SCH (09:03)
[2021-03-16 12:11] LABS: Creatine Kinase 222 U/L (10-223)
[2021-03-16 12:14] LABS: Creatine Kinase 166 U/L (10-223)
[2021-03-16 12:16] LABS: CKMB ng/mL 6.4 ng/mL (0.6-6.3)
[2021-03-16 12:20] LABS: CKMB ng/mL 2.5 ng/mL (0.6-6.3)
[2021-03-16 12:20] LABS: CKMB ng/mL 5.1 ng/mL (0.6-6.3)
[2021-03-16 13:45] LABS: Troponin I 2.24 ng/mL (<0.03)
[2021-03-16 14:27] LABS: Cholesterol 115 mg/dL; HDL Cholesterol 47.8 mg/dL; LDL Cholesterol 58 mg/dL; Triglycerides 45 mg/dL
[2021-03-16] MEDS: cefTRIAXone 1 gm/50 mL NS BAG 1 GM/50 ML BAG IVPB SCH (21:52)
[2021-03-16 21:58] LABS: Urine Appearance Cloudy; Urine Bilirubin Negative (Negative); Urine Blood 1+ (Negative); Urine Color Amber; Urine Glucose Negative (Negative); Urine Ketones Negative (Negative); Urine Nitrite Negative (Negative); Urine Protein 1+(30 mg/dL) (Negative); Urine Specific Gravity 1.021 (1.002-1.030); Urine Urobilinogen Positive (Negative)
[2021-03-16 22:29] LABS: Urine Bacteria Absent (Absent); Urine Granular Casts Present (Absent); Urine Red Blood Cell Absent (Absent); Urine Squamous Epithelial Cell Present (Absent); Urine White Blood Cell Absent (Absent)
[2021-03-17] MEDS: IVABRADINE 5 MG PO SCH ×3 (01:11→21:40)
[2021-03-17 03:49] LABS: Influenza A Molecular Negative (Negative); Influenza B Molecular Negative (Negative)
[2021-03-17 06:31] LABS: ABS Lymphocytes 0.9 10^3/ul (1.0-4.8); ABS Monocytes 0.6 10^3/ul (0-0.8); ABS Neutrophils 6.2 10^3/ul (1.5-7.7); Eosinophil % 0.1 %; Hematocrit 26 % (35-47); Hemoglobin 8.8 g/dL (12.0-16.0); Mean Corpuscular HGB Conc 33 g/dL (31-36); Mean Corpuscular Hemoglobin 33 pg (27-31); Mean Corpuscular Volume 98 fL (80-97); Mean Platelet Volume 8.5 fL (7.4-10.4); Platelet Count 102 10^3/uL (150-450); Red Blood Count 2.69 10^6 /uL (3.70-4.87); Red Cell Distribution Width 15 % (10-15); White Blood Count 7.8 10^3/uL (3.5-10.8)
[2021-03-17 06:50] LABS: Calcium 7.8 mg/dL (8.6-10.3); Magnesium 2.2 mg/dL (1.9-2.7); Potassium 3.8 mmol/L (3.5-5.0)
[2021-03-17 10:23] LABS: Albumin 2.4 g/dL (3.2-5.2); Albumin/Globulin Ratio 0.8 (1-3); Direct Bilirubin 0.2 mg/dL (0.03-0.18); Indirect Bilirubin 0.3 mg/dL (0.3-1.0); Total Bilirubin 0.5 mg/dL (0.2-1.0); Total Protein 5.4 g/dL (6.4-8.9)
[2021-03-17] MEDS: cefTRIAXone 1 gm/50 mL NS BAG 1 GM/50 ML BAG IVPB SCH (21:42)
[2021-03-18] MEDS: IVABRADINE 5 MG PO SCH ×2 (09:30→22:53)
[2021-03-18 10:15] LABS: ABS Lymphocytes 0.6 10^3/ul (1.0-4.8); ABS Monocytes 0.4 10^3/ul (0-0.8); ABS Neutrophils 6.1 10^3/ul (1.5-7.7); Eosinophil % 0.3 %; Hematocrit 30 % (35-47); Hemoglobin 9.8 g/dL (12.0-16.0); Mean Corpuscular HGB Conc 33 g/dL (31-36); Mean Corpuscular Hemoglobin 32 pg (27-31); Mean Corpuscular Volume 98 fL (80-97); Mean Platelet Volume 8.6 fL (7.4-10.4); Platelet Count 134 10^3/uL (150-450); Red Blood Count 3.05 10^6 /uL (3.70-4.87); Red Cell Distribution Width 15 % (10-15); White Blood Count 7.2 10^3/uL (3.5-10.8)
[2021-03-18 10:30] LABS: Potassium 3.6 mmol/L (3.5-5.0)
[2021-03-18] MEDS: cefTRIAXone 1 gm/50 mL NS BAG 1 GM/50 ML BAG IVPB SCH (21:33)
[2021-03-19 06:37] LABS: ABS Eosinophils 0.1 10^3/ul (0-0.6); ABS Lymphocytes 0.9 10^3/ul (1.0-4.8); ABS Monocytes 0.6 10^3/ul (0-0.8); ABS Neutrophils 4.4 10^3/ul (1.5-7.7); Eosinophil % 1.2 %; Hematocrit 29 % (35-47); Hemoglobin 9.7 g/dL (12.0-16.0); Lymphocyte % 14.5 %; Mean Corpuscular HGB Conc 34 g/dL (31-36); Mean Corpuscular Hemoglobin 33 pg (27-31); Mean Corpuscular Volume 97 fL (80-97); Mean Platelet Volume 8.6 fL (7.4-10.4); Nucleated Red Blood Cells % 0.1; Platelet Count 134 10^3/uL (150-450); Red Blood Count 2.95 10^6 /uL (3.70-4.87); Red Cell Distribution Width 15 % (10-15)
[2021-03-19 06:48] LABS: Calcium 7.8 mg/dL (8.6-10.3); Magnesium 1.9 mg/dL (1.9-2.7); Potassium 3.9 mmol/L (3.5-5.0)
[2021-03-19] MEDS ORDERED: Magnesium Sulfate IV 1GM/100ML 1 GM/100 ML BAG IV ONE (07:50)
[2021-03-19] MEDS ORDERED: Potassium Chlor 10 meq TAB PO ONE (07:51)
[2021-03-19 08:06] LABS: C Reactive Protein 137.94 mg/L (<8.01)
[2021-03-19] MEDS ORDERED: Flu vaccine *QUAD* 2021-22* 0.5 ML SYRINGE IM ONE (09:00)
[2021-03-19] MEDS: IVABRADINE 5 MG PO SCH ×2 (09:19→21:18)
[2021-03-19] MEDS ORDERED: Regadenoson 0.4 MG/5 ML SYRINGE ONE (11:24)
[2021-03-19] MEDS ORDERED: Aminophylline 25 MG/ML VIAL ONE (11:24)
[2021-03-19] MEDS: cefTRIAXone 1 gm/50 mL NS BAG 1 GM/50 ML BAG IVPB SCH (21:14)
[2021-03-20 04:42] LABS: ABS Eosinophils 0.1 10^3/ul (0-0.6); ABS Lymphocytes 0.8 10^3/ul (1.0-4.8); ABS Monocytes 0.8 10^3/ul (0-0.8); ABS Neutrophils 4.5 10^3/ul (1.5-7.7); Eosinophil % 1.6 %; Hematocrit 30 % (35-47); Hemoglobin 9.8 g/dL (12.0-16.0); Lymphocyte % 13.1 %; Mean Corpuscular HGB Conc 33 g/dL (31-36); Mean Corpuscular Hemoglobin 32 pg (27-31); Mean Corpuscular Volume 97 fL (80-97); Mean Platelet Volume 8.1 fL (7.4-10.4); Platelet Count 177 10^3/uL (150-450); Red Cell Distribution Width 15 % (10-15); White Blood Count 6.3 10^3/uL (3.5-10.8)
[2021-03-20 04:56] LABS: Calcium 8.1 mg/dL (8.6-10.3); Potassium 4.4 mmol/L (3.5-5.0)
[2021-03-20] MEDS: IVABRADINE 5 MG PO SCH ×2 (09:42→21:24)
[2021-03-20] MEDS: cefTRIAXone 1 gm/50 mL NS BAG 1 GM/50 ML BAG IVPB SCH (21:14)
[2021-03-21 08:01] LABS: Hematocrit 31 % (35-47); Hemoglobin 10.1 g/dL (12.0-16.0); Mean Corpuscular HGB Conc 33 g/dL (31-36); Mean Corpuscular Hemoglobin 32 pg (27-31); Mean Corpuscular Volume 98 fL (80-97); Platelet Count 180 10^3/uL (150-450); Red Blood Count 3.11 10^6 /uL (3.70-4.87); Red Cell Distribution Width 15 % (10-15); White Blood Count 5.5 10^3/uL (3.5-10.8)
[2021-03-21 08:18] LABS: C Reactive Protein 131.17 mg/L (<8.01); Calcium 8.3 mg/dL (8.6-10.3); Magnesium 1.9 mg/dL (1.9-2.7); Potassium 4.4 mmol/L (3.5-5.0)
[2021-03-21] MEDS: IVABRADINE 5 MG PO SCH ×2 (08:38→21:53)
[2021-03-21] MEDS: cefTRIAXone 1 gm/50 mL NS BAG 1 GM/50 ML BAG IVPB SCH (21:45)
[2021-03-22] MEDS ORDERED: Buffered Lidocaine 1% SYRIN 1 ml INTRADERM ONE (06:00)
[2021-03-22] MEDS: Lactated Ringers 1000 ml BAG 1,000 ML IV SCH ×2 (06:13→13:00)
[2021-03-22 06:20] LABS: ABS Eosinophils 0.2 10^3/ul (0-0.6); ABS Lymphocytes 1.2 10^3/ul (1.0-4.8); ABS Monocytes 0.7 10^3/ul (0-0.8); ABS Neutrophils 3.4 10^3/ul (1.5-7.7); Eosinophil % 3.3 %; Hematocrit 31 % (35-47); Hemoglobin 10.3 g/dL (12.0-16.0); Lymphocyte % 21.3 %; Mean Corpuscular HGB Conc 33 g/dL (31-36); Mean Corpuscular Hemoglobin 32 pg (27-31); Mean Corpuscular Volume 97 fL (80-97); Mean Platelet Volume 8.3 fL (7.4-10.4); Nucleated Red Blood Cells % 0.1; Platelet Count 208 10^3/uL (150-450); Red Blood Count 3.23 10^6 /uL (3.70-4.87); Red Cell Distribution Width 15 % (10-15); White Blood Count 5.4 10^3/uL (3.5-10.8)
[2021-03-22 06:38] LABS: C Reactive Protein 115.94 mg/L (<8.01); Calcium 8.2 mg/dL (8.6-10.3); Magnesium 1.9 mg/dL (1.9-2.7); Potassium 4.2 mmol/L (3.5-5.0)
[2021-03-22] MEDS ORDERED: Midazolam 2 mg/2 ml VIAL 1 mg/ml 2 ml VIAL (2 mg) ONE (06:44)
[2021-03-22] MEDS ORDERED: Ondansetron 4 mg VIAL 2 MG/ML 2 ml VIAL ONE (06:45)
[2021-03-22] MEDS ORDERED: Propofol 10 MG/ML 20 ML BTL ONE (06:45)
[2021-03-22] MEDS ORDERED: Phenylephrine 40 mcg/mL 10mL (400mcg) SYRINGE ONE (06:46)
[2021-03-22] MEDS ORDERED: Lidocaine 2% PF 5 ML VIAL ONE (06:46)
[2021-03-22] MEDS ORDERED: Magnesium Sulfate IV 1GM/100ML 1 GM/100 ML BAG IV ONE (08:00)
[2021-03-22] MEDS ORDERED: Ketamine HCL 50 mg/ml 10 ml VIAL (500 MG) ONE (09:08)
[2021-03-22] MEDS: IVABRADINE 5 MG PO SCH ×2 (11:14→15:12)
[2021-03-22 11:23] VITALS: BP 106/48
== END 2021-03-22 16:33 | DRG 281 ==
LOC: ED 20:51 → SUATTDRO 03-16 00:21 → MEDTELE 03-16 00:21
PROVIDERS: ADMIT Internal Medicine; ATTEND Internal Medicine
PROC: O.CATEE (2021-03-22 09:45)

== ENCOUNTER 2022-03-17 14:35 | Inpatient (IN) ==
[2022-03-17 17:51] LABS: Hematocrit 36 % (35-47); Hemoglobin 10.5 g/dL (12.0-16.0); Mean Corpuscular HGB Conc 30 g/dL (31-36); Mean Corpuscular Hemoglobin 24 pg (27-31); Mean Corpuscular Volume 80 fL (80-97); Mean Platelet Volume 8.1 fL (7.4-10.4); Platelet Count 151 10^3/uL (150-450); Red Blood Count 4.46 10^6 /uL (3.70-4.87); Red Cell Distribution Width 26 % (10-15); White Blood Count 5.9 10^3/uL (3.5-10.8)
[2022-03-17 18:16] LABS: Albumin 2.9 g/dL (3.2-5.2); Albumin/Globulin Ratio 0.9 (1-3); C Reactive Protein 32.58 mg/L (<8.01); Calcium 7.9 mg/dL (8.6-10.3); Globulin 3.1 g/dL (2-4); Magnesium 2.3 mg/dL (1.9-2.7); Potassium 4.2 mmol/L (3.5-5.0); Total Bilirubin 0.5 mg/dL (0.2-1.0); eGFR CKD-EPI 41.6 (>60)
[2022-03-17 18:26] LABS: ABS Lymphocytes 2.2 10^3/ul (1.0-4.8); ABS Monocytes 0.4 10^3/ul (0-0.8); ABS Neutrophils 3.2 10^3/ul (1.5-7.7); Eosinophil % 0.5 %; Nucleated Red Blood Cells % 0.1
[2022-03-17 18:26] LABS: TSH Ultra Thyroid Stim Horm 1.99 mcIU/mL (0.34-5.60)
[2022-03-17 19:06] LABS: High Sensitivity Troponin 1 Hr 17 pg/mL (<15)
[2022-03-17] MEDS ORDERED: Furosemide 40 mg/4 ml IV VIAL IV ONE (20:43)
[2022-03-17 22:33] LABS: Urine Appearance Clear; Urine Bilirubin Negative (Negative); Urine Blood 1+ (Negative); Urine Color Yellow; Urine Glucose Negative (Negative); Urine Ketones Negative (Negative); Urine Nitrite Negative (Negative); Urine Protein 1+(30 mg/dL) (Negative); Urine Specific Gravity 1.015 (1.002-1.030); Urine Urobilinogen Negative (Negative)
[2022-03-17 23:00] LABS: Urine Bacteria 1+ (Absent); Urine Red Blood Cell 2+(6-10/hpf) (Absent); Urine Squamous Epithelial Cell Present (Absent); Urine White Blood Cell 3+(>20/hpf) (Absent)
[2022-03-18] MEDS: Zinc Oxide 16% PASTE (Butt Paste) 30 gm TUBE TOPICAL SCH ×4 (04:06→20:09)
[2022-03-18 08:16] LABS: INR 1.16 (0.89-1.11)
[2022-03-18 08:27] LABS: Hematocrit 35 % (35-47); Hemoglobin 10.3 g/dL (12.0-16.0); Mean Corpuscular HGB Conc 29 g/dL (31-36); Mean Corpuscular Hemoglobin 24 pg (27-31); Mean Corpuscular Volume 80 fL (80-97); Platelet Count 149 10^3/uL (150-450); Red Blood Count 4.34 10^6 /uL (3.70-4.87); Red Cell Distribution Width 25 % (10-15); White Blood Count 5.2 10^3/uL (3.5-10.8)
[2022-03-18 08:33] LABS: Calcium 7.8 mg/dL (8.6-10.3); Magnesium 2.2 mg/dL (1.9-2.7); Potassium 4.1 mmol/L (3.5-5.0); eGFR CKD-EPI 40.8 (>60)
[2022-03-18 08:51] LABS: Ferritin 22.1 ng/mL (11-307)
[2022-03-18] MEDS ORDERED: Furosemide 20 mg/2 ml IV VIAL IV ONE (09:13)
[2022-03-18] MEDS ORDERED: Iron Sucrose 20 MG/ML 5 ML VIAL IV PUSH ONE (09:20)
[2022-03-18] MEDS ORDERED: Furosemide 40 mg/4 ml IV VIAL IV ONE (09:21)
[2022-03-18 09:40] LABS: Digoxin 1.2 ng/ml (0.8-2.0)
[2022-03-18] MEDS ORDERED: Iron Sucrose 200 MG in NS 0.9% 100 ml IVPB ONE (10:00)
[2022-03-18 10:01] LABS: Anisocytosis 3+; Hypochromasia 3+; Microcytosis 1+
[2022-03-18 10:06] LABS: ABS Eosinophils 0.1 10^3/ul (0-0.6); ABS Lymphocytes 0.8 10^3/ul (1.0-4.8); ABS Neutrophils 3.8 10^3/ul (1.5-7.7)
[2022-03-18] MEDS: Cholecalciferol (VIT D3) 1,000 unit TAB PO SCH ×2 (10:11→20:08)
[2022-03-18] MEDS: IVABRADINE 5 MG PO SCH (10:31)
[2022-03-19] MEDS: IVABRADINE 5 MG PO SCH ×3 (03:12→21:41)
[2022-03-19 05:56] LABS: Hematocrit 36 % (35-47); Hemoglobin 10.8 g/dL (12.0-16.0); Mean Corpuscular HGB Conc 30 g/dL (31-36); Mean Corpuscular Hemoglobin 24 pg (27-31); Mean Corpuscular Volume 79 fL (80-97); Mean Platelet Volume 8.3 fL (7.4-10.4); Platelet Count 153 10^3/uL (150-450); Red Cell Distribution Width 26 % (10-15); White Blood Count 5.1 10^3/uL (3.5-10.8)
[2022-03-19 06:13] LABS: Magnesium 2.1 mg/dL (1.9-2.7); Potassium 3.8 mmol/L (3.5-5.0); eGFR CKD-EPI 42.8 (>60)
[2022-03-19] MEDS: Cholecalciferol (VIT D3) 1,000 unit TAB PO SCH ×2 (09:29→21:35)
[2022-03-19] MEDS: Zinc Oxide 16% PASTE (Butt Paste) 30 gm TUBE TOPICAL SCH ×3 (09:33→21:45)
[2022-03-19] MEDS ORDERED: Furosemide 40 mg/4 ml IV VIAL IV ONE (10:55)
[2022-03-19] MEDS ORDERED: Potassium Chlor 20 meq TAB.ER PO ONE (16:34)
[2022-03-20 06:19] LABS: Hematocrit 33 % (35-47); Mean Corpuscular HGB Conc 31 g/dL (31-36); Mean Corpuscular Hemoglobin 24 pg (27-31); Mean Corpuscular Volume 78 fL (80-97); Mean Platelet Volume 8.3 fL (7.4-10.4); Nucleated Red Blood Cells % 0.2; Platelet Count 148 10^3/uL (150-450); Red Blood Count 4.22 10^6 /uL (3.70-4.87); Red Cell Distribution Width 26 % (10-15); White Blood Count 5.4 10^3/uL (3.5-10.8)
[2022-03-20 06:37] LABS: eGFR CKD-EPI 50.8 (>60)
[2022-03-20 07:44] LABS: Anisocytosis 1+; Hypochromasia 2+; Microcytosis 1+
[2022-03-20 07:45] LABS: ABS Lymphocytes 1.1 10^3/ul (1.0-4.8); ABS Neutrophils 3.8 10^3/ul (1.5-7.7)
[2022-03-20] MEDS: Cholecalciferol (VIT D3) 1,000 unit TAB PO SCH ×2 (09:41→22:53)
[2022-03-20] MEDS: IVABRADINE 5 MG PO SCH ×2 (09:44→22:52)
[2022-03-20] MEDS ORDERED: Furosemide 40 mg/4 ml IV VIAL IV ONE (09:52)
[2022-03-20] MEDS: Zinc Oxide 16% PASTE (Butt Paste) 30 gm TUBE TOPICAL SCH ×3 (12:15→22:52)
[2022-03-20] MEDS: Polyethylene Glycol 3350 17 GM PACKET PO PRN (12:16)
[2022-03-21] MEDS: IVABRADINE 5 MG PO SCH (08:23)
[2022-03-21] MEDS: Polyethylene Glycol 3350 17 GM PACKET PO PRN (08:23)
[2022-03-21] MEDS: Cholecalciferol (VIT D3) 1,000 unit TAB PO SCH (08:26)
[2022-03-21] MEDS: Zinc Oxide 16% PASTE (Butt Paste) 30 gm TUBE TOPICAL SCH (08:28)
[2022-03-21 09:00] LABS: Rapid COVID-19 Molecular Undetected (Undetected)
[2022-03-21 09:26] LABS: Blood Urea Nitrogen 30 mg/dL (6-24); CO2 Carbon Dioxide 33 mmol/L (22-32); Calcium 7.8 mg/dL (8.6-10.3); Chloride 101 mmol/L (101-111); Glucose 78 mg/dL (70-100); Sodium 139 mmol/L (135-145); eGFR CKD-EPI 53.9 (>60)
[2022-03-21 09:27] LABS: Anion Gap 5 mmol/L (2-11)
[2022-03-21 11:50] VITALS: BP 108/42
== END 2022-03-21 12:12 | DRG 291 ==
LOC: ED 14:35 → EDHOLD 14:35 → SUATTDRO 22:10 → MEDTELE 03-18 01:27 → SUATTDRO 03-18 15:44
PROVIDERS: ADMIT Student in an Organized Health Care Education/Training Program; ATTEND Internal Medicine